=== PATIENT | female | born 1950 ===

== ENCOUNTER 2016-10-10 05:27 | Emergency (ER) | payer OTHER ==
[2016-10-10 05:34] VITALS: BMI 29.2
[2016-10-10 05:40] VITALS: RESP 18; TEMP 98.1
[2016-10-10] MEDS ORDERED: Oxycodone/Acetaminophen 5/325 mg Tab PO STA (05:44)
--- NOTE | 2016-10-10 05:45 | ED PDOC ---
Arrival/HPI - General Chief Complaint: Back Pain Time Seen by Provider: 10/10/16 05:34 Historian: Patient - History of Present Illness Narrative History of Present Illness (Text): 10/10/16 05:46 Cynthia Allen is a 65 year old female, with a history of stage 4 colon cancer, seizures, kidney stones, diabetes, and hypertension, presents to the emergency department complaining of sudden onset left posterior rib pain since 4 am today. States she woke up from sleep with the pain. Pain is worsened with movement and deep inspirations. Denies any history of trauma to the area. Denies any fever, chills, headache, dizziness, chest pain, difficulty breathing , nausea, vomiting, diarrhea, or any other complaints at this time. Time/Duration: 1-3 hours Symptom Onset: Sudden Symptom Course: Unchanged Severity Level: Mild Activities at Onset: Sleeping Context: Home Past Medical History - Provider Review Nursing Documentation Reviewed: Yes - Past History Past History: Non-Contributing - Infectious Disease Hx of Infectious Diseases: None - Tetanus Immunization Tetanus Immunization: Unknown - Past Medical History Past Medical History: No Previous - Cardiac Hx Cardiac Disorders: Yes Hx Hypertension: Yes Hx Pacemaker: No Other/Comment: vit d difficiency, hypercholesteremia - Pulmonary Hx Respiratory Disorders: Yes Hx Asthma: Yes Hx Pneumonia: Yes Other/Comment: x smoker - Neurological Hx Neurological Disorder: Yes Hx Paralysis: No Hx Seizures: Yes - HEENT Hx HEENT Disorder: No - Renal Hx Renal Disorder: No Hx Kidney Stones: Yes (cystoscopy with stent) Other/Comment: lithotripsy - Endocrine/Metabolic Hx Endocrine Disorders: Yes Hx Diabetes Mellitus Type 1: Yes Hx Diabetes Mellitus Type 2: Yes Other/Comment: niddm - Hematological/Oncological Hx Blood Disorders: Yes Hx Blood Transfusions: No Hx Blood Transfusion Reaction: No Hx Cancer: Yes (colon 2x dx 2009 and 2014) Hx Chemotherapy: Yes (2009 and 2014) Other/Comment: had chemo 5 days ago, has 9 cycles as per pt - Integumentary Hx Dermatological Disorder: No - Musculoskeletal/Rheumatological Hx Musculoskeletal Disorders: No Hx Arthritis: Yes Hx Back Pain: Yes Hx Falls: No Hx Fractures: Yes (left arm 01/03/15 casted) Hx Herniated Disk: Yes (lower back) Hx Unsteady Gait: Yes (cane) - Gastrointestinal Hx Gastrointestinal Disorders: Yes Other/Comment: PELVIC MASS L; colorectal cancer - Genitourinary/Gynecological Hx Genitourinary Disorders: Yes Other/Comment: urinary frequency - Psychiatric Hx Psychophysiologic Disorder: Yes Hx Anxiety: Yes Hx Depression: Yes Hx Emotional Abuse: No Hx Panic Disorder: Yes Hx Physical Abuse: No Hx Substance Use: No - Surgical History Hx Appendectomy: Yes (2009) Hx Cholecystectomy: Yes Hx Hysterectomy: Yes (11/29/14) Other/Comment: lithotripsy, colon resection 2009, r ovary oopherectomy 2009 - Anesthesia Hx Anesthesia: Yes Hx Anesthesia Reactions: No Hx Malignant Hyperthermia: No - Suicidal Assessment Feels Threatened In Home Enviroment: No Family/Social History - Physician Review Nursing Documentation Reviewed: Yes Family/Social History: No Known Family HX Smoking Status: Former Smoker Hx Alcohol Use: No Hx Substance Use: No Hx Substance Use Treatment: No Allergies/Home Meds Allergies/Adverse Reactions: Allergies No Known Allergies Allergy (Verified 07/19/16 15:12) Home Medications: Home Meds Medication Instructions Recorded Confirmed Simvastatin 20 mg PO DAILY 12/17/14 08/06/16 Capecitabine 500 mg PO BID 04/04/16 08/06/16 Metformin ER [Glucophage XR] 500 mg PO DAILY 07/19/16 08/06/16 Review of Systems - Physician Review All systems were reviewed & negative as marked: Yes - Review of Systems Constitutional: Normal. absent: Fatigue, Fevers Respiratory: Normal. absent: SOB, Cough, Sputum Cardiovascular: Normal. absent: Chest Pain Gastrointestinal: Normal. absent: Abdominal Pain, Diarrhea, Nausea, Vomiting Genitourinary Female: Normal Musculoskeletal: Back Pain (posterior rib pain ) Skin: Normal Neurological: Normal. absent: Headache, Dizziness Psychiatric: Normal Physical Exam Vital Signs Reviewed: Yes Vital Signs Temp Pulse Resp BP Pulse Ox 10/10/16 07:37 73 18 123/60 100 10/10/16 05:34 98.1 F 84 18 152/80 H 99 Temperature: Afebrile Blood Pressure: Normal Pulse: Regular Respiratory Rate: Normal Appearance: Positive for: Well-Appearing, Non-Toxic, Comfortable Pain Distress: None Mental Status: Positive for: Alert and Oriented X 3 - Systems Exam Head: Present: Atraumatic, Normocephalic Pupils: Present: PERRL Conjunctiva: Present: Normal Mouth: Present: Moist Mucous Membranes Neck: Present: Normal Range of Motion Respiratory/Chest: Present: Clear to Auscultation, Good Air Exchange. No: Respiratory Distress, Accessory Muscle Use Cardiovascular: Present: Regular Rate and Rhythm, Normal S1, S2. No: Murmurs Abdomen: Present: Normal Bowel Sounds. No: Tenderness, Distention, Peritoneal Signs Back: Present: Other (posterior rib tenderness to palpation ) Upper Extremity: Present: Normal Inspection. No: Cyanosis, Edema Lower Extremity: Present: Normal Inspection. No: Edema Neurological: Present: GCS=15, CN II-XII Intact, Speech Normal Skin: Present: Warm, Dry, Normal Color. No: Rashes Medical Decision Making ED Course and Treatment: 10/10/16 05:54 Impression: A 65 year old female who presents to the Emergency department complaining of left posterior rib pain since 4 am today. Plan: -- EKG -- Labs, caridac enzymes -- CXR -- percocet -- Urinalysis -- Reassess and disposition Progress Notes: Re-evaluation Time: 07:44 Reassessment Condition: Re-examined, Improved - Lab Interpretations Lab Results: 10/10/16 05:30 10/10/16 05:30 Lab Results 10/10/16 06:00: Urine Color Yellow, Urine Appearance Clear, Urine pH 6.0, Ur Specific Staples 1.015, Urine Protein Negative, Urine Glucose (UA) >=1000, Urine Ketones Negative, Urine Blood Trace-intact H, Urine Nitrate Negative, Urine Bilirubin Negative, Urine Urobilinogen 0.2, Ur Leukocyte Esterase Negative , Urine RBC 0 - 2, Urine WBC 0 - 2, Ur Epithelial Cells 0 - 2 10/10/16 05:30: Sodium 137, Potassium 4.1, Chloride 104, Carbon Dioxide 23, Anion Gap 14, BUN 17, Creatinine 0.7, Est GFR ( Amer) > 60, Est GFR (Non- Af Amer) > 60, Random Glucose 279 H, Calcium 8.9, Total Bilirubin 0.9, AST 91 H , ALT 80 H, Alkaline Phosphatase 132, Troponin I 0.02 D, Total Protein 7.6, Albumin 4.0, Globulin 3.6, Albumin/Globulin Ratio 1.1 10/10/16 05:30: WBC 6.6, RBC 4.33, Hgb 14.9, Hct 41.2, MCV 95.2, MCH 34.4, MCHC 36.2, RDW 14.1, Plt Count 117 L, MPV 10.2, Gran % 45.6 L, Lymph % (Auto) 39.8 H , [place] % (Auto) 11.2 H, Eos % (Auto) 2.9, Baso % (Auto) 0.5, Gran # 3.01, Lymph # 2.6, [place] # 0.7 H, Eos # 0.2, Baso # 0.03 - RAD Interpretation Radiology Orders: 10/10/16 05:44 CHEST TWO VIEWS (PA/LAT) [RAD] Stat - Medication Orders Current Medication Orders: Discontinued Medications Oxycodone/Acetaminophen (Percocet 5/325 Mg Tab) 1 tab PO STAT STA Stop: 10/10/16 05:45 Last Admin: 10/10/16 06:02 Dose: 1 tab - Scribe Statement The provider has reviewed the documentation as recorded by the Claudia Son Provider Attestation: All medical record entries made by the Sangiblucia were at my direction and personally dictated by me. I have reviewed the chart and agree that the record accurately reflects my personal performance of the history, physical exam, medical decision making, and the department course for this patient. I have also personally directed, reviewed, and agree with the discharge instructions and disposition. Disposition/Present on Arrival - Present on Arrival Any Indicators Present on Arrival: No History of DVT/PE: No History of Uncontrolled Diabetes: No Urinary Catheter: No History of Decub. Ulcer: No History Surgical Site Infection Following: None - Disposition Have Diagnosis and Disposition been Completed?: Yes Diagnosis: Musculoskeletal pain Disposition: HOME/ ROUTINE Disposition Time: 07:44 Condition: GOOD Discharge Instructions (ExitCare): Back Pain (ED) Prescriptions: traMADol [Ultram] 50 mg PO TID PRN #10 tab PRN Reason: Pain, Severe (8-10)
[2016-10-10 06:07] LABS: ADD MANUAL DIFF? NO
[2016-10-10 06:31] LABS: URINE BILIRUBIN NEGATIVE (NEGATIVE); URINE BLOOD TRACE-INTACT (NEGATIVE); URINE GLUCOSE (UA) >=1000 mg/dL (NEGATIVE); URINE KETONE NEGATIVE (NEGATIVE); URINE LEUKOCYTE ESTERASE NEGATIVE Leu/uL (NEGATIVE); URINE PROTEIN NEGATIVE mg/dL (<30 mg/dL); URINE UROBILINOGEN 0.2 E.U./dL (<1 E.U./dL)
[2016-10-10 06:33] LABS: TROPONIN I 0.02 ng/mL
[2016-10-10 06:39] LABS: BASO # 0.03 K/mm3 (0.0-2.0); BASO % 0.5 % (0.0-3.0); EOS # 0.2 (0.0-0.7); EOS % 2.9 % (1.5-5.0); GRAN # 3.01 (1.4-6.5); GRAN % 45.6 % (50.0-68.0); HEMATOCRIT 41.2 % (36.0-48.0); LYMPH # 2.6 (1.2-3.4); LYMPH % 39.8 % (22.0-35.0); MEAN CELL VOLUME 95.2 fL (80.0-105.0); MEAN CORPUSCULAR HEMOGLOBIN 34.4 pg (25.0-35.0); MEAN CORPUSCULAR HGB CONC 36.2 g/dl (31.0-37.0); MEAN PLATELET VOLUME 10.2 fl (7.0-11.0); MONO # 0.7 (0.1-0.6); MONO % 11.2 % (1.0-6.0); PLATELET COUNT 117 10^3/uL (120.0-450.0); RED CELL DISTRIBUTION WIDTH 14.1 % (11.5-14.5); WHITE BLOOD COUNT 6.6 10^3/ul (4.5-11.0)
[2016-10-10 06:42] LABS: ALB/GLOB RATIO 1.1 (1.1-1.8); ALKALINE PHOSPHATASE 132 U/L (38-133); ALT/SGPT 80 U/L (7-56); AST/SGOT 91 U/L (15-39); BILIRUBIN,TOTAL 0.9 mg/dL (0.2-1.3); BLOOD UREA NITROGEN 17 mg/dL (7-21); CALCIUM 8.9 mg/dL (8.4-10.5); CARBON DIOXIDE 23 mmol/L (21-33); CHLORIDE 104 mmol/L (95-110); GFR AFRICAN-AMERICAN > 60; GLUCOSE,RANDOM 279 mg/dL (70-110); POTASSIUM 4.1 mmol/L (3.6-5.0); SODIUM 137 mmol/L (132-148); TOTAL PROTEIN 7.6 g/dL (5.8-8.3)
[2016-10-10 07:01] LABS: URINE APPEARANCE CLEAR (CLEAR); URINE COLOR YELLOW (YELLOW)
[2016-10-10 07:05] LABS: URINE EPITHELIAL CELLS 0 - 2 /hpf (0-5); URINE RBC 0 - 2 /hpf (0-2); URINE WBC 0 - 2 /hpf (0-6)
[2016-10-10 07:38] VITALS: BP 123/60; PULSE 73; O2SAT 100
--- NOTE | 2016-10-10 07:41 | RAD ---
HISTORY: fall COMPARISON: 08/06/2016 TECHNIQUE: Chest PA and lateral FINDINGS: LUNGS: No active pulmonary disease. PLEURA: No significant pleural effusion identified. No pneumothorax apparent. CARDIOVASCULAR: Normal. OSSEOUS STRUCTURES: No significant abnormalities. VISUALIZED UPPER ABDOMEN: Normal. OTHER FINDINGS: Right PICC line insertion as before with tip in right atrium. Right upper quadrant cholecystectomy clips IMPRESSION: No interval active disease.
--- NOTE | 2016-10-10 12:51 | CARD ---
APPROVED REPORT EKG Measurement Heart [id number] <Conclusion> Normal sinus rhythm Moderate voltage criteria for LVH, may be normal variant Borderline ECG
== END 2016-10-10 07:54 | disposition home or self-care (01) ==
LOC: ED 05:27
DX: M79.1 Myalgia (principal); I10 Essential (primary) hypertension; Z85.038 Personal history of other malignant neoplasm of large intestine; Z87.891 Personal history of nicotine dependence

== ENCOUNTER 2016-10-23 17:49 | Emergency (ER) | payer OTHER ==
[2016-10-23 17:50] VITALS: BMI 29.2
[2016-10-23 17:57] VITALS: BP 157/73; PULSE 80; RESP 19; TEMP 98.2; O2SAT 97
--- NOTE | 2016-10-23 18:28 | ED PDOC ---
Arrival/HPI - General Historian: Patient - History of Present Illness Time/Duration: 4-6 hours Symptom Onset: Sudden Symptom Course: Unchanged Quality: Aching Severity Level: 8 <Narinder Saucedo - Last Filed: 10/23/16 21:16> <Dania Patrick - Last Filed: 10/23/16 21:23> - General Chief Complaint: Back Pain Time Seen by Provider: 10/23/16 17:59 - History of Present Illness Narrative History of Present Illness (Text): 65 F with pmh of colon cancer (stage 4), seizures, kidney stones, diabetes, and hypertension, presents to the ED complaining of R sided shoulder, back and knee pain. Pt states that the pain has been going on since 12pm. She states that she did some heavy lifting doing her shopping yesterday and she does not know if her pain is related to that. Her pain is worse with activity. She has tried taking tramadol for the pain with out any relief. She states that her back pain is what brought her into the ED and is 8/10 in severity. Denies any fever, chills, headache, dizziness, chest pain, palpitations, sob, nausea, vomiting, diarrhea, or any other complaints at this time. (Narinder Saucedo) Past Medical History - Provider Review Nursing Documentation Reviewed: Yes - Past History Past History: Non-Contributing - Infectious Disease Hx of Infectious Diseases: None - Tetanus Immunization Tetanus Immunization: Unknown - Past Medical History Past Medical History: No Previous - Cardiac Hx Cardiac Disorders: Yes Hx Hypertension: Yes Hx Pacemaker: No - Pulmonary Hx Respiratory Disorders: Yes Hx Asthma: Yes Hx Pneumonia: Yes Other/Comment: x smoker - Neurological Hx Neurological Disorder: Yes Hx Paralysis: No Hx Seizures: Yes - HEENT Hx HEENT Disorder: No - Renal Hx Renal Disorder: No Hx Kidney Stones: Yes (cystoscopy with stent) Other/Comment: lithotripsy - Endocrine/Metabolic Hx Endocrine Disorders: Yes Hx Diabetes Mellitus Type 2: Yes Other/Comment: niddm - Hematological/Oncological Hx Blood Disorders: Yes Hx Blood Transfusions: No Hx Blood Transfusion Reaction: No Hx Cancer: Yes (colo/rectal in remission) Hx Chemotherapy: Yes (2009 and 2014) Other/Comment: chemo PO - Integumentary Hx Dermatological Disorder: No - Musculoskeletal/Rheumatological Hx Musculoskeletal Disorders: No Hx Arthritis: Yes Hx Back Pain: Yes Hx Falls: No Hx Fractures: Yes (left arm 01/03/15 casted) Hx Herniated Disk: Yes (lower back) Hx Unsteady Gait: Yes (cane) - Gastrointestinal Hx Gastrointestinal Disorders: Yes Other/Comment: PELVIC MASS L; colorectal cancer - Genitourinary/Gynecological Hx Genitourinary Disorders: Yes Other/Comment: urinary frequency - Psychiatric Hx Psychophysiologic Disorder: Yes Hx Anxiety: Yes Hx Depression: Yes Hx Emotional Abuse: No Hx Panic Disorder: Yes Hx Physical Abuse: No Hx Substance Use: No - Surgical History Hx Appendectomy: Yes (2009) Hx Cholecystectomy: Yes Hx Hysterectomy: Yes (11/29/14) Other/Comment: lithotripsy, colon resection 2009, r ovary oopherectomy 2009 - Anesthesia Hx Anesthesia: Yes Hx Anesthesia Reactions: No Hx Malignant Hyperthermia: No - Suicidal Assessment Feels Threatened In Home Enviroment: No <Narinder Saucedo - Last Filed: 10/23/16 21:16> Family/Social History - Physician Review Nursing Documentation Reviewed: Yes Family/Social History: No Known Family HX Smoking Status: Former Smoker Hx Alcohol Use: No Hx Substance Use: No Hx Substance Use Treatment: No <Narinder Saucedo - Last Filed: 10/23/16 21:16> Allergies/Home Meds <Narinder Saucedo - Last Filed: 10/23/16 21:16> <Dania Patrick - Last Filed: 10/23/16 21:23> Allergies/Adverse Reactions: Allergies No Known Allergies Allergy (Verified 10/23/16 17:52) Home Medications: Home Meds Medication Instructions Recorded Confirmed Simvastatin 20 mg PO DAILY 12/17/14 10/23/16 Capecitabine 500 mg PO BID 04/04/16 10/23/16 Metformin ER [Glucophage XR] 500 mg PO DAILY 07/19/16 10/23/16 Review of Systems - Physician Review All systems were reviewed & negative as marked: Yes - Review of Systems Constitutional: absent: Weight Change, Fevers Eyes: absent: Vision Changes ENT: absent: Hearing Changes Respiratory: absent: SOB, Cough Cardiovascular: absent: Chest Pain, Palpitations Gastrointestinal: absent: Abdominal Pain, Diarrhea, Nausea, Vomiting Genitourinary Female: absent: Dysuria, Vaginal Discharge Musculoskeletal: Back Pain Neurological: absent: Headache, Dizziness, Focal Weakness Endocrine: absent: Diaphoresis Psychiatric: absent: Anxiety, Depression <Narinder Saucedo - Last Filed: 10/23/16 21:16> Physical Exam Vital Signs Reviewed: Yes Temperature: Afebrile Blood Pressure: Hypertensive Pulse: Regular Respiratory Rate: Normal Appearance: Positive for: Well-Appearing, Non-Toxic, Comfortable Pain Distress: Mild Mental Status: Positive for: Alert and Oriented X 3 - Systems Exam Head: Present: Atraumatic, Normocephalic Pupils: Present: PERRL Extroacular Muscles: Present: EOMI Mouth: Present: Moist Mucous Membranes Neck: Present: Normal Range of Motion Respiratory/Chest: Present: Clear to Auscultation, Good Air Exchange. No: Respiratory Distress, Accessory Muscle Use Cardiovascular: Present: Regular Rate and Rhythm, Normal S1, S2. No: Murmurs Abdomen: Present: Normal Bowel Sounds. No: Tenderness, Distention, Peritoneal Signs Back: Present: Normal Inspection, Paraspinal Tenderness (mild ). No: Midline Tenderness Upper Extremity: Present: Normal Inspection. No: Cyanosis, Edema Lower Extremity: Present: Normal Inspection. No: Edema Neurological: Present: GCS=15, CN II-XII Intact, Speech Normal Skin: Present: Warm, Dry, Normal Color. No: Rashes Psychiatric: Present: Alert, Oriented x 3, Normal Insight, Normal Concentration <Narinder Saucedo - Last Filed: 10/23/16 21:16> Medical Decision Making <Narinder Saucedo - Last Filed: 10/23/16 21:16> - Lab Interpretations I have reviewed the lab results: Yes <Dania Patrick - Last Filed: 10/23/16 21:23> ED Course and Treatment: Impression: 65 F with pmh of colon cancer (stage 4), seizures, kidney stones, diabetes, and hypertension, presents to the ED complaining of R sided shoulder, back and knee pain. Differential Diagnosis included but are not limited to: MSK sprain vs spinal mets vs pyelo vs nephrolithiasis Plan: - CBC, CMP, Mg, P - Urinalysis - Pain control - CT abd pelvis w/o contrast - CT lumbar spine to r/o mets - Reassess and disposition Prior Visits: Notes and results from previous visits were reviewed. Patient last came into the emergency room on 10/10/16 for evaluation of L post rib pain Progress Notes: 10/23/16 21:05 CT abd pelvis w/o contrast IMPRESSION: 1. Cholecystectomy. 2. Nonobstructive stone material in the left kidney. 3. Hysterectomy. 4. Apparent sigmoid resection. 5. Fatty liver. CT lumbar spine to r/o mets IMPRESSION: Degenerative changes as described. 10/23/16 21:11 Upon reevaluation patient pain has clinically significantly improved. Will d/c patient home with instructions to follow up with PMD. (Narinder Saucedo) Patient seen and examined with resident. Came up with treatment and disposition plan with resident. The patient is a 65 year old female who comes to the emergency department for evaluation of right sided shoulder, back and knee pain. Additional HPI details as noted by the resident. On physical examination the patient has mild tenderness to palpation at the right paralumbar region. Abdomen/Pelvis CT, Lumbar Spine CT,lab work and Urinalysis ordered to rule out fracture vs. sprain vs spinal mets vs pyelo vs nephrolithiasis. Abdomen/Pelvis CT shows Cholecystectomy; Nonobstructive stone material in the left kidney; Hysterectomy; Apparent sigmoid resection; Fatty liver. Lumbar Spine CT shows degenerative changes. On re-evaluation, the patient feels better and is in no acute distress. Results and plan was discussed with the patient, who expresses understanding. Patient in agreement with plan to discharged home. Patient is stable for discharge. Patient was instructed to follow up with physician/clinic in 1-2 days or return if symptoms worsen or new concerning symptoms arise. (Dania Patrick) - Lab Interpretations Lab Results: 10/23/16 18:35 10/23/16 18:35 Lab Results 10/23/16 18:35: Sodium 135, Potassium 4.0, Chloride 98, Carbon Dioxide 26, Anion Gap 15, BUN 11, Creatinine 0.7, Est GFR ( Amer) > 60, Est GFR (Non- Af Amer) > 60, Random Glucose 300 H, Calcium 9.5, Phosphorus 3.7, Magnesium 2.0 , Total Bilirubin 1.1, AST 100 H, ALT 90 H, Alkaline Phosphatase 131, Total Protein 8.1, Albumin 4.2, Globulin 3.9, Albumin/Globulin Ratio 1.1, Lipase 172 10/23/16 18:35: WBC 7.9, RBC 4.59, Hgb 15.8, Hct 43.5, MCV 94.8, MCH 34.4, MCHC 36.3, RDW 13.9, Plt Count 142, MPV 10.2, Gran % 47.2 L, Lymph % (Auto) 41.5 H, [place] % (Auto) 8.6 H, Eos % (Auto) 2.3, Baso % (Auto) 0.4, Gran # 3.73, Lymph # 3.3, [place] # 0.7 H, Eos # 0.2, Baso # 0.03 - RAD Interpretation Radiology Orders: 10/23/16 18:19 ABD & PELVIS W/O PO OR IV CONT [CT] Stat LUMBAR SPINE W/O CONTRAST [CT] Stat - Medication Orders Current Medication Orders: Discontinued Medications Diazepam (Valium) 2.5 mg PO ONCE ONE Stop: 10/23/16 18:33 Last Admin: 10/23/16 18:47 Dose: 2.5 mg Ketorolac Tromethamine (Toradol) 30 mg IVP STAT STA Stop: 10/23/16 18:32 Last Admin: 10/23/16 18:46 Dose: 30 mg Morphine Sulfate (Morphine) 2 mg IVP STAT STA Stop: 10/23/16 18:33 Last Admin: 10/23/16 18:46 Dose: 2 mg - PA / [employer] / Resident Statement / has reviewed & agrees with the documentation as recorded. / has examined the patient and agrees with the treatment plan. <Narinder Saucedo - Last Filed: 10/23/16 21:16> - Scribe Statement The provider has reviewed the documentation as recorded by the Scribe <Dania Patrick - Last Filed: 10/23/16 21:23> - Scribe Statement Sanjiv Casarez Provider Scribe Attestation: All medical record entries made by the Scribe were at my direction and personally dictated by me. I have reviewed the chart and agree that the record accurately reflects my personal performance of the history, physical exam, medical decision making, and the department course for this patient. I have also personally directed, reviewed, and agree with the discharge instructions and disposition. (Dania Patrick) Disposition/Present on Arrival - Present on Arrival Any Indicators Present on Arrival: No History of DVT/PE: No History of Uncontrolled Diabetes: No Urinary Catheter: No History of Decub. Ulcer: No History Surgical Site Infection Following: None - Disposition Have Diagnosis and Disposition been Completed?: Yes Disposition Time: 21:11 Patient Plan: Discharge <Narinder Saucedo - Last Filed: 10/23/16 21:16> <Dania Patrick - Last Filed: 10/23/16 21:23> - Disposition Diagnosis: Back ache Disposition: HOME/ ROUTINE Patient Problems: Current Active Problems Problem Status Onset Back ache Acute Additional Instructions: Take your medications as prescribed. Follow up with PMD with in next 3 days. If your symptoms recur come back to the closest ED. Prescriptions: Baclofen [Lioresal] 1 cap PO TID PRN #20 tab PRN Reason: Pain, Moderate (4-7) Celecoxib [Celebrex] 100 mg PO BID PRN #30 capsule PRN Reason: Pain, Moderate (4-7)
[2016-10-23] MEDS ORDERED: Morphine 2 mg/ml ISec IVP STA (18:32)
[2016-10-23 18:36] LABS: ADD MANUAL DIFF? NO
[2016-10-23 18:44] LABS: BASO # 0.03 [, K/mm3] (0.0-2.0); BASO % 0.4 % (0.0-3.0); EOS # 0.2 (0.0-0.7); EOS % 2.3 % (1.5-5.0); GRAN # 3.73 (1.4-6.5); GRAN % 47.2 % (50.0-68.0); HEMATOCRIT 43.5 % (36.0-48.0); LYMPH # 3.3 (1.2-3.4); LYMPH % 41.5 % (22.0-35.0); MEAN CELL VOLUME 94.8 fL (80.0-105.0); MEAN CORPUSCULAR HEMOGLOBIN 34.4 pg (25.0-35.0); MEAN CORPUSCULAR HGB CONC 36.3 g/dl (31.0-37.0); MEAN PLATELET VOLUME 10.2 fl (7.0-11.0); MONO # 0.7 (0.1-0.6); MONO % 8.6 % (1.0-6.0); PLATELET COUNT 142 [, 10^3/uL] (120.0-450.0); RED CELL DISTRIBUTION WIDTH 13.9 % (11.5-14.5); WHITE BLOOD COUNT 7.9 [, 10^3/ul] (4.5-11.0)
[2016-10-23 18:52] LABS: ALB/GLOB RATIO 1.1 (1.1-1.8); ALKALINE PHOSPHATASE 131 U/L (38-133); ALT/SGPT 90 U/L (7-56); AST/SGOT 100 U/L (15-39); BILIRUBIN,TOTAL 1.1 mg/dL (0.2-1.3); BLOOD UREA NITROGEN 11 mg/dL (7-21); CALCIUM 9.5 mg/dL (8.4-10.5); CARBON DIOXIDE 26 mmol/L (21-33); CHLORIDE 98 mmol/L (98-107); GFR AFRICAN-AMERICAN > 60; LIPASE 172 U/L (23-300); PHOSPHOROUS 3.7 mg/dL (2.5-4.5); SODIUM 135 mmol/L (132-148); TOTAL PROTEIN 8.1 g/dL (5.8-8.3)
[2016-10-23 19:00] LABS: GLUCOSE,RANDOM 300 mg/dL (70-110)
--- NOTE | 2016-10-24 10:20 | CT ---
PROCEDURE: CT Lumbar Spine without contrast HISTORY: Back pain COMPARISON: None. TECHNIQUE: Axial computed tomography images were obtained of the lumbar spine without the use of intravenous contrast. Coronal and sagittal reformatted images were created and reviewed. Radiation dose: Total exam DLP = 637 mGy-cm. This CT exam was performed using one or more of the following dose reduction techniques: Automated exposure control, adjustment of the mA and/or kV according to patient size, and/or use of iterative reconstruction technique. FINDINGS: VERTEBRAE: Unremarkable. No fracture. Normal alignment. DISCS/SPINAL CANAL/NEURAL FORAMINA: L1-2: Unremarkable. L2-3: Unremarkable. L3-4: Unremarkable. L4-5: Mild to moderate disc bulge. Mild stenosis L5-S1: Moderate disc bulge or broad-based protrusion slightly asymmetric to the left PARASPINAL SOFT TISSUES: Unremarkable. OTHER FINDINGS: None. IMPRESSION: L4-5 mild to moderate disc bulge with mild central stenosis. L5-S1 moderate broad-based disc protrusion asymmetric to the left
--- NOTE | 2016-10-24 10:41 | CT ---
PROCEDURE: CT Abdomen and Pelvis without intravenous contrast HISTORY: back pain COMPARISON: None. TECHNIQUE: Without contrast.. Contrast Dose: Radiation dose: Total exam DLP = 476 mGy-cm. This CT exam was performed using one or more of the following dose reduction techniques: Automated exposure control, adjustment of the mA and/or kV according to patient size, and/or use of iterative reconstruction technique. FINDINGS: LOWER THORAX: Unremarkable. LIVER: Unremarkable. No gross lesion or ductal dilatation. GALLBLADDER AND BILE DUCTS: Gallbladder removed PANCREAS: Unremarkable. No gross lesion or ductal dilatation. SPLEEN: Unremarkable. ADRENALS: Unremarkable. No mass. KIDNEYS AND URETERS: Nonobstructing 8 mm stone left kidney VASCULATURE: Unremarkable. No aortic aneurysm. BOWEL: Unremarkable. No obstruction. No gross mural thickening. Suture line in the sigmoid colon. APPENDIX: Unremarkable. Normal appendix. PERITONEUM: Unremarkable. No free fluid. No free air. LYMPH NODES: Unremarkable. No enlarged lymph nodes. BLADDER: Unremarkable. REPRODUCTIVE: Unremarkable. BONES: No acute fracture. OTHER FINDINGS: The report concurs with the preliminary [facility] report IMPRESSION: No acute intra-abdominal findings.
== END 2016-10-23 21:25 | disposition home or self-care (01) ==
LOC: ED 17:49
DX: M54.9 Dorsalgia, unspecified (principal); I10 Essential (primary) hypertension; Z87.891 Personal history of nicotine dependence
CPT/HCPCS: 72131; 74176; 80053; 83690; 83735; 84100; 85025; 96374; 96375; 99283; J1885; J2270

== ENCOUNTER 2016-11-07 05:54 | Observation (INO) | payer OTHER ==
[2016-11-07 05:54] VITALS: BMI 29.2
--- NOTE | 2016-11-07 06:27 | ED PDOC ---
Arrival/HPI - General Chief Complaint: Chest Pain Time Seen by Provider: 11/07/16 05:55 - History of Present Illness Narrative History of Present Illness (Text): 11/07/16 06:26 Patient presents with midsternal chest pain awoke from sleep at 5:15 pain is worse with deep breath and inspiration and to palpation of the chest wall she denies any fever denies any chills denies any dizziness and denies any headache or shortness of breath Past Medical History - Provider Review Nursing Documentation Reviewed: Yes - Past History Past History: Non-Contributing - Infectious Disease Hx of Infectious Diseases: None - Tetanus Immunization Tetanus Immunization: Unknown - Past Medical History Past Medical History: No Previous - Cardiac Hx Cardiac Disorders: Yes Hx Hypertension: Yes Hx Pacemaker: No - Pulmonary Hx Respiratory Disorders: Yes Hx Asthma: Yes Hx Pneumonia: Yes Other/Comment: x smoker - Neurological Hx Neurological Disorder: Yes Hx Paralysis: No Hx Seizures: Yes - HEENT Hx HEENT Disorder: No - Renal Hx Renal Disorder: No Hx Kidney Stones: Yes (cystoscopy with stent) Other/Comment: lithotripsy - Endocrine/Metabolic Hx Endocrine Disorders: Yes Hx Diabetes Mellitus Type 2: Yes Other/Comment: niddm - Hematological/Oncological Hx Blood Disorders: Yes Hx Blood Transfusions: No Hx Blood Transfusion Reaction: No Hx Cancer: Yes (colo/rectal in remission) Hx Chemotherapy: Yes (2009 and 2014) Other/Comment: chemo PO - Integumentary Hx Dermatological Disorder: No - Musculoskeletal/Rheumatological Hx Musculoskeletal Disorders: No Hx Arthritis: Yes Hx Back Pain: Yes Hx Falls: No Hx Fractures: Yes (left arm 01/03/15 casted) Hx Herniated Disk: Yes (lower back) Hx Unsteady Gait: Yes (cane) - Gastrointestinal Hx Gastrointestinal Disorders: Yes Other/Comment: PELVIC MASS L; colorectal cancer - Genitourinary/Gynecological Hx Genitourinary Disorders: Yes Other/Comment: urinary frequency - Psychiatric Hx Psychophysiologic Disorder: Yes Hx Anxiety: Yes Hx Depression: Yes Hx Emotional Abuse: No Hx Panic Disorder: Yes Hx Physical Abuse: No Hx Substance Use: No - Surgical History Hx Appendectomy: Yes (2009) Hx Cholecystectomy: Yes Hx Hysterectomy: Yes (11/29/14) Other/Comment: lithotripsy, colon resection 2009, r ovary oopherectomy 2009 - Anesthesia Hx Anesthesia: Yes Hx Anesthesia Reactions: No Hx Malignant Hyperthermia: No - Suicidal Assessment Feels Threatened In Home Enviroment: No Family/Social History - Physician Review Nursing Documentation Reviewed: Yes Family/Social History: No Known Family HX Smoking Status: Former Smoker Hx Alcohol Use: No Hx Substance Use: No Hx Substance Use Treatment: No Allergies/Home Meds Allergies/Adverse Reactions: Allergies No Known Allergies Allergy (Verified 10/23/16 17:52) Home Medications: Home Meds Medication Instructions Recorded Confirmed Simvastatin 20 mg PO DAILY 12/17/14 11/07/16 Capecitabine 500 mg PO BID 04/04/16 11/07/16 Metformin ER [Glucophage XR] 500 mg PO DAILY 07/19/16 11/07/16 Review of Systems - Physician Review All systems were reviewed & negative as marked: Yes - Review of Systems Constitutional: Normal Eyes: Normal ENT: Normal Respiratory: Normal Cardiovascular: Chest Pain. absent: KHAN Gastrointestinal: Normal Genitourinary Female: Normal Musculoskeletal: Normal Skin: Normal Neurological: Normal Endocrine: Normal Hemo/Lymphatic: Normal Psychiatric: Normal Physical Exam Vital Signs Reviewed: Yes Vital Signs Temp Pulse Pulse Resp BP BP Pulse Ox 11/07/16 11:31 98.9 F 69 14 135/74 98 11/07/16 09:58 65 15 139/75 98 11/07/16 06:15 62 154/78 H 11/07/16 05:57 98.1 F 74 18 183/80 H 99 Temperature: Afebrile Blood Pressure: Normal Pulse: Regular Respiratory Rate: Normal Appearance: Positive for: Well-Appearing, Non-Toxic, Comfortable Pain Distress: None Mental Status: Positive for: Alert and Oriented X 3 - Systems Exam Head: Present: Atraumatic, Normocephalic Pupils: Present: PERRL Extroacular Muscles: Present: EOMI Conjunctiva: Present: Normal Mouth: Present: Moist Mucous Membranes Neck: Present: Normal Range of Motion Respiratory/Chest: Present: Clear to Auscultation, Good Air Exchange, Tender to Palpation (Midsternum). No: Respiratory Distress, Accessory Muscle Use Cardiovascular: Present: Regular Rate and Rhythm, Normal S1, S2. No: Murmurs Abdomen: Present: Normal Bowel Sounds. No: Tenderness, Distention, Peritoneal Signs Back: Present: Normal Inspection Upper Extremity: Present: Normal Inspection. No: Cyanosis, Edema Lower Extremity: Present: Normal Inspection. No: Edema Neurological: Present: GCS=15, CN II-XII Intact, Speech Normal Skin: Present: Warm, Dry, Normal Color. No: Rashes Psychiatric: Present: Alert, Oriented x 3, Normal Insight, Normal Concentration Medical Decision Making - Lab Interpretations Lab Results: 11/07/16 07:00 11/07/16 07:00 Lab Results 11/07/16 07:30: Urine Color Yellow, Urine Appearance Sl cloudy, Urine pH 6.0, Ur Specific [place] 1.025, Urine Protein Negative, Urine Glucose (UA) >=1000, Urine Ketones Negative, Urine Blood Trace-intact H, Urine Nitrate Positive H, Urine Bilirubin Negative, Urine Urobilinogen 0.2, Ur Leukocyte Esterase Trace H , Urine RBC 0 - 2, Urine WBC Tntc, Ur Epithelial Cells 1 - 3, Urine Bacteria Large 11/07/16 07:00: Sodium 136, Potassium 4.0, Chloride 103, Carbon Dioxide 28, Anion Gap 9 L, BUN 9, Creatinine 0.7, Est GFR ( Amer) > 60, Est GFR (Non- Af Amer) > 60, Random Glucose 298 H, Calcium 8.9, Magnesium 2.0, Total Bilirubin 0.9, AST 75 H, ALT 87 H, Alkaline Phosphatase 105, Lactate Dehydrogenase 624, Total Creatine Kinase 70, Troponin I 0.02, NT-Pro-B Natriuret Pep 63.4, Total Protein 6.9, Albumin 3.6, Globulin 3.2, Albumin/ Globulin Ratio 1.1 11/07/16 07:00: D-Dimer, Quantitative 0.27 11/07/16 07:00: WBC 6.7, RBC 4.13, Hgb 14.1, Hct 39.4, MCV 95.4, MCH 34.1, MCHC 35.8, RDW 13.9, Plt Count 119 L, MPV 10.5, Gran % 47.2 L, Lymph % (Auto) 38.2 H , [place] % (Auto) 11.5 H, Eos % (Auto) 2.5, Baso % (Auto) 0.6, Gran # 3.14, Lymph # 2.6, [place] # 0.8 H, Eos # 0.2, Baso # 0.04 - RAD Interpretation Radiology Orders: 11/07/16 06:28 CHEST PORTABLE [RAD] Stat - EKG Interpretation EKG Interpretation (Text): 11/07/16 06:29 normal sinus rhythm rate 69 , ns st changes - Medication Orders Current Medication Orders: Atorvastatin Calcium (Lipitor) 20 mg PO DAILY [facility] Carbamazepine (Tegretol) 200 mg PO BID RASHEEDA PRN Reason: Protocol Last Admin: 11/07/16 18:14 Dose: 200 mg Insulin Human Lispro (Humalog Med) 0 units SC ACHS [facility] PRN Reason: Protocol Levetiracetam (Keppra) 750 mg PO BID [facility] Last Admin: 11/07/16 18:14 Dose: 750 mg Levofloxacin (Levaquin) 500 mg PO DAILY [facility] Last Admin: 11/07/16 18:16 Dose: 500 mg Metformin HCl (Glucophage Xr) 500 mg PO DAILY [facility] Last Admin: 11/07/16 11:51 Dose: 500 mg Naproxen (Anaprox Ds) 550 mg PO BID [facility] Last Admin: 11/07/16 18:15 Dose: 550 mg Discontinued Medications Atorvastatin Calcium (Lipitor) 10 mg PO DAILY [facility] Last Admin: 11/07/16 11:48 Dose: 10 mg Ceftriaxone Sodium (Rocephin 1 Gram Ivpb) 1 gm in 100 mls @ 200 mls/hr IVPB STAT STA PRN Reason: Protocol Stop: 11/07/16 10:12 Last Admin: 11/07/16 09:53 Dose: 200 mls/hr Naproxen (Anaprox Ds) 550 mg PO STAT STA Stop: 11/07/16 12:02 Last Admin: 11/07/16 12:53 Dose: 550 mg - Transfer of Care Patient signed out to Dr:: juli labs re eval and dispo Disposition/Present on Arrival - Present on Arrival Any Indicators Present on Arrival: No History of DVT/PE: No History of Uncontrolled Diabetes: No Urinary Catheter: No History of Decub. Ulcer: No History Surgical Site Infection Following: None - Disposition Have Diagnosis and Disposition been Completed?: Yes Diagnosis: UTI (urinary tract infection), Chest pain Disposition: HOSPITALIZED Disposition Time: 07:00 Patient Problems: Current Active Problems Problem Status Onset Chest pain Acute UTI (urinary tract infection) Acute Condition: STABLE
[2016-11-07 07:30] LABS: ADD MANUAL DIFF? NO
[2016-11-07 07:41] LABS: URINE BILIRUBIN NEGATIVE (NEGATIVE); URINE BLOOD TRACE-INTACT (NEGATIVE); URINE GLUCOSE (UA) >=1000 mg/dL (NEGATIVE); URINE KETONE NEGATIVE (NEGATIVE); URINE LEUKOCYTE ESTERASE TRACE Leu/uL (NEGATIVE); URINE PROTEIN NEGATIVE mg/dL (<30 mg/dL); URINE UROBILINOGEN 0.2 E.U./dL (<1 E.U./dL)
[2016-11-07 07:43] LABS: BASO # 0.04 K/mm3 (0.0-2.0); BASO % 0.6 % (0.0-3.0); EOS # 0.2 (0.0-0.7); EOS % 2.5 % (1.5-5.0); GRAN # 3.14 (1.4-6.5); GRAN % 47.2 % (50.0-68.0); HEMATOCRIT 39.4 % (36.0-48.0); LYMPH # 2.6 (1.2-3.4); LYMPH % 38.2 % (22.0-35.0); MEAN CELL VOLUME 95.4 fL (80.0-105.0); MEAN CORPUSCULAR HEMOGLOBIN 34.1 pg (25.0-35.0); MEAN CORPUSCULAR HGB CONC 35.8 g/dl (31.0-37.0); MEAN PLATELET VOLUME 10.5 fl (7.0-11.0); MONO # 0.8 (0.1-0.6); MONO % 11.5 % (1.0-6.0); PLATELET COUNT 119 10^3/uL (120.0-450.0); RED CELL DISTRIBUTION WIDTH 13.9 % (11.5-14.5); WHITE BLOOD COUNT 6.7 10^3/ul (4.5-11.0)
[2016-11-07 07:47] LABS: URINE APPEARANCE SL CLOUDY (CLEAR); URINE COLOR YELLOW (YELLOW)
[2016-11-07 07:47] LABS: ALB/GLOB RATIO 1.1 (1.1-1.8); ALKALINE PHOSPHATASE 105 U/L (38-133); ALT/SGPT 87 U/L (7-56); AST/SGOT 75 U/L (15-39); BILIRUBIN,TOTAL 0.9 mg/dL (0.2-1.3); BLOOD UREA NITROGEN 9 mg/dL (7-21); CALCIUM 8.9 mg/dL (8.4-10.5); CARBON DIOXIDE 28 mmol/L (21-33); CHLORIDE 103 mmol/L (98-107); GFR AFRICAN-AMERICAN > 60; GLUCOSE,RANDOM 298 mg/dL (70-110); SODIUM 136 mmol/L (132-148); TOTAL PROTEIN 6.9 g/dL (5.8-8.3)
[2016-11-07 07:53] LABS: URINE BACTERIA LARGE (NEG); URINE RBC 0 - 2 /hpf (0-2); URINE WBC TNTC /hpf (0-6)
[2016-11-07 07:59] LABS: TROPONIN I 0.02 ng/mL
--- NOTE | 2016-11-07 08:48 | ED PDOC ---
Physical Exam Vital Signs Temp Pulse Pulse Resp BP BP Pulse Ox 11/07/16 06:15 62 154/78 H 11/07/16 05:57 98.1 F 74 18 183/80 H 99 Medical Decision Making ED Course and Treatment: 11/07/16 07:00 Patient signed out to me by Dr. De Jesus pending labs, reevaluation, and disposition. 11/07/16 09:[address] Adhikari, covering for Dr. Shea, agrees with admission to [facility], asked to consult Dr. Lovelace. - Lab Interpretations Lab Results: 11/07/16 07:00 11/07/16 07:00 Lab Results 11/07/16 07:30: Urine Color Yellow, Urine Appearance Sl cloudy, Urine pH 6.0, Ur Specific [place] 1.025, Urine Protein Negative, Urine Glucose (UA) >=1000, Urine Ketones Negative, Urine Blood Trace-intact H, Urine Nitrate Positive H, Urine Bilirubin Negative, Urine Urobilinogen 0.2, Ur Leukocyte Esterase Trace H , Urine RBC 0 - 2, Urine WBC Tntc, Ur Epithelial Cells 1 - 3, Urine Bacteria Large 11/07/16 07:00: Sodium 136, Potassium 4.0, Chloride 103, Carbon Dioxide 28, Anion Gap 9 L, BUN 9, Creatinine 0.7, Est GFR ( Amer) > 60, Est GFR (Non- Af Amer) > 60, Random Glucose 298 H, Calcium 8.9, Magnesium 2.0, Total Bilirubin 0.9, AST 75 H, ALT 87 H, Alkaline Phosphatase 105, Lactate Dehydrogenase 624, Total Creatine Kinase 70, Troponin I 0.02, NT-Pro-B Natriuret Pep 63.4, Total Protein 6.9, Albumin 3.6, Globulin 3.2, Albumin/ Globulin Ratio 1.1 11/07/16 07:00: D-Dimer, Quantitative 0.27 11/07/16 07:00: WBC 6.7, RBC 4.13, Hgb 14.1, Hct 39.4, MCV 95.4, MCH 34.1, MCHC 35.8, RDW 13.9, Plt Count 119 L, MPV 10.5, Gran % 47.2 L, Lymph % (Auto) 38.2 H , [place] % (Auto) 11.5 H, Eos % (Auto) 2.5, Baso % (Auto) 0.6, Gran # 3.14, Lymph # 2.6, [place] # 0.8 H, Eos # 0.2, Baso # 0.04 - RAD Interpretation Radiology Orders: 11/07/16 06:28 CHEST PORTABLE [RAD] Stat - Medication Orders Current Medication Orders: Ceftriaxone Sodium (Rocephin 1 Gram Ivpb) 1 gm in 100 mls @ 200 mls/hr IVPB STAT STA PRN Reason: Protocol Stop: 11/07/16 10:12 Disposition/Present on Arrival - Present on Arrival Any Indicators Present on Arrival: No History of DVT/PE: No History of Uncontrolled Diabetes: No Urinary Catheter: No History of Decub. Ulcer: No History Surgical Site Infection Following: None - Disposition Have Diagnosis and Disposition been Completed?: Yes Diagnosis: UTI (urinary tract infection), Chest pain Disposition: HOSPITALIZED Disposition Time: 09:45 Patient Problems: Current Active Problems Problem Status Onset Chest pain Acute UTI (urinary tract infection) Acute Condition: STABLE
--- NOTE | 2016-11-07 09:14 | RAD ---
HISTORY: cp COMPARISON: 10/10/2016 FINDINGS: LUNGS: No active pulmonary disease. PLEURA: No significant pleural effusion identified, no pneumothorax apparent. CARDIOVASCULAR: Normal. OSSEOUS STRUCTURES: No significant abnormalities. VISUALIZED UPPER ABDOMEN: Normal. OTHER FINDINGS: None. IMPRESSION: No active disease.
[2016-11-07] MEDS ORDERED: cefTRIAXone 1 gm 1 GM/100 ML BAG IVPB STA (09:43)
--- NOTE | 2016-11-07 10:00 | CARD ---
APPROVED REPORT EKG Measurement Heart [id number] <Conclusion> Normal sinus rhythm Moderate voltage criteria for LVH, may be normal variant Borderline ECG
[2016-11-07] MEDS ORDERED: Naproxen 550 mg Tab PO STA (12:01)
--- NOTE | 2016-11-07 14:17 | CON ---
DATE: 11/07/2016 HISTORY OF PRESENT ILLNESS: The patient is a 65-year-old woman who presented with 24 hours of focal chest pain. Her symptoms are described as focal chest pain which is substernal that only hurts when she touches the skin. No exertional component to it. PAST MEDICAL HISTORY: Free of cardiac disease. A stress test 2 years ago revealed normal LV function with no ischemic changes. Her cardiac risk factors include diabetes mellitus, hypercholesterolemia. SOCIAL HISTORY: Denies smoking. REVIEW OF SYSTEMS: A 14-point review of systems was reviewed. Fatigue is her only complaint. PHYSICAL EXAMINATION: VITAL SIGNS: Blood pressure 135/74, the heart rate is in the 60s. NECK: Negative JVD. LUNGS: Without rales. HEART: Revealed S1, S2. The pain is reproducible on palpating her skin with there are no rashes not ed. EKG is unremarkable. LABORATORIES: Troponin is negative x 1. LFTs are mildly elevated. Hemoglobin is 14.1. IMPRESSION: 1. Atypical chest pain. 2. No evidence for acute coronary syndrome. 3. Diabetes mellitus. 4. Hypercholesterolemia. 5. Fatigue. Given these findings, will obtain another troponin. If negative, the patient can be discharged. Giv en her cardiac risk factors, will arrange for an outpatient stress test. Benjie Lovelace MD cc: [id number] TT: 11/07/2016 14:16:31 Confirmation # [id number] Dictation # [id number]
[2016-11-07 17:12] LABS: CHOLESTEROL 264 mg/dL (130-200)
[2016-11-07 17:30] LABS: TROPONIN I < 0.01 ng/mL
[2016-11-07] MEDS: Naproxen 550 mg Tab PO SCH (18:15)
[2016-11-07] MEDS: levoFLOXacin 500 MG TAB PO SCH (18:16)
--- NOTE | 2016-11-07 20:19 | HP ---
HISTORY OF PRESENT ILLNESS: The patient is a 65-year-old, patient of Dr. Shea. She went to see im. When she complained of chest pain, he referred her to Emergency Room for further evaluation. Th e patient states she was having chest pain since last night, more on moving certain ways, more on pre ssing and also the pain gets worse with coughing and sneezing. PAST MEDICAL HISTORY: Significant for: 1. Hypertension. 2. Non-insulin dependent diabetes. 3. Generalized osteoarthritis. 4. History of seizure disorder. ALLERGIES: She is not allergic to any medications. MEDICATIONS AT HOME: She is on capecitabine 500 twice a day, Keppra 750 b.i.d., Tegretol 200 twice a day, simvastatin 20 mg daily, metformin 500 daily, mg daily, and baclofen 1 capsule 3 times a day. SOCIAL HISTORY: Used to smoke in the remote past, but does not smoke anymore. Denies alcohol use. REVIEW OF SYSTEMS: Significant for pain, more so on pressing. PHYSICAL EXAMINATION: GENERAL: The patient is awake and alert, communicative. VITAL SIGNS: She is afebrile, pulse 64, respirations 18, blood pressure 143/73. LUNGS: Bilateral fair airflow, no rhonchi or crackle. HEART: S1, S2 audible. ABDOMEN: Soft, nontender, no rebound, no guarding. NEUROLOGIC: The patient is awake and alert, able to communicate. LABORATORY DATA: WBC 6.7, hemoglobin 14, hematocrit 39, platelets 119. D-dimer 0.27. Chemistry: S odium 136, potassium 4.0, chloride 103, CO2 of 28, BUN 9, creatinine 0.7, blood sugar of 290, random blood sugar is 298, AST 75, ALT 87, triglycerides 248, total cholesterol is 264, LDL is 166. Urinaly sis, positive nitrites and trace leukocyte, WBC too numerous to count. She had an EKG done that show s normal sinus rhythm, moderate voltage criteria. ASSESSMENT: 1. Chest pain, noncardiac. 2. Costochondritis. 3. History of generalized osteoarthritis. 4. History of seizure disorder. 5. Non-insulin dependent diabetes. 6. Status post hysterectomy, cholecystectomy, appendectomy. PLAN: The patient will be placed in observation. We will monitor cardiac enzymes. Will follow chad rosenthal. Empirically start her on Levaquin and also start NSAID. Dr. Lovelace has evaluated the patien t. Echocardiogram has been ordered. If patient remains stable, possible discharge in a.m. Kirstin Adhikari MD cc: [phone] TT: 11/07/2016 20:18:55 rn
[2016-11-07] MEDS: Insulin Lispro (humaLOG) MEDIUM Coverage SC SCH (21:27)
[2016-11-08 00:02] VITALS: O2SAT 97
[2016-11-08 06:43] LABS: ALB/GLOB RATIO 1.1 (1.1-1.8); ALKALINE PHOSPHATASE 106 U/L (38-133); ALT/SGPT 81 U/L (7-56); AST/SGOT 63 U/L (15-39); BILIRUBIN,TOTAL 0.7 mg/dL (0.2-1.3); BLOOD UREA NITROGEN 14 mg/dL (7-21); CALCIUM 8.7 mg/dL (8.4-10.5); CARBON DIOXIDE 26 mmol/L (21-33); CHLORIDE 106 mmol/L (95-110); GFR AFRICAN-AMERICAN > 60; GLUCOSE,RANDOM 187 mg/dL (70-110); MAGNESIUM 1.9 mg/dL (1.7-2.2); POTASSIUM 4.2 mmol/L (3.6-5.0); SODIUM 138 mmol/L (132-148); TOTAL PROTEIN 6.5 g/dL (5.8-8.3)
[2016-11-08 07:32] LABS: TROPONIN I < 0.01 ng/mL
[2016-11-08] MEDS: Insulin Lispro (humaLOG) MEDIUM Coverage SC SCH ×2 (08:12→11:30)
[2016-11-08 08:23] LABS: FREE T4 1.17 ng/dL (0.78-2.19)
[2016-11-08 08:37] LABS: THYROID STIMULATING HORMONE 1.55 mIU/mL (0.46-4.68)
--- NOTE | 2016-11-08 09:09 | PN ---
DATE: 11/08/2016 The patient is chest pain free. PHYSICAL EXAMINATION: VITAL SIGNS: Blood pressure is 134/74, the heart rate is in the 60s. NECK: Negative JVD. LUNGS: Without rales. HEART: Reveals S1, S2. EXTREMITIES: Without edema. LABORATORY DATA: Troponins are negative x 3, glucose is 187. IMPRESSION: 1. Resolution of atypical chest pain. 2. No evidence for acute coronary syndrome. 3. Diabetes mellitus. 4. Hypercholesterolemia. PLAN: Given these findings, we will discontinue telemetry today. We will arrange for an outpatient stress test. From a cardiac perspective, the patient can be discharged. Benjie Lovelace MD cc: [phone] TT: 11/08/2016 09:09:30 Confirmation # [id number] Dictation # [id number] tn
[2016-11-08] MEDS: levoFLOXacin 500 MG TAB PO SCH (09:38)
[2016-11-08] MEDS: Naproxen 550 mg Tab PO SCH (09:39)
[2016-11-08 14:34] VITALS: BP 124/75; PULSE 67; RESP 18; TEMP 98.3
--- NOTE | 2016-11-09 09:08 | DS ---
The patient is a 65-year-old, seen and examined. She states her chest pain is better, but still had some pushing. No nausea, vomiting, no diarrhea, no dizziness. PHYSICAL EXAMINATION: VITAL SIGNS: She is afebrile, pulse 67, respirations 18, blood pressure 124/71. LUNGS: Bilateral fair airflow, no rhonchi or crackle. HEART: S1, S2 audible. ABDOMEN: Soft, nontender, no rebound, no guarding. NEUROLOGIC: The patient is awake and alert, communicative. LABORATORY EXAM: Sodium 138, potassium 4.2, chloride 106, CO2 of 26, BUN 14, creatinine 0.8, blood s ugar of 278. Hemoglobin A1c is 10.9, AST 63, ALT 81, alk phos is 106. ASSESSMENT: 1. Chest pain, noncardiac, probably costochondritis. 2. Seizure disorder. 3. Hypertension. 4. Hyperlipidemia. 5. Non-insulin dependent diabetes. PLAN: The patient is being discharged today. She is given prescription of Naprosyn 500 twice a day. She is going to resume all her medication as prior to admission that includes metformin 500 twice a day, Keppra 750 twice a day, atorvastatin 20 mg daily, and Tegretol 200 twice a day. She will follo w up with her PMD and she will get a stress test as outpatient next week. Kirstin Adhikari MD cc: [phone] TT: 11/09/2016 09:07:42 tn
== END 2016-11-08 17:50 | disposition home or self-care (01) ==
LOC: ED 05:54 → ERH 09:42 → 2RSO 12:34
PROVIDERS: ADMIT Internal Medicine; ATTEND Internal Medicine
DX: R07.89 Other chest pain (principal); N39.0 Urinary tract infection, site not specified; E11.9 Type 2 diabetes mellitus without complications; M15.9 Polyosteoarthritis, unspecified; G40.909 Epilepsy, unspecified, not intractable, without status epilepticus; I10 Essential (primary) hypertension; E78.5 Hyperlipidemia, unspecified; R53.83 Other fatigue; E78.00 Pure hypercholesterolemia, unspecified; Z79.84 Long term (current) use of oral hypoglycemic drugs; Z90.710 Acquired absence of both cervix and uterus; Z90.49 Acquired absence of other specified parts of digestive tract; Z87.891 Personal history of nicotine dependence
CPT/HCPCS: 36415; 71010; 80053; 80061; 81001; 82550; 82948; 83036; 83615; 83735; 83880; 84439; 84443; 84484; 85025; 85378; 87086; 93005; 96365; 99283; G0378; J0696

== ENCOUNTER 2016-12-20 18:53 | Emergency (ER) | payer MEDICARE, OTHER ==
[2016-12-20 18:53] VITALS: BMI 29.2
[2016-12-20 19:04] VITALS: RESP 18; TEMP 98.4
[2016-12-20] MEDS ORDERED: Sodium Chloride 0.9% 1,000 ML IV SCH (19:15)
--- NOTE | 2016-12-20 19:48 | ED PDOC ---
Arrival/HPI - General Chief Complaint: Medical Clearance Time Seen by Provider: 12/20/16 19:11 Historian: Patient - History of Present Illness Narrative History of Present Illness (Text): 12/20/16 19:41 A 66 year old female presents to the emergency department complaining of generalized weakness prior to arrival. Patient reports while food shopping she suddenly felt "weak and tired". Patient denies any fever, chills, nausea, vomiting, diarrhea, abdominal pain, urinary symptoms, chest pain, palpitations, shortness of breath, cough or any other complaints. PMD: Dr. Shea Time/Duration: Prior to Arrival Symptom Course: Unchanged Quality: Other Context: Other Past Medical History - Provider Review Nursing Documentation Reviewed: Yes - Past History Past History: Non-Contributing - Infectious Disease Hx of Infectious Diseases: None - Tetanus Immunization Tetanus Immunization: Unknown - Past Medical History Past Medical History: No Previous - Cardiac Hx Hypertension: Yes - Pulmonary Hx Asthma: Yes - Neurological Hx Seizures: Yes - HEENT Hx HEENT Disorder: No - Renal Hx Renal Disorder: No Hx Kidney Stones: Yes (cystoscopy with stent) Other/Comment: lithotripsy - Endocrine/Metabolic Hx Endocrine Disorders: Yes Hx Diabetes Mellitus Type 2: Yes Other/Comment: niddm - Hematological/Oncological Hx Blood Disorders: Yes Hx Blood Transfusions: No Hx Blood Transfusion Reaction: No Hx Cancer: Yes (colo/rectal in remission) Hx Chemotherapy: Yes (2009 and 2014) Other/Comment: chemo PO - Integumentary Hx Dermatological Disorder: No - Musculoskeletal/Rheumatological Hx Arthritis: Yes - Gastrointestinal Hx Gastrointestinal Disorders: Yes Other/Comment: PELVIC MASS L; colorectal cancer - Genitourinary/Gynecological Hx Genitourinary Disorders: Yes Other/Comment: urinary frequency - Psychiatric Hx Psychophysiologic Disorder: Yes Hx Anxiety: Yes Hx Depression: Yes Hx Emotional Abuse: No Hx Panic Disorder: Yes Hx Physical Abuse: No Hx Substance Use: No - Surgical History Other/Comment: lithotripsy, colon resection 2009, r ovary oopherectomy 2009 - Anesthesia Hx Anesthesia: Yes Hx Anesthesia Reactions: No Hx Malignant Hyperthermia: No - Suicidal Assessment Feels Threatened In Home Enviroment: No Family/Social History - Physician Review Nursing Documentation Reviewed: Yes Family/Social History: No Known Family HX Smoking Status: Former Smoker Hx Alcohol Use: No Hx Substance Use: No Hx Substance Use Treatment: No Allergies/Home Meds Allergies/Adverse Reactions: Allergies No Known Allergies Allergy (Verified 10/23/16 17:52) Home Medications: Home Meds Medication Instructions Recorded Confirmed Simvastatin 20 mg PO DAILY 12/17/14 12/20/16 Capecitabine 500 mg PO BID 04/04/16 12/20/16 Metformin ER [Glucophage XR] 1,000 mg PO BID 07/19/16 12/20/16 Empagliflozin [Jardiance] 1 tab PO BID 11/15/16 12/20/16 Review of Systems - Physician Review All systems were reviewed & negative as marked: Yes - Review of Systems Constitutional: Fatigue (Generalized weakness). absent: Fevers, Night Sweats Respiratory: absent: SOB, Cough Cardiovascular: absent: Chest Pain, Palpitations Gastrointestinal: absent: Abdominal Pain, Diarrhea, Nausea, Vomiting, Appetite Changes Physical Exam Vital Signs Reviewed: Yes Vital Signs Temp Pulse Resp BP Pulse Ox 12/20/16 22:10 66 18 145/67 100 12/20/16 19:03 98.4 F 74 18 131/80 98 Temperature: Afebrile Blood Pressure: Normal Pulse: Regular Respiratory Rate: Normal Appearance: Positive for: Well-Appearing, Non-Toxic, Comfortable Pain Distress: None Mental Status: Positive for: Alert and Oriented X 3 Finger Stick Blood Glucose: 275 - Systems Exam Head: Present: Atraumatic, Normocephalic Pupils: Present: PERRL Extroacular Muscles: Present: EOMI Conjunctiva: Present: Normal Mouth: Present: Moist Mucous Membranes Neck: Present: Normal Range of Motion Respiratory/Chest: Present: Clear to Auscultation, Good Air Exchange. No: Respiratory Distress, Accessory Muscle Use Cardiovascular: Present: Regular Rate and Rhythm, Normal S1, S2. No: Murmurs Abdomen: Present: Tenderness (Chronic left upper quadrant tenderness), Normal Bowel Sounds. No: Distention, Peritoneal Signs Back: Present: Normal Inspection Upper Extremity: Present: Normal Inspection. No: Cyanosis, Edema Lower Extremity: Present: Normal Inspection. No: Edema Neurological: Present: GCS=15, CN II-XII Intact, Speech Normal Skin: Present: Warm, Dry, Normal Color. No: Rashes Psychiatric: Present: Alert, Oriented x 3, Normal Insight, Normal Concentration Medical Decision Making ED Course and Treatment: 12/20/16 19:40 Impression: A 66 year old female with generalized weakness. Patient denies any other complaints. Plan: -- Chest xray -- EKG -- Labs -- Urinalysis -- IV fluids -- Reassess and disposition Prior Visits: Notes and results from previous visits were reviewed. Patient had a stress test and echocardiogram done on 11/15/2016, both showed normal results. Progress Notes: EKG shows sinus bradycardia at 59 BPM with normal axis. Interpreted by me. - Lab Interpretations Lab Results: 12/20/16 19:30 12/20/16 19:30 Lab Results 12/20/16 20:00: Urine Color Light yellow, Urine Appearance Clear, Urine pH 6.0, Ur Specific Diamond 1.010, Urine Protein Negative, Urine Glucose (UA) >=1000, Urine Ketones Negative, Urine Blood Trace-lysed H, Urine Nitrate Negative, Urine Bilirubin Negative, Urine Urobilinogen 0.2, Ur Leukocyte Esterase Negative , Urine RBC 0 - 2, Urine WBC 1 - 3, Ur Epithelial Cells 0 - 2, Urine Bacteria Trace 12/20/16 19:30: TSH 3rd Generation 2.51 12/20/16 19:30: Sodium 136, Potassium 3.7, Chloride 102, Carbon Dioxide 26, Anion Gap 12, BUN 11, Creatinine 0.8, Est GFR ( Amer) > 60, Est GFR (Non- Af Amer) > 60, Random Glucose 262 H, Calcium 8.5, Magnesium 1.8, Total Bilirubin 0.9, AST 99 H, ALT 78 H, Alkaline Phosphatase 113, Lactate Dehydrogenase 694, Total Creatine Kinase 115, Troponin I < 0.01, Total Protein 7.0, Albumin 3.7, Globulin 3.3, Albumin/Globulin Ratio 1.1 12/20/16 19:30: WBC 6.0, RBC 3.96, Hgb 13.5, Hct 38.6, MCV 97.5, MCH 34.1, MCHC 35.0, RDW 14.0, Plt Count 104 L, MPV 10.5, Gran % 47.6 L, Lymph % (Auto) 41.0 H , [place] % (Auto) 8.6 H, Eos % (Auto) 2.5, Baso % (Auto) 0.3, Gran # 2.83, Lymph # 2.4, [place] # 0.5, Eos # 0.2, Baso # 0.02 - RAD Interpretation Radiology Orders: 12/20/16 19:12 CHEST PORTABLE [RAD] Stat - Medication Orders Current Medication Orders: Discontinued Medications Sodium Chloride (Sodium Chloride 0.9%) 1,000 mls @ 125 mls/hr IV .Q8H RASHEEDA Last Admin: 12/20/16 19:53 Dose: 125 mls/hr - Scribe Statement The provider has reviewed the documentation as recorded by the Scribe Farrah Mixon Provider Scribe Attestation: All medical record entries made by the Scribe were at my direction and personally dictated by me. I have reviewed the chart and agree that the record accurately reflects my personal performance of the history, physical exam, medical decision making, and the department course for this patient. I have also personally directed, reviewed, and agree with the discharge instructions and disposition. Disposition/Present on Arrival - Present on Arrival Any Indicators Present on Arrival: No History of DVT/PE: No History of Uncontrolled Diabetes: No Urinary Catheter: No History of Decub. Ulcer: No History Surgical Site Infection Following: None - Disposition Have Diagnosis and Disposition been Completed?: Yes Diagnosis: Episode of generalized weakness Disposition: HOME/ ROUTINE Disposition Time: 21:00 Condition: IMPROVED Discharge Instructions (ExitCare): Weakness (ED) Additional Instructions: Thank you for letting us take care of you today. Your provider was Dr. Diaz. You were treated for generalized weakness. The emergency medical care you received today was directed at your acute symptoms. If you were prescribed any medication, please fill it and take as directed. It may take several days for your symptoms to resolve. Return to the Emergency Department if your symptoms worsen, do not improve, or if you have any other problems. Please contact your doctor or call one of the physicians/clinics you have been referred to that are listed on the Patient Visit Information form that is included in your discharge packet. Bring any paperwork you were given at discharge with you along with any medications you are taking to your follow up visit. Our treatment cannot replace ongoing medical care by a primary care provider (PCP) outside of the emergency department. Thank you for allowing the [facility] team to be part of your care today. Follow up with your doctor in 2-3 days for re-evaluation. Referrals: Lane Shea MD [Primary Care Provider] - Follow up with primary
[2016-12-20 20:06] LABS: BASO # 0.02 K/mm3 (0.0-2.0); BASO % 0.3 % (0.0-3.0); EOS # 0.2 (0.0-0.7); EOS % 2.5 % (1.5-5.0); GRAN # 2.83 (1.4-6.5); GRAN % 47.6 % (50.0-68.0); HEMOGLOBIN 13.5 gm/dL (12.0-16.0); LYMPH # 2.4 (1.2-3.4); MEAN CELL VOLUME 97.5 fL (80.0-105.0); MEAN CORPUSCULAR HEMOGLOBIN 34.1 pg (25.0-35.0); MEAN PLATELET VOLUME 10.5 fl (7.0-11.0); MONO # 0.5 (0.1-0.6); MONO % 8.6 % (1.0-6.0); PLATELET COUNT 104 10^3/uL (120.0-450.0); RBC 3.96 10^6/uL (3.5-6.1)
[2016-12-20 20:14] LABS: URINE BILIRUBIN NEGATIVE (NEGATIVE); URINE BLOOD TRACE-LYSED (NEGATIVE); URINE GLUCOSE (UA) >=1000 mg/dL (NEGATIVE); URINE LEUKOCYTE ESTERASE NEGATIVE Leu/uL (NEGATIVE); URINE NITRATE NEGATIVE (NEGATIVE); URINE PROTEIN NEGATIVE mg/dL (<30 mg/dL); URINE UROBILINOGEN 0.2 E.U./dL (<1 E.U./dL)
[2016-12-20 20:16] LABS: URINE APPEARANCE CLEAR (CLEAR); URINE COLOR LIGHT YELLOW (YELLOW)
[2016-12-20 20:16] LABS: ALB/GLOB RATIO 1.1 (1.1-1.8); ALBUMIN 3.7 g/dL (3.0-4.8); ALT/SGPT 78 U/L (7-56); AST/SGOT 99 U/L (15-39); BLOOD UREA NITROGEN 11 mg/dL (7-21); CALCIUM 8.5 mg/dL (8.4-10.5); GFR AFRICAN-AMERICAN > 60; GFR NON-AFRICAN AMERICAN > 60; MAGNESIUM 1.8 mg/dL (1.7-2.2)
[2016-12-20 20:34] LABS: TROPONIN I < 0.01 ng/mL
[2016-12-20 20:51] LABS: URINE BACTERIA TRACE (NEG); URINE EPITHELIAL CELLS 0 - 2 /hpf (0-5); URINE RBC 0 - 2 /hpf (0-2)
[2016-12-20 22:33] VITALS: BP 145/67; PULSE 66; O2SAT 100
--- NOTE | 2016-12-21 08:39 | RAD ---
HISTORY: r/o infiltrate COMPARISON: Comparison is made to the previous study dated 11/07/2016 FINDINGS: LUNGS: No active pulmonary disease. PLEURA: No significant pleural effusion identified, no pneumothorax apparent. CARDIOVASCULAR: Normal. OSSEOUS STRUCTURES: No significant abnormalities. VISUALIZED UPPER ABDOMEN: Normal. OTHER FINDINGS: Right-sided PICC line is again seen in place with the tip is likely at that distal SVC IMPRESSION: No active disease. No significant interval change since the previous exam noted.
--- NOTE | 2016-12-21 10:36 | CARD ---
APPROVED REPORT EKG Measurement Heart [id number] 124P-3 [id number] <Conclusion> Sinus bradycardia with sinus arrhythmia Moderate voltage criteria for LVH, may be normal variant
== END 2016-12-20 22:10 | disposition home or self-care (01) ==
LOC: ED 18:53
DX: R53.1 Weakness (principal); I10 Essential (primary) hypertension; E11.9 Type 2 diabetes mellitus without complications; Z87.891 Personal history of nicotine dependence
CPT/HCPCS: 71010; 80053; 81001; 82550; 82948; 83615; 83735; 84443; 84484; 85025; 93005; 99282; J7040

== ENCOUNTER 2017-02-01 12:40 | Emergency (ER) | payer MEDICARE, OTHER ==
[2017-02-01 12:45] VITALS: BMI 28.7
[2017-02-01 12:50] VITALS: TEMP 98.1
[2017-02-01] MEDS ORDERED: Morphine 2 mg/ml ISec IM STA (13:20)
--- NOTE | 2017-02-01 13:20 | ED PDOC ---
Arrival/HPI - General Chief Complaint: Trauma Time Seen by Provider: 02/01/17 13:12 Historian: Patient - History of Present Illness Narrative History of Present Illness (Text): 02/01/17 13:15 66 y/o female, pmh including dm, nkda, not on any anticoaugulant/antiplatete, no head or neck injury, c/o rt. knee and ankle pain s/p twisting and fall on the rt. knee today at home x 2 hours. Pt. walk to the ER, complaining about the rt. ankle and knee pain, no numbness or tinging, no hip or pelvic pain, no hematuria, no night sweat, no dizziness, no rash, no other medical or psychological complaints. Past Medical History - Provider Review Nursing Documentation Reviewed: Yes - Past History Past History: Non-Contributing - Infectious Disease Hx of Infectious Diseases: None - Tetanus Immunization Tetanus Immunization: Unknown - Past Medical History Past Medical History: No Previous - Cardiac Hx Hypertension: Yes - Pulmonary Hx Asthma: Yes - Neurological Hx Seizures: Yes - HEENT Hx HEENT Disorder: No - Renal Hx Renal Disorder: No Hx Kidney Stones: Yes (cystoscopy with stent) Other/Comment: lithotripsy - Endocrine/Metabolic Hx Endocrine Disorders: Yes Hx Diabetes Mellitus Type 2: Yes Other/Comment: niddm - Hematological/Oncological Hx Blood Disorders: Yes Hx Blood Transfusions: No Hx Blood Transfusion Reaction: No Hx Cancer: Yes (colo/rectal in remission) Hx Chemotherapy: Yes (2009 and 2014) Other/Comment: chemo PO - Integumentary Hx Dermatological Disorder: No - Musculoskeletal/Rheumatological Hx Arthritis: Yes - Gastrointestinal Hx Gastrointestinal Disorders: Yes Other/Comment: PELVIC MASS L; colorectal cancer - Genitourinary/Gynecological Hx Genitourinary Disorders: Yes Other/Comment: urinary frequency - Psychiatric Hx Psychophysiologic Disorder: Yes Hx Anxiety: Yes Hx Depression: Yes Hx Emotional Abuse: No Hx Panic Disorder: Yes Hx Physical Abuse: No Hx Substance Use: No - Surgical History Other/Comment: lithotripsy, colon resection 2009, r ovary oopherectomy 2009 - Anesthesia Hx Anesthesia: Yes Hx Anesthesia Reactions: No Hx Malignant Hyperthermia: No - Suicidal Assessment Feels Threatened In Home Enviroment: No Family/Social History - Physician Review Nursing Documentation Reviewed: Yes Family/Social History: Unknown Family HX Smoking Status: Former Smoker Hx Alcohol Use: No Hx Substance Use: No Hx Substance Use Treatment: No Allergies/Home Meds Allergies/Adverse Reactions: Allergies No Known Allergies Allergy (Verified 10/23/16 17:52) Home Medications: Home Meds Medication Instructions Recorded Confirmed Simvastatin 20 mg PO DAILY 12/17/14 02/01/17 RX: Capecitabine 500 mg PO BID 04/04/16 02/01/17 Metformin ER [Glucophage XR] 1,000 mg PO BID 07/19/16 02/01/17 Empagliflozin [Jardiance] 1 tab PO BID 11/15/16 02/01/17 Review of Systems - Review of Systems Constitutional: absent: Fatigue, Fevers Eyes: absent: Vision Changes ENT: absent: Hearing Changes Respiratory: absent: SOB, Cough Cardiovascular: absent: Chest Pain Gastrointestinal: absent: Abdominal Pain, Diarrhea, Nausea, Vomiting Musculoskeletal: Arthralgias, Myalgias. absent: Back Pain, Neck Pain, Joint Swelling Skin: absent: Rash, Pruritis, Skin Lesions Neurological: absent: Headache, Dizziness Physical Exam Vital Signs Reviewed: Yes Vital Signs Temp Pulse Resp BP Pulse Ox 02/01/17 13:52 65 18 127/75 99 02/01/17 12:48 98.1 F 70 18 125/69 98 Temperature: Afebrile Blood Pressure: Normal Pulse: Regular Respiratory Rate: Normal Appearance: Positive for: Well-Appearing, Non-Toxic Pain Distress: Severe Mental Status: Positive for: Alert and Oriented X 3 - Systems Exam Head: Present: Atraumatic, Normocephalic Pupils: Present: PERRL Extroacular Muscles: Present: EOMI Conjunctiva: Present: Normal Mouth: Present: Moist Mucous Membranes Neck: Present: Normal Range of Motion Respiratory/Chest: Present: Clear to Auscultation, Good Air Exchange. No: Respiratory Distress, Accessory Muscle Use Cardiovascular: Present: Regular Rate and Rhythm, Normal S1, S2. No: Murmurs Abdomen: Present: Normal Bowel Sounds. No: Tenderness, Distention, Peritoneal Signs Back: Present: Normal Inspection Upper Extremity: Present: Normal Inspection. No: Cyanosis, Edema Lower Extremity: Present: Normal Inspection, Other (RLE: +ttp on the medial aspect of the knee and lateral aspect of the ankle, negative jian and weber signs, skin intact, no laceration or abrasion, FROM without limitation , sensation intact, motor 5/5, +DPPT pulses, capillary refill< 2 seconds, neurovascular intact. ). No: Edema Neurological: Present: GCS=15, Speech Normal, Motor Func Grossly Intact, Gait Normal, Memory Normal Skin: Present: Warm, Dry, Normal Color. No: Rashes Psychiatric: Present: Alert, Oriented x 3, Normal Insight, Normal Concentration Medical Decision Making ED Course and Treatment: 02/01/17 13:23 -morphine 2mg IM -xrays -observe and reassess 02/01/17 14:11 -pain decreased. -xrays show no fracture or dislocation, josey wrap applied for supportive treatment. -Discharge home with naproxen, josey wrap, crutches, ice compression, follow up with your own pmd and orthopedic within 2 days, return to the ER for any new or worsening signs or symptoms. - RAD Interpretation Radiology Orders: 02/01/17 13:19 ANKLE RIGHT 3 VIEWS ROUTINE [RAD] Stat KNEE W PATELLA RIGHT 3 VIEW [RAD] Stat Rt. knee: IMPRESSION: Normal radiographs of the right knee. Rt. ankle: IMPRESSION: Normal right ankle radiographs. 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 Disposition/Present on Arrival - Present on Arrival Any Indicators Present on Arrival: No History of DVT/PE: No History of Uncontrolled Diabetes: No Urinary Catheter: No History of Decub. Ulcer: No History Surgical Site Infection Following: None - Disposition Have Diagnosis and Disposition been Completed?: Yes Diagnosis: Accidental fall, Ankle injury, Knee injury Disposition: HOME/ ROUTINE Disposition Time: 13:24 Patient Plan: Discharge Patient Problems: Current Active Problems Problem Status Onset Accidental fall Acute Condition: GOOD Additional Instructions: Discharge home with naproxen, josey wrap, crutches, ice compression, follow up with your own pmd and orthopedic within 2 days, return to the ER for any new or worsening signs or symptoms. Prescriptions: RX: Naproxen 500 mg PO BID PRN #20 tab PRN Reason: Other Referrals: Lane Shea MD [Primary Care Provider] - Follow up with primary Tarun Dawson MD [Staff Provider] - Follow up with primary Forms: frintit (Mauritanian), WORK NOTE
[2017-02-01 13:53] VITALS: O2SAT 99
--- NOTE | 2017-02-01 14:07 | RAD ---
PROCEDURE: Right Knee Radiographs. HISTORY: rt. knee injury and pain COMPARISON: None. FINDINGS: BONES: Normal. No fracture. JOINTS: Normal. No osteoarthritis. JOINT EFFUSION: None. OTHER FINDINGS: None. IMPRESSION: Normal radiographs of the right knee.
--- NOTE | 2017-02-01 14:10 | RAD ---
PROCEDURE: Right Ankle Radiographs. HISTORY: rt. ankle injury and pain COMPARISON: None FINDINGS: BONES: Normal. No fracture. JOINTS: Normal. No osteoarthritis. Ankle mortise maintained. Talar dome intact SOFT TISSUES: Normal. OTHER FINDINGS: None. IMPRESSION: Normal right ankle radiographs.
[2017-02-01 14:25] VITALS: BP 128/78; PULSE 68; RESP 16
== END 2017-02-01 14:40 | disposition home or self-care (01) ==
LOC: ED 12:40
DX: S99.911A Unspecified injury of right ankle, initial encounter (principal); S89.91XA Unspecified injury of right lower leg, initial encounter; W19.XXXA Unspecified fall, initial encounter; Y92.009 Unspecified place in unspecified non-institutional (private) residence as the place of occurrence of the external cause
CPT/HCPCS: 73562; 73610; 96372; 99285; J2270

== ENCOUNTER 2017-02-10 15:50 | Emergency (ER) | payer MEDICARE, OTHER ==
[2017-02-10 15:50] VITALS: BMI 28.7
[2017-02-10 16:09] VITALS: BP 111/68; PULSE 67; RESP 16; TEMP 97.9; O2SAT 98
[2017-02-10] MEDS ORDERED: Oxycodone/Acetaminophen 5/325 mg Tab PO STA (16:34)
--- NOTE | 2017-02-10 16:34 | ED PDOC ---
Arrival/HPI - General Chief Complaint: Trauma Time Seen by Provider: 02/10/17 16:28 Historian: Patient - History of Present Illness Narrative History of Present Illness (Text): 02/10/17 16:29 66 y/o female, pmh including dm/hyperlipidemia/dvt, nkda, not on any blood thinner or anticoagulant, c/o mid back pain started today with no fall or trauma. aching pain, aggravated by movement, on and off, no chest pain or shortness of breath, no night sweat, no flank pain, no recent fall or trauma for the past 4 weeks as per patient (pt. disagree to the triage), no chest pain or shortness of breath, no other medical or psychological complaints. Past Medical History - Provider Review Nursing Documentation Reviewed: Yes - Past History Past History: Non-Contributing - Infectious Disease Hx of Infectious Diseases: None - Tetanus Immunization Tetanus Immunization: Unknown - Past Medical History Past Medical History: No Previous - Cardiac Hx Hypertension: Yes - Pulmonary Hx Asthma: Yes - Neurological Hx Seizures: Yes - HEENT Hx HEENT Disorder: No - Renal Hx Renal Disorder: No Hx Kidney Stones: Yes (cystoscopy with stent) Other/Comment: lithotripsy - Endocrine/Metabolic Hx Endocrine Disorders: Yes Hx Diabetes Mellitus Type 2: Yes Other/Comment: niddm - Hematological/Oncological Hx Blood Disorders: Yes Hx Blood Transfusions: No Hx Blood Transfusion Reaction: No Hx Cancer: Yes (colo/rectal in remission/ovarian) Hx Chemotherapy: Yes (2009 and 2014) Other/Comment: chemo PO - Integumentary Hx Dermatological Disorder: No - Musculoskeletal/Rheumatological Hx Arthritis: Yes - Gastrointestinal Hx Gastrointestinal Disorders: Yes Other/Comment: PELVIC MASS L; colorectal cancer - Genitourinary/Gynecological Hx Genitourinary Disorders: Yes Other/Comment: urinary frequency - Psychiatric Hx Psychophysiologic Disorder: Yes Hx Anxiety: Yes Hx Depression: Yes Hx Emotional Abuse: No Hx Panic Disorder: Yes Hx Physical Abuse: No Hx Substance Use: No - Surgical History Other/Comment: lithotripsy, colon resection 2009, r ovary oopherectomy 2009 - Anesthesia Hx Anesthesia: Yes Hx Anesthesia Reactions: No Hx Malignant Hyperthermia: No - Suicidal Assessment Feels Threatened In Home Enviroment: No Family/Social History - Physician Review Nursing Documentation Reviewed: Yes Family/Social History: Unknown Family HX Smoking Status: Former Smoker Hx Alcohol Use: No Hx Substance Use: No Hx Substance Use Treatment: No Allergies/Home Meds Allergies/Adverse Reactions: Allergies No Known Allergies Allergy (Verified 02/10/17 16:09) Home Medications: Home Meds Medication Instructions Recorded Confirmed Simvastatin 20 mg PO DAILY 12/17/14 02/01/17 Capecitabine 500 mg PO BID 04/04/16 02/01/17 Metformin ER [Glucophage XR] 1,000 mg PO BID 07/19/16 02/01/17 Empagliflozin [Jardiance] 1 tab PO BID 11/15/16 02/01/17 Review of Systems - Review of Systems Constitutional: absent: Fatigue, Fevers Eyes: absent: Vision Changes ENT: absent: Hearing Changes Respiratory: absent: SOB, Cough Cardiovascular: absent: Chest Pain Gastrointestinal: absent: Abdominal Pain, Nausea, Vomiting Musculoskeletal: Back Pain Skin: absent: Rash, Pruritis Hemo/Lymphatic: absent: Adenopathy, Easy Bleeding Physical Exam Vital Signs Reviewed: Yes Vital Signs Temp Pulse Resp BP Pulse Ox 02/10/17 16:06 97.9 F 67 16 111/68 98 Temperature: Afebrile Blood Pressure: Normal Pulse: Regular Respiratory Rate: Normal Appearance: Positive for: Well-Appearing, Non-Toxic Pain Distress: Severe Mental Status: Positive for: Alert and Oriented X 3 - Systems Exam Head: Present: Atraumatic, Normocephalic Pupils: Present: PERRL Extroacular Muscles: Present: EOMI Conjunctiva: Present: Normal Mouth: Present: Moist Mucous Membranes Neck: Present: Normal Range of Motion Respiratory/Chest: Present: Clear to Auscultation, Good Air Exchange. No: Respiratory Distress, Accessory Muscle Use Cardiovascular: Present: Regular Rate and Rhythm, Normal S1, S2. No: Murmurs Abdomen: Present: Normal Bowel Sounds. No: Tenderness, Distention, Peritoneal Signs Back: Present: Normal Inspection, Paraspinal Tenderness, Other (Thoracic to LS spine: +ttp on the rt. paraspinal of the lower thoracic region, no midline tenderness or step off, no LS spine tenderness or step off, FROM without limitation, sensation intact, motor 5/5, no focal neurological deficits. ). No : CVA Tenderness, Midline Tenderness, Pain with Leg Raise, Decubitus Ulcer Upper Extremity: Present: Normal Inspection. No: Cyanosis, Edema Lower Extremity: Present: Normal Inspection. No: Edema Neurological: Present: GCS=15, CN II-XII Intact, Speech Normal Skin: Present: Warm, Dry, Normal Color. No: Rashes Psychiatric: Present: Alert, Oriented x 3, Normal Insight, Normal Concentration Medical Decision Making ED Course and Treatment: 02/10/17 16:39 -ua -xray -percocet -observe and reassess 02/10/17 18:10 -UA show no UTI -Xray show degenerative changes noted, no acute fracture or subluxation -Pain decreased and feels much better, will discharge home -Discharge home with mobic, lidoderm, heat compression, bed rest, follow up with your own pmd within 2 days, return to the ER for any new or worsening signs or symptoms. - Lab Interpretations Lab Results: Lab Results 02/10/17 17:30: Urine Color Yellow, Urine Appearance Clear, Urine pH 6.0, Ur Specific [place] 1.020, Urine Protein Negative, Urine Glucose (UA) >=1000, Urine Ketones Negative, Urine Blood Negative, Urine Nitrate Negative, Urine Bilirubin Negative, Urine Urobilinogen 0.2, Ur Leukocyte Esterase Negative I have reviewed the lab results: Yes Interpretation: No clinic. lab abnormalty - RAD Interpretation Radiology Orders: 02/10/17 16:34 DORSAL (THORACIC) SPINE [RAD] Stat no acute fracture, multilevel of degenerative disease - Medication Orders Current Medication Orders: Discontinued Medications Oxycodone/Acetaminophen (Percocet 5/325 Mg Tab) 1 tab PO STAT STA Stop: 02/10/17 16:35 Last Admin: 02/10/17 16:54 Dose: 1 tab Re-Assess: ERIKA Pain Assessment Document 02/10/17 17:54 [facility] (Rec: 02/10/17 18:50 [facility] [id number]) Pain Reassessment Is this a pain reassessment? Yes Sleep Is patient sleeping during reassessment? No Presence of Pain Presence of Pain No - PA / SHORE WORKER / Resident Statement MD/DO has reviewed & agrees with the documentation as recorded. Disposition/Present on Arrival - Present on Arrival Any Indicators Present on Arrival: No History of DVT/PE: No History of Uncontrolled Diabetes: No Urinary Catheter: No History of Decub. Ulcer: No History Surgical Site Infection Following: None - Disposition Have Diagnosis and Disposition been Completed?: Yes Diagnosis: Back pain, Osteoarthritis Disposition: HOME/ ROUTINE Disposition Time: 18:12 Patient Plan: Discharge Condition: IMPROVED Additional Instructions: -Discharge home with mobic, lidoderm, heat compression, bed rest, follow up with your own pmd within 2 days, return to the ER for any new or worsening signs or symptoms. Prescriptions: Lidocaine 5% [Lidoderm] 1 patch TOP DAILY PRN #14 patch PRN Reason: Other Meloxicam [Mobic] 15 mg PO DAILY PRN #14 tab PRN Reason: Other Referrals: Lane Shea MD [Primary Care Provider] - Follow up with primary Forms: [facility] ([place]istani), WORK NOTE
[2017-02-10 17:45] LABS: URINE BILIRUBIN NEGATIVE (NEGATIVE); URINE BLOOD NEGATIVE (NEGATIVE); URINE GLUCOSE (UA) >=1000 mg/dL (NEGATIVE); URINE KETONE NEGATIVE (NEGATIVE); URINE LEUKOCYTE ESTERASE NEGATIVE Leu/uL (NEGATIVE); URINE PROTEIN NEGATIVE mg/dL (<30 mg/dL); URINE UROBILINOGEN 0.2 E.U./dL (<1 E.U./dL)
[2017-02-10 17:47] LABS: URINE APPEARANCE CLEAR (CLEAR); URINE COLOR YELLOW (YELLOW)
--- NOTE | 2017-02-11 08:10 | RAD ---
HISTORY: Lower thoracic pain x 1 day, on and off COMPARISON: No prior. FINDINGS: BONES: There is normal alignment of the thoracic vertebral bodies. Thoracic kyphosis is maintained. Vertebral bodies are normal in height. There is no acute fracture or bone destruction. DISC SPACES: There is mild multilevel degenerative disc disease with anterior osteophytes and reduced disc heights. SOFT TISSUES: Normal. OTHER FINDINGS: None. IMPRESSION: No acute fracture. Mild multilevel degenerative disc disease.
== END 2017-02-10 18:53 | disposition home or self-care (01) ==
LOC: ED 15:50
DX: M47.894 Other spondylosis, thoracic region (principal); M54.9 Dorsalgia, unspecified

== ENCOUNTER 2017-03-27 12:48 | Emergency (ER) | payer MEDICARE, OTHER ==
[2017-03-27 12:49] VITALS: BMI 28.7
[2017-03-27 13:00] VITALS: TEMP 97.6
--- NOTE | 2017-03-27 13:05 | ED PDOC ---
Arrival/HPI - General Time Seen by Provider: 03/27/17 12:52 Historian: Patient - History of Present Illness Narrative History of Present Illness (Text): 03/27/17 13:02 A 66 year old female, whose past medical history includes colon cancer in 2009 and ovarian cancer in 2014, both in remission, HTN, and DM presents to the emergency department complaining of intermittent midsternal chest pain since yesterday. Patient notes radiating pain towards left shoulder and back and mild nausea. She says the pain is worse with movement and deep breath. Patient denies any fever, chills, vomiting, abdominal pain, urinary symptoms, shortness of breath, cough, lower extremity swelling, headache, dizziness or any other complaints. Time/Duration: Other (Yesterday) Symptom Course: Intermittent Quality: Other Context: Home Past Medical History - Provider Review Nursing Documentation Reviewed: Yes - Past History Past History: Non-Contributing - Infectious Disease Hx of Infectious Diseases: None - Tetanus Immunization Tetanus Immunization: Unknown - Past Medical History Past Medical History: No Previous - Cardiac Hx Hypertension: Yes - Pulmonary Hx Asthma: Yes - Neurological Hx Seizures: Yes - HEENT Hx HEENT Disorder: No - Renal Hx Renal Disorder: No Hx Kidney Stones: Yes (cystoscopy with stent) Other/Comment: lithotripsy - Endocrine/Metabolic Hx Endocrine Disorders: Yes Hx Diabetes Mellitus Type 2: Yes Other/Comment: niddm - Hematological/Oncological Hx Blood Disorders: Yes Hx Blood Transfusions: No Hx Blood Transfusion Reaction: No Hx Cancer: Yes (colo/rectal in remission/ovarian) Hx Chemotherapy: Yes (2009 and 2014) Other/Comment: chemo PO - Integumentary Hx Dermatological Disorder: No - Musculoskeletal/Rheumatological Hx Arthritis: Yes - Gastrointestinal Hx Gastrointestinal Disorders: Yes Other/Comment: PELVIC MASS L; colorectal cancer - Genitourinary/Gynecological Hx Genitourinary Disorders: Yes Other/Comment: urinary frequency - Psychiatric Hx Psychophysiologic Disorder: Yes Hx Anxiety: Yes Hx Depression: Yes Hx Emotional Abuse: No Hx Panic Disorder: Yes Hx Physical Abuse: No Hx Substance Use: No - Surgical History Other/Comment: lithotripsy, colon resection 2009, r ovary oopherectomy 2009 - Anesthesia Hx Anesthesia: Yes Hx Anesthesia Reactions: No Hx Malignant Hyperthermia: No - Suicidal Assessment Feels Threatened In Home Enviroment: No Family/Social History - Physician Review Nursing Documentation Reviewed: Yes Family/Social History: No Known Family HX Smoking Status: Former Smoker Hx Alcohol Use: No Hx Substance Use: No Hx Substance Use Treatment: No Allergies/Home Meds Allergies/Adverse Reactions: Allergies No Known Allergies Allergy (Verified 02/10/17 16:09) Home Medications: Home Meds Medication Instructions Recorded Confirmed Simvastatin 20 mg PO DAILY 12/17/14 03/27/17 Capecitabine 500 mg PO BID 04/04/16 03/27/17 Metformin ER [Glucophage XR] 1,000 mg PO BID 07/19/16 03/27/17 Empagliflozin [Jardiance] 1 tab PO BID 11/15/16 03/27/17 Review of Systems - Physician Review All systems were reviewed & negative as marked: Yes - Review of Systems Constitutional: absent: Fevers, Night Sweats Respiratory: absent: SOB, Cough Cardiovascular: Chest Pain (midternal pain radiating to left shoulder and back) Gastrointestinal: Nausea. absent: Abdominal Pain, Vomiting Genitourinary Female: absent: Dysuria, Frequency, Hematuria Neurological: absent: Headache, Dizziness Physical Exam Vital Signs Reviewed: Yes Vital Signs Temp Pulse Resp BP Pulse Ox 03/27/17 12:59 97.6 F 64 18 140/79 97 03/27/17 12:49 69 18 140/79 98 Temperature: Afebrile Blood Pressure: Normal Pulse: Regular Respiratory Rate: Normal Appearance: Positive for: Well-Appearing, Non-Toxic, Comfortable Pain Distress: None Mental Status: Positive for: Alert and Oriented X 3 - Systems Exam Head: Present: Atraumatic, Normocephalic Pupils: Present: PERRL Conjunctiva: Present: Normal Mouth: Present: Moist Mucous Membranes Pharnyx: No: ERYTHEMA, EXUDATE, TONSILS ENLARGED Neck: Present: Normal Range of Motion Respiratory/Chest: Present: Clear to Auscultation, Good Air Exchange, Tender to Palpation (reproducible chest pain with palpation). No: Respiratory Distress, Accessory Muscle Use Cardiovascular: Present: Regular Rate and Rhythm, Normal S1, S2. No: Murmurs Abdomen: Present: Normal Bowel Sounds. No: Tenderness, Distention, Peritoneal Signs Back: Present: Normal Inspection Upper Extremity: Present: Normal Inspection. No: Cyanosis, Edema Lower Extremity: Present: Normal Inspection. No: Edema Neurological: Present: GCS=15, CN II-XII Intact, Speech Normal Skin: Present: Warm, Dry, Normal Color. No: Rashes Psychiatric: Present: Alert, Oriented x 3, Normal Insight, Normal Concentration Medical Decision Making ED Course and Treatment: 03/27/17 13:02 Impression: A 66 year old female with midsternal chest pain radiating to left shoulder and back. patient notes mild nausea. Plan: -- Chest CT -- Chest xray -- EKG -- Labs -- Urinalysis -- Pepcid -- Reassess and disposition Progress Notes: Report Date : 03/27/2017 15:26:05 PROCEDURE: CHEST RADIOGRAPH, 1 VIEW Dictator : Pawel Khan MD IMPRESSION: No active disease. Report Date : 03/27/2017 15:59:12 Procedure: Chest CT Dictator : Alina Lares IMPRESSION: No dissecting aneurysm. No thoracic or abdominal aortic aneurysm. . Atherosclerotic vascular calcifications are noted. Few coronary artery calcifications are also apparent No pulmonary emboli noted 03/27/17 16:26 Patient with noted history with atypical reproducible chest pain associated with nausea. EKG is normal with normal vitals, and patient had a normal stress test and echo just about 3 months ago. Labs, except for elevated glucose, are unremarkable here in the ED with normal CE. CTA was done showing no dissection or PE; a 6mm renal stone was noted but no hydro, and patient was made aware. Patient feeling better with zofran and famotidine. Given normal CE and normal EKG in the setting of atypical symptoms with recent negative stress and echo and patient saying she can see pmd this week, no indication is present to admit to the hospital - will d/c and have her f/u pmd. - Lab Interpretations Lab Results: 03/27/17 13:30 03/27/17 13:03 Lab Results 03/27/17 14:10: POC Glucose (mg/dL) 463 H* 03/27/17 13:45: PT 12.4 H, INR 1.15 H, APTT 26.8, D-Dimer, Quantitative 0.29 03/27/17 13:30: WBC 5.9, RBC 4.17, Hgb 14.1, Hct 40.2, MCV 96.4, MCH 33.8, MCHC 35.1, RDW 14.0, Plt Count 103 L, MPV 10.5, Gran % 50.7, Lymph % (Auto) 39.0 H, [place] % (Auto) 6.9 H, Eos % (Auto) 2.9, Baso % (Auto) 0.5, Gran # 3.00, Lymph # 2.3, [place] # 0.4, Eos # 0.2, Baso # 0.03 03/27/17 13:05: Urine Color Yellow, Urine Appearance Slight-cloudy, Urine pH 6.0 , Ur Specific [place] 1.020, Urine Protein Trace H, Urine Glucose (UA) >=1000, Urine Ketones Negative, Urine Blood Negative, Urine Nitrate Negative, Urine Bilirubin Negative, Urine Urobilinogen 0.2, Ur Leukocyte Esterase Negative, Urine RBC 0 - 2, Urine WBC 2 - 5, Ur Epithelial Cells 6 - 8, Urine Bacteria Mod 03/27/17 13:03: Sodium 134, Potassium 4.0, Chloride 99, Carbon Dioxide 25, Anion Gap 14, BUN 13, Creatinine 0.8, Est GFR ( Amer) > 60, Est GFR (Non- Af Amer) > 60, Random Glucose 449 H* D, Calcium 8.7, Magnesium 1.7, Total Bilirubin 1.1, AST 122 H, ALT 99 H, Alkaline Phosphatase 132 H, Lactate Dehydrogenase 570, Total Creatine Kinase 46, Troponin I < 0.01, Total Protein 6.5, Albumin 3.6, Globulin 2.9, Albumin/Globulin Ratio 1.2, Lipase 128 - RAD Interpretation Radiology Orders: 03/27/17 13:03 ANGIOGRAPHY DISECTION PROTOCOL [CT] Stat 03/27/17 13:04 CHEST ONE VIEW [RAD] Stat - EKG Interpretation EKG Interpretation (Text): 03/27/17 16:47 NSR @ 65; normal intervals; normal axis; no ST/T changes Interpreted by ED Physician: Yes Type: 12 lead EKG - Medication Orders Current Medication Orders: Discontinued Medications Famotidine (Pepcid) 20 mg IVP STAT STA Stop: 03/27/17 13:04 Last Admin: 03/27/17 13:35 Dose: 20 mg IVP Administration Document 03/27/17 13:35 MR (Rec: 03/27/17 13:35 MR [id number]) Charges for Administration # of IVP Administrations 1 Sodium Chloride (Sodium Chloride 0.9%) 1,000 mls @ 999 mls/hr IV .Q1H1M STA Stop: 03/27/17 14:54 Last Admin: 03/27/17 14:16 Dose: 999 mls/hr eMAR Start Stop Document 03/27/17 14:16 MR (Rec: 03/27/17 14:16 MR [id number]) Intravenous Solution Start Date 03/27/17 Start Time 14:16 End Date 03/27/17 End time 15:16 Total Infusion Time 60 Insulin Human Regular (Humulin R) 8 units IVP ONCE STA Stop: 03/27/17 13:55 Last Admin: 03/27/17 14:15 Dose: 8 units MAR Blood Glucose Document 03/27/17 14:15 MR (Rec: 03/27/17 14:16 MR [id number]) Blood Glucose Finger Stick Blood Glucose (70-120) 463 IVP Administration Document 03/27/17 14:15 MR (Rec: 03/27/17 14:16 MR [id number]) Charges for Administration # of IVP Administrations 1 Ondansetron HCl (Zofran Inj) 4 mg IVP STAT STA Stop: 03/27/17 13:55 Last Admin: 03/27/17 14:15 Dose: 4 mg IVP Administration Document 03/27/17 14:15 MR (Rec: 03/27/17 14:15 MR [id number]) Charges for Administration # of IVP Administrations 1 - Scribe Statement The provider has reviewed the documentation as recorded by the Claudia Mixon Provider Scribe Attestation: All medical record entries made by the Scribe were at my direction and personally dictated by me. I have reviewed the chart and agree that the record accurately reflects my personal performance of the history, physical exam, medical decision making, and the department course for this patient. I have also personally directed, reviewed, and agree with the discharge instructions and disposition. Disposition/Present on Arrival - Present on Arrival Any Indicators Present on Arrival: No History of DVT/PE: No History of Uncontrolled Diabetes: No Urinary Catheter: No History Surgical Site Infection Following: None - Disposition Have Diagnosis and Disposition been Completed?: Yes Diagnosis: Poorly controlled diabetes mellitus, Atypical chest pain Disposition: HOME/ ROUTINE Disposition Time: 16:50 Patient Plan: Discharge Condition: GOOD Discharge Instructions (ExitCare): Chest Pain (ED) Additional Instructions: Drink plenty of fluids. Tylenol for pain. Follow up with Dr. Shea in 1-2 days. Return to the emergency department if any new concerning symptoms. Referrals: Lane Shea MD [Primary Care Provider] - Follow up with primary
[2017-03-27 13:38] LABS: BASO # 0.03 K/mm3 (0.0-2.0); BASO % 0.5 % (0.0-3.0); EOS # 0.2 (0.0-0.7); EOS % 2.9 % (1.5-5.0); GRAN % 50.7 % (50.0-68.0); HEMATOCRIT 40.2 % (36.0-48.0); LYMPH # 2.3 (1.2-3.4); MEAN CELL VOLUME 96.4 fl (80.0-105.0); MEAN CORPUSCULAR HEMOGLOBIN 33.8 pg (25.0-35.0); MEAN CORPUSCULAR HGB CONC 35.1 g/dl (31.0-37.0); MEAN PLATELET VOLUME 10.5 fl (7.0-11.0); MONO # 0.4 (0.1-0.6); MONO % 6.9 % (1.0-6.0); WHITE BLOOD COUNT 5.9 10^3/ul (4.5-11.0)
[2017-03-27 13:45] LABS: ALB/GLOB RATIO 1.2 (1.1-1.8); ALKALINE PHOSPHATASE 132 U/L (38-126); ALT/SGPT 99 U/L (7-56); AST/SGOT 122 U/L (14-36); BILIRUBIN,TOTAL 1.1 mg/dL (0.2-1.3); BLOOD UREA NITROGEN 13 mg/dL (7-21); CALCIUM 8.7 mg/dL (8.4-10.5); CARBON DIOXIDE 25 mmol/L (21-33); CHLORIDE 99 mmol/L (98-107); GFR AFRICAN-AMERICAN > 60; LIPASE 128 U/L (23-300); MAGNESIUM 1.7 mg/dL (1.7-2.2); SODIUM 134 mmol/L (132-148); TOTAL PROTEIN 6.5 g/dL (5.8-8.3)
[2017-03-27 13:47] LABS: GLUCOSE,RANDOM 449 mg/dL (70-110)
[2017-03-27 13:51] LABS: INR 1.15 (0.93-1.08); PARTIAL THROMBOPLASTIN TIME 26.8 Seconds (23.7-30.8)
[2017-03-27 13:52] LABS: D DIMER 0.29 mg/L FEU (0-0.50)
[2017-03-27] MEDS ORDERED: Insulin Regular 1 UNITS/0.01 ML ML IVP STA (13:54)
[2017-03-27] MEDS ORDERED: Sodium Chloride 0.9% 1,000 ML IV STA (13:54)
[2017-03-27 13:56] LABS: TROPONIN I < 0.01 ng/mL
[2017-03-27 15:21] LABS: URINE BILIRUBIN NEGATIVE (NEGATIVE); URINE BLOOD NEGATIVE (NEGATIVE); URINE GLUCOSE (UA) >=1000 mg/dL (NEGATIVE); URINE KETONE NEGATIVE (NEGATIVE); URINE LEUKOCYTE ESTERASE NEGATIVE Leu/uL (NEGATIVE); URINE PROTEIN TRACE mg/dL (<30 mg/dL); URINE UROBILINOGEN 0.2 E.U./dL (<1 E.U./dL)
[2017-03-27 15:27] LABS: URINE APPEARANCE SLIGHT-CLOUDY (CLEAR); URINE COLOR YELLOW (YELLOW)
--- NOTE | 2017-03-27 15:27 | RAD ---
PROCEDURE: CHEST RADIOGRAPH, 1 VIEW HISTORY: chest pain COMPARISON: None available. FINDINGS: LUNGS: Clear. PLEURA: No pneumothorax or pleural fluid seen. CARDIOVASCULAR: Normal. OSSEOUS STRUCTURES: No significant abnormalities. VISUALIZED UPPER ABDOMEN: Normal. OTHER FINDINGS: None. IMPRESSION: No active disease.
[2017-03-27 15:41] LABS: URINE BACTERIA MOD (NEG); URINE RBC 0 - 2 /hpf (0-2)
--- NOTE | 2017-03-27 16:01 | CT ---
PROCEDURE: HISTORY: cp radiating to the back -r/o dissection / PE COMPARISON: CT chest abdomen and pelvis with IV contrast and PO contrast 02/23/2017 TECHNIQUE: This CT exam was performed using one or more of the following dose reduction techniques: Automated exposure control, adjustment of the mA and/or kV according to patient size, and/or use of iterative reconstruction technique. Total dose 1446 mGY FINDINGS: LUNGS: No nodule, mass or consolidation. MEDIASTINUM: Scattered atherosclerotic arterial calcifications thoracic and abdominal pelvic levels. Normal caliber aorta and pulmonary arterial trunk. No aortic dissection. Normal size heart. No pulmonary emboli note LYMPH NODES: Unremarkable. PLEURA: Trace areas of nonspecific pleural thickening right lung base. No pneumothorax. No pleural fluid. BONES: Unremarkable. OTHER FINDINGS: None. CT ABDOMEN AND PELVIS: LIVER: There is fatty infiltration of the liver. There are no focal liver lesions GALLBLADDER AND BILE DUCTS: Gallbladder removed PANCREAS: The pancreatic head is prominent in appearance -this is unchanged. No intrapancreatic ductal dilatation. No extrahepatic bile duct dilatation. This appearance is nonspecific. No differential density mass is evident. SPLEEN: Unremarkable. ADRENALS: Unremarkable. No mass. KIDNEYS AND URETERS: No diffuse hydronephrosis. Left extra renal pelviectasis as before No solid mass. 6 mm nonobstructing stone in the lower pole of the left kidney VASCULATURE: Atherosclerotic vascular calcifications thoracic and descending abdominal aorta and its branches. . No aortic aneurysm. Few scattered phleboliths noted BOWEL: Rectosigmoid apparent clips noted. These are unchanged. No obstruction. No gross mural thickening. . APPENDIX: Not identified. No gross pericecal inflammatory changes PERITONEUM: Unremarkable. No free fluid. No free air. LYMPH NODES: Unremarkable. No enlarged lymph nodes. BLADDER: Unremarkable. REPRODUCTIVE: Unremarkable. BONES: No acute fracture. OTHER FINDINGS: None. IMPRESSION: No dissecting aneurysm. No thoracic or abdominal aortic aneurysm. . Atherosclerotic vascular calcifications are noted. Few coronary artery calcifications are also apparent No pulmonary emboli noted
[2017-03-27 17:55] VITALS: BP 135/79; PULSE 77; RESP 16; O2SAT 98
--- NOTE | 2017-03-27 19:10 | CARD ---
APPROVED REPORT EKG Measurement Heart [id number] NC [id number] [id number] <Conclusion> Normal sinus rhythm Minimal voltage criteria for LVH.
== END 2017-03-27 17:58 | disposition home or self-care (01) ==
LOC: ED 12:48
DX: E11.65 Type 2 diabetes mellitus with hyperglycemia (principal); R07.89 Other chest pain; I10 Essential (primary) hypertension; Z87.891 Personal history of nicotine dependence
CPT/HCPCS: 71010; 71275; 74175; 80053; 81001; 82550; 82948; 83615; 83690; 83735; 84484; 85025; 85378; 85610; 85730; 93005; 96361; 96374; 96375; 99283; J2405; J7040; Q9967

== ENCOUNTER 2017-04-02 21:28 | Emergency (ER) | payer MEDICARE, OTHER ==
[2017-04-02 22:00] VITALS: TEMP 98.1
[2017-04-02 22:06] VITALS: BMI 28.9
--- NOTE | 2017-04-02 22:31 | ED PDOC ---
Arrival/HPI - History of Present Illness Time/Duration: 1-3 hours Symptom Onset: Sudden Symptom Course: Unchanged Quality: Stabbing Severity Level: 8 Activities at Onset: Rest Context: Home - General Chief Complaint: Abdominal Pain Time Seen by Provider: 04/02/17 21:47 - History of Present Illness Narrative History of Present Illness (Text): 04/02/17 22:26 Mrs. 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 She reports that she was laying at home at approximately 2100 when she suddenly felt a sharp pain on her left side that has been unchanged since onset with associated nausea. She reports no alleviating/aggravating factors. She denies fever, chills, headache, changes in her vision, chest pain, palpitations , SOB, cough, vomiting, diarrhea, constipation, burning/pain with urination, hematuria, rash, or any numbness/tingling/weakness of any extremity. (FRANCIA ALEMAN) Past Medical History - Provider Review Nursing Documentation Reviewed: Yes - Travel History Have you recently traveled outside [place] w/in the past 3 mons?: No - Past History Past History: Non-Contributing - Infectious Disease Hx of Infectious Diseases: None - Tetanus Immunization Tetanus Immunization: Unknown - Past Medical History Past Medical History: No Previous - Cardiac Hx Hypertension: Yes - Pulmonary Hx Asthma: Yes - Neurological Hx Seizures: Yes - HEENT Hx HEENT Disorder: No - Renal Hx Renal Disorder: No Hx Kidney Stones: Yes (cystoscopy with stent) Other/Comment: lithotripsy - Endocrine/Metabolic Hx Endocrine Disorders: Yes Hx Diabetes Mellitus Type 2: Yes Other/Comment: niddm - Hematological/Oncological Hx Blood Disorders: Yes Hx Blood Transfusions: No Hx Blood Transfusion Reaction: No Hx Cancer: Yes (colo/rectal in remission/ovarian) Hx Chemotherapy: Yes (2009 and 2014) Other/Comment: chemo PO - Integumentary Hx Dermatological Disorder: No - Musculoskeletal/Rheumatological Hx Arthritis: Yes - Gastrointestinal Hx Gastrointestinal Disorders: Yes Other/Comment: PELVIC MASS L; colorectal cancer - Genitourinary/Gynecological Hx Genitourinary Disorders: Yes Other/Comment: urinary frequency - Psychiatric Hx Psychophysiologic Disorder: Yes Hx Anxiety: Yes Hx Depression: Yes Hx Emotional Abuse: No Hx Panic Disorder: Yes Hx Physical Abuse: No Hx Substance Use: No - Surgical History Other/Comment: lithotripsy, colon resection 2010, r ovary oopherectomy 2010 - Anesthesia Hx Anesthesia: Yes Hx Anesthesia Reactions: No Hx Malignant Hyperthermia: No - Suicidal Assessment Feels Threatened In Home Enviroment: No Family/Social History - Physician Review Nursing Documentation Reviewed: Yes Family/Social History: Unknown Family HX Smoking Status: Former Smoker Hx Alcohol Use: No Hx Substance Use: No Hx Substance Use Treatment: No Allergies/Home Meds Allergies/Adverse Reactions: Allergies No Known Allergies Allergy (Verified 02/10/17 16:09) Home Medications: Home Meds Medication Instructions Recorded Confirmed Simvastatin 20 mg PO DAILY 12/17/14 03/27/17 Capecitabine 500 mg PO BID 04/04/16 03/27/17 Metformin ER [Glucophage XR] 1,000 mg PO BID 07/19/16 03/27/17 Empagliflozin [Jardiance] 1 tab PO BID 11/15/16 03/27/17 Review of Systems - Physician Review All systems were reviewed & negative as marked: Yes - Review of Systems Constitutional: Normal. absent: Fevers, Night Sweats Eyes: Normal. absent: Vision Changes ENT: Normal Respiratory: Normal. absent: SOB, Cough Cardiovascular: Normal. absent: Chest Pain, Palpitations Gastrointestinal: Abdominal Pain (Left sided flank pain ), Nausea. absent: Normal, Constipation, Diarrhea, Vomiting Genitourinary Female: Normal. absent: Dysuria, Hematuria Musculoskeletal: Normal. absent: Back Pain, Neck Pain Skin: Normal. absent: Rash Neurological: Normal, Other (Denies numbness/tingling/weakness of any extremity) . absent: Headache Endocrine: Normal Hemo/Lymphatic: Normal Psychiatric: Normal Physical Exam Vital Signs Reviewed: Yes Temperature: Afebrile Blood Pressure: Normal Pulse: Regular Respiratory Rate: Normal Appearance: Positive for: Well-Appearing, Non-Toxic, Uncomfortable Pain Distress: Mild Mental Status: Positive for: Alert and Oriented X 3 - Systems Exam Head: Present: Atraumatic, Normocephalic Pupils: Present: PERRL Extroacular Muscles: Present: EOMI Conjunctiva: Present: Normal Mouth: Present: Moist Mucous Membranes Pharnyx: Present: Normal. No: ERYTHEMA, EXUDATE, TONSILS ENLARGED Nose (External): Present: Atraumatic Nose (Internal): Present: Normal Inspection Neck: Present: Normal Range of Motion, Trachea Midline. No: Meningeal Signs, MIDLINE TENDERNESS, Paraspinal Tenderness, JVD, Lymphadenopathy, Bruit Respiratory/Chest: Present: Clear to Auscultation, Good Air Exchange. No: Respiratory Distress, Accessory Muscle Use, Wheezes, Decreased Breath Sounds, Rales, Retracting, Rhonchi, Tachypneic, Tender to Palpation Cardiovascular: Present: Regular Rate and Rhythm, Normal S1, S2, Peripheal Pulses Present. No: Murmurs, Irregular Rhythm, Tachycardic, Bradycardic Abdomen: Present: Tenderness (Left sided flank pain TTP), Normal Bowel Sounds, Scars. No: Distention, Peritoneal Signs Back: Present: CVA Tenderness (Left sided CVA tenderness). No: Normal Inspection, Midline Tenderness, Paraspinal Tenderness Upper Extremity: Present: Normal Inspection. No: Cyanosis, Edema Lower Extremity: Present: Normal Inspection. No: Edema Neurological: Present: GCS=15, CN II-XII Intact, Speech Normal Skin: Present: Warm, Dry, Normal Color. No: Rashes Psychiatric: Present: Alert, Oriented x 3, Normal Insight, Normal Concentration Vital Signs Temp Pulse Resp BP Pulse Ox 04/03/17 00:43 98.1 F 81 18 134/83 97 04/02/17 22:00 98.1 F 65 22 139/71 100 Medical Decision Making - Lab Interpretations I have reviewed the lab results: Yes Interpretation: No sign. chg./baseline - RAD Interpretation Gas Desulfurizer: Radiologist - EKG Interpretation Interpreted by ED Physician: Yes Type: 12 lead EKG ED Course and Treatment: 04/02/17 22:35 Impression: 66 year old female with a past medical history significant for colon cancer in 2010 and ovarian cancer in 2015, both in remission, HTN, and DM who presents to [facility] [place] [facility] with a chief complaint of left flank pain for one hour [employer]ER Plan: -CBC, CMP, Lipase and cardiac iso's -CT abdomen/pelvis w/o contrast -Reassess and disposition Prior Visits: All results and reports from previous visits reviewed Patient was seen and evaluated for chest pain on 03/27/17 04/02/17 22:37 (FRANCIA ALEMAN) Patient Seen With Resident: In agreement with resident note which contains more details about the patient. Patient was seen and evaluated with resident. Came up with plan and treatment together. left flank pain. imaging neg pain imrpvoe.d labs, urine neg. pt asking for dc return precautions advised. no e/o of renal colic, uti, pyelo. 04/03/17 04:16 (Catrachito Haley) - Lab Interpretations Lab Results: 04/02/17 22:54 04/02/17 22:54 Lab Results 04/03/17 01:34: POC Glucose (mg/dL) 191 H 04/03/17 00:16: Urine Color Yellow, Urine Appearance Clear, Urine pH 6.0, Ur Specific Hector 1.015, Urine Protein Negative, Urine Glucose (UA) >=1000, Urine Ketones Negative, Urine Blood Negative, Urine Nitrate Negative, Urine Bilirubin Negative, Urine Urobilinogen 0.2, Ur Leukocyte Esterase Negative 04/02/17 22:54: Sodium 137, Potassium 4.2, Chloride 102, Carbon Dioxide 27, Anion Gap 12, BUN 11, Creatinine 0.8, Est GFR ( Amer) > 60, Est GFR (Non- Af Amer) > 60, Random Glucose 328 H* D, Calcium 8.7, Total Bilirubin 0.9, AST 143 H, ALT 123 H, Alkaline Phosphatase 114, Lactate Dehydrogenase 769 H, Total Creatine Kinase 125, Troponin I < 0.01, Total Protein 6.5, Albumin 3.6, Globulin 2.9, Albumin/Globulin Ratio 1.2, Lipase 187 04/02/17 22:54: WBC 6.4, RBC 3.99, Hgb 13.7, Hct 38.8, MCV 97.2, MCH 34.3, MCHC 35.3, RDW 14.8 H, Plt Count 97 L, MPV 10.5, Gran % 46.3 L, Lymph % (Auto) 42.2 H , [place] % (Auto) 8.5 H, Eos % (Auto) 2.7, Baso % (Auto) 0.3, Gran # 2.94, Lymph # 2.7, [place] # 0.5, Eos # 0.2, Baso # 0.02 - RAD Interpretation Narrative RAD Interpretations (Text): 04/03/17 01:23 Non-obstructing uropathy and 10mm stone in L kidney that is unchanged (FRANCIA ALEMAN) Radiology Orders: 04/02/17 22:38 ABDOMEN & PELVIS [ABD & PELVIS W/O PO OR IV CONT] [CT] Stat - Medication Orders Current Medication Orders: Discontinued Medications Sodium Chloride (Sodium Chloride 0.9%) 1,000 mls @ 999 mls/hr IV .Q1H1M STA Stop: 04/03/17 01:44 Last Admin: 04/03/17 00:54 Dose: 999 mls/hr eMAR Start Stop Document 04/03/17 00:54 R (Rec: 04/03/17 00:55 [id number]) Intravenous Solution Start Date 04/03/17 Start Time 00:54 End Date 04/03/17 Ketorolac Tromethamine (Toradol) 60 mg IM STAT STA Stop: 04/03/17 00:36 Last Admin: 04/03/17 00:46 Dose: 60 mg MAR Pain Assessment Document 04/03/17 00:46 R (Rec: 04/03/17 00:46 [id number]) Pain Reassessment Is this a pain reassessment? No Sleep Is patient sleeping during reassessment? No Presence of Pain Presence of Pain Yes Pain Scale Used Pain Scale Used Numeric Location Left, Right or Bilateral Left Pain Location Body Site Abdomen Description Description Sharp Intensity of Pain at present 8 Acceptable Level of Pain 0 Pain Behavior Rubbing Site Aggravating Factors ADL's IM Administration Charges Document 04/03/17 00:46 R (Rec: 04/03/17 00:46 [id number]) Injection Site MAR Injection Site Right Deltoid Charges for Administration # of IM Administrations 1 Ondansetron HCl (Zofran Odt) 4 mg PO STAT STA Stop: 04/02/17 22:41 Last Admin: 04/02/17 22:55 Dose: 4 mg Disposition/Present on Arrival - Present on Arrival Any Indicators Present on Arrival: No History of DVT/PE: No History of Uncontrolled Diabetes: No Urinary Catheter: No History of Decub. Ulcer: No History Surgical Site Infection Following: None - Disposition Have Diagnosis and Disposition been Completed?: Yes Disposition Time: 01:24 - Disposition Diagnosis: Left flank pain Disposition: HOME/ ROUTINE Condition: IMPROVED Discharge Instructions (ExitCare): Flank Pain (ED), Diabetic Hyperglycemia (ED) Additional Instructions: Mrs. Allen, thank you for letting us take care of you today. Your provider was Dr. Haley. You were treated for left flank pain. The emergency medical care you received today was directed at your acute symptoms. If you were prescribed any medication, please fill it and take as directed. It may take several days for your symptoms to resolve. Return to the Emergency Department if your symptoms worsen, do not improve, or if you have any other problems. Please contact your doctor or call one of the physicians/clinics you have been referred to that are listed on the Patient Visit Information form that is included in your discharge packet. Bring any paperwork you were given at discharge with you along with any medications you are taking to your follow up visit. Our treatment cannot replace ongoing medical care by a primary care provider (PCP) outside of the emergency department. PLEASE FOLLOW UP WITH YOUR PRIMARY CARE PHYSICIAN WITHIN ONE WEEK FOR POST ER VISIT FOLLOW UP APPOINTMENT Thank you for allowing the [facility] team to be part of your care today. If you had an X-Ray or CT scan: A Radiologist will review the ED reading if any change in treatment is needed we will contact you. Referrals: Lane Shea MD [Primary Care Provider] - Follow up with primary Forms: [employer] (Citizen [place])
[2017-04-02 23:12] LABS: BASO # 0.02 K/mm3 (0.0-2.0); BASO % 0.3 % (0.0-3.0); EOS # 0.2 (0.0-0.7); EOS % 2.7 % (1.5-5.0); GRAN # 2.94 (1.4-6.5); GRAN % 46.3 % (50.0-68.0); HEMATOCRIT 38.8 % (36.0-48.0); LYMPH # 2.7 (1.2-3.4); LYMPH % 42.2 % (22.0-35.0); MEAN CELL VOLUME 97.2 fl (80.0-105.0); MEAN CORPUSCULAR HEMOGLOBIN 34.3 pg (25.0-35.0); MEAN CORPUSCULAR HGB CONC 35.3 g/dl (31.0-37.0); MEAN PLATELET VOLUME 10.5 fl (7.0-11.0); MONO # 0.5 (0.1-0.6); MONO % 8.5 % (1.0-6.0); RED CELL DISTRIBUTION WIDTH 14.8 % (11.5-14.5); WHITE BLOOD COUNT 6.4 10^3/ul (4.5-11.0)
[2017-04-02 23:17] LABS: ALB/GLOB RATIO 1.2 (1.1-1.8); ALKALINE PHOSPHATASE 114 U/L (38-126); ALT/SGPT 123 U/L (7-56); AST/SGOT 143 U/L (14-36); BILIRUBIN,TOTAL 0.9 mg/dL (0.2-1.3); BLOOD UREA NITROGEN 11 mg/dL (7-21); CALCIUM 8.7 mg/dL (8.4-10.5); CARBON DIOXIDE 27 mmol/L (21-33); CHLORIDE 102 mmol/L (98-107); GFR AFRICAN-AMERICAN > 60; LIPASE 187 U/L (23-300); POTASSIUM 4.2 mmol/L (3.6-5.0); SODIUM 137 mmol/L (132-148); TOTAL PROTEIN 6.5 g/dL (5.8-8.3)
[2017-04-02 23:31] LABS: TROPONIN I < 0.01 ng/mL
[2017-04-02 23:33] LABS: GLUCOSE,RANDOM 328 mg/dL (70-110)
[2017-04-03 00:37] LABS: URINE BILIRUBIN NEGATIVE (NEGATIVE); URINE BLOOD NEGATIVE (NEGATIVE); URINE GLUCOSE (UA) >=1000 mg/dL (NEGATIVE); URINE KETONE NEGATIVE (NEGATIVE); URINE LEUKOCYTE ESTERASE NEGATIVE Leu/uL (NEGATIVE); URINE PROTEIN NEGATIVE mg/dL (<30 mg/dL); URINE UROBILINOGEN 0.2 E.U./dL (<1 E.U./dL)
[2017-04-03 00:40] LABS: URINE APPEARANCE CLEAR (CLEAR); URINE COLOR YELLOW (YELLOW)
[2017-04-03] MEDS ORDERED: Sodium Chloride 0.9% 1,000 ML IV STA (00:44)
--- NOTE | 2017-04-03 01:18 | CT ---
EXAM: CT Abdomen and Pelvis Without Intravenous Contrast CLINICAL HISTORY: 66 years old, female; Pain; Abdominal pain; Flank; Left; Prior surgery; Surgery date: 6+ months; Surgery type: Appendectomy, gallbladder removal; Additional info: Left flank pain TECHNIQUE: Axial computed tomography images of the abdomen and pelvis without intravenous contrast. All CT scans at this facility use one or more dose reduction techniques, viz.: automated exposure control; ma/kV adjustment per patient size (including targeted exams where dose is matched to indication; i.e. head); or iterative reconstruction technique. Coronal and sagittal reformatted images were created and reviewed. COMPARISON: CT - CHEST,ABD,PEL W/IV PO CONTRAST 2017-02-23 08:34 FINDINGS: Lower thorax: The bilateral lung bases are clear. ABDOMEN: Liver: No acute findings Gallbladder and bile ducts: The gallbladder surgically absent. No intra-extrahepatic biliary ductal dilation. Pancreas: Limited evaluation secondary to the lack of intravenous contrast. Spleen: No acute findings. Adrenals: No acute findings. Kidneys and ureters: No obstructing stones. A 10 mm nonobstructing stone is again identified within the lower pole of the left kidney. No hydronephrosis. PELVIS: Bladder: No acute findings. Reproductive: No acute findings. Appendix: Surgically absent. ABDOMEN and PELVIS: Stomach and bowel: No acute findings. Stapled anastomosis within the rectosigmoid colon. Aerated stool within the rectum. Peritoneum: No acute findings. Lymph nodes: Limited evaluation without intravenous contrast. Vasculature: No aortic aneurysm. Bones: No acute fracture. IMPRESSION: No obstructing uropathy. 10 mm nonobstructing stone within the lower pole of the left kidney (unchanged).
[2017-04-03 01:36] VITALS: BP 134/83; PULSE 81; RESP 18; O2SAT 97
--- NOTE | 2017-04-03 21:57 | CARD ---
APPROVED REPORT EKG Measurement Heart [id number] <Conclusion> Sinus bradycardia Moderate voltage criteria for LVH, may be normal variant T wave abnormality, consider anterior ischemia Abnormal ECG
== END 2017-04-03 01:39 | disposition home or self-care (01) ==
LOC: ED 21:28
DX: R10.9 Unspecified abdominal pain (principal); E11.9 Type 2 diabetes mellitus without complications; I10 Essential (primary) hypertension; Z87.891 Personal history of nicotine dependence; Z79.84 Long term (current) use of oral hypoglycemic drugs; Z85.038 Personal history of other malignant neoplasm of large intestine; Z85.43 Personal history of malignant neoplasm of ovary
CPT/HCPCS: 74176; 80053; 81003; 82550; 82948; 83615; 83690; 84484; 85025; 93005; 96372; 99284; J1885; J7040

== ENCOUNTER 2017-04-04 18:53 | Emergency (ER) | payer MEDICARE, OTHER ==
[2017-04-04 18:53] VITALS: BMI 28.9
[2017-04-04 19:14] VITALS: BP 100/57; PULSE 96; RESP 17; TEMP 100.3; O2SAT 97
[2017-04-04] MEDS ORDERED: Sodium Chloride 0.9% 1,000 ML IV STA (19:23)
--- NOTE | 2017-04-04 19:40 | ED PDOC ---
Arrival/HPI - General Chief Complaint: Cough, Cold, Congestion Time Seen by Provider: 04/04/17 19:08 Historian: Patient - History of Present Illness Narrative History of Present Illness (Text): 04/04/17 19:27 A 66 year old female, whose past medical history includes diabetes, DVT, and hyperlipidemia, presents to the emergency department complaining of nasal congestion, nonproductive cough, sore throat, and generalized myalgias onset of 1 day. Patient reports she received flu shot 2 days ago. Patient denies of any fever, chills, nausea, vomiting, abdominal pain, chest pain, shortness of breath , dysuria, urinary output changes, or any other complaints. PMD: Dr. Shea Time/Duration: 24 hours Symptom Onset: Sudden Symptom Course: Unchanged Past Medical History - Provider Review Nursing Documentation Reviewed: Yes - Past History Past History: Non-Contributing - Infectious Disease Hx of Infectious Diseases: None - Tetanus Immunization Tetanus Immunization: Unknown - Past Medical History Past Medical History: No Previous - Cardiac Hx Hypertension: Yes - Pulmonary Hx Asthma: Yes - Neurological Hx Seizures: Yes - HEENT Hx HEENT Disorder: No - Renal Hx Renal Disorder: No Hx Kidney Stones: Yes (cystoscopy with stent) Other/Comment: lithotripsy - Endocrine/Metabolic Hx Endocrine Disorders: Yes Hx Diabetes Mellitus Type 2: Yes Other/Comment: niddm - Hematological/Oncological Hx Blood Disorders: Yes Hx Blood Transfusions: No Hx Blood Transfusion Reaction: No Hx Cancer: Yes (colo/rectal in remission/ovarian) Hx Chemotherapy: Yes (2009 and 2014) Other/Comment: chemo PO - Integumentary Hx Dermatological Disorder: No - Musculoskeletal/Rheumatological Hx Arthritis: Yes - Gastrointestinal Hx Gastrointestinal Disorders: Yes Other/Comment: PELVIC MASS L; colorectal cancer - Genitourinary/Gynecological Hx Genitourinary Disorders: Yes Other/Comment: urinary frequency - Psychiatric Hx Psychophysiologic Disorder: Yes Hx Anxiety: Yes Hx Depression: Yes Hx Emotional Abuse: No Hx Panic Disorder: Yes Hx Physical Abuse: No Hx Substance Use: No - Surgical History Other/Comment: lithotripsy, colon resection 2009, r ovary oopherectomy 2009 - Anesthesia Hx Anesthesia: Yes Hx Anesthesia Reactions: No Hx Malignant Hyperthermia: No - Suicidal Assessment Feels Threatened In Home Enviroment: No Family/Social History - Physician Review Nursing Documentation Reviewed: Yes Family/Social History: No Known Family HX Smoking Status: Former Smoker Hx Alcohol Use: No Hx Substance Use: No Hx Substance Use Treatment: No Allergies/Home Meds Allergies/Adverse Reactions: Allergies No Known Allergies Allergy (Verified 04/04/17 19:14) Review of Systems - Physician Review All systems were reviewed & negative as marked: Yes - Review of Systems Constitutional: absent: Fevers, Night Sweats ENT: Sore Throat, Sinus Congestion Respiratory: Cough (nonproductive cough). absent: SOB Cardiovascular: absent: Chest Pain Gastrointestinal: absent: Abdominal Pain, Nausea, Vomiting Genitourinary Female: absent: Dysuria, Urine Output Changes Musculoskeletal: Myalgias (generalized ) Physical Exam Vital Signs Reviewed: Yes Vital Signs Temp Pulse Resp BP Pulse Ox 04/04/17 19:05 100.3 F H 96 H 17 100/57 L 97 Temperature: Afebrile Blood Pressure: Normal Pulse: Regular Respiratory Rate: Normal Appearance: Positive for: Well-Appearing Pain Distress: None Mental Status: Positive for: Alert and Oriented X 3 - Systems Exam Head: Present: Atraumatic, Normocephalic Pupils: Present: PERRL Extroacular Muscles: Present: EOMI Conjunctiva: Present: Normal Mouth: Present: Moist Mucous Membranes Pharnyx: Present: TONSILS ENLARGED, Strider Nose (Internal): Present: Clear Mucous Neck: Present: Normal Range of Motion Respiratory/Chest: Present: Clear to Auscultation, Good Air Exchange. No: Respiratory Distress, Accessory Muscle Use Cardiovascular: Present: Regular Rate and Rhythm, Normal S1, S2. No: Murmurs Abdomen: Present: Normal Bowel Sounds. No: Tenderness, Distention, Peritoneal Signs Back: Present: Normal Inspection Upper Extremity: Present: Normal Inspection. No: Cyanosis, Edema Lower Extremity: Present: Normal Inspection. No: Edema Neurological: Present: GCS=15, CN II-XII Intact, Speech Normal Skin: Present: Warm, Dry, Normal Color. No: Rashes Psychiatric: Present: Alert, Oriented x 3, Normal Insight, Normal Concentration Medical Decision Making ED Course and Treatment: 04/04/17 19:33 Impression: 66 year old male with nasal congestion, nonproductive cough, sore throat, and generalized myalgias. Differential Diagnosis included but are not limited to: Symptoms consistent with Upper Respiratory Infection. Plan: -- Chest X-ray -- Labs -- Toradol -- IV Fluids -- Serology -- Reassess and disposition Prior Visits: Notes and results from previous visits were reviewed. Patient was last seen in the emergency department on 02/10/2017 for mid back pain. Patient was discharged home. Progress Notes: 04/04/17 22:53 Cxray negative. Dc with ztxck - Lab Interpretations Lab Results: 04/04/17 20:33 04/04/17 20:03 Lab Results 04/04/17 20:33: WBC 8.9 D, RBC 4.14, Hgb 14.1, Hct 40.0, MCV 96.6, MCH 34.1, MCHC 35.3, RDW 14.4, Plt Count 94 L, MPV 10.2, Gran % 62.8, Lymph % (Auto) 25.7 , [place] % (Auto) 10.1 H, Eos % (Auto) 1.2 L, Baso % (Auto) 0.2, Gran # 5.56, Lymph # 2.3, [place] # 0.9 H, Eos # 0.1, Baso # 0.02 04/04/17 20:03: Sodium 135, Potassium 4.1, Chloride 100, Carbon Dioxide 26, Anion Gap 13, BUN 8, Creatinine 0.8, Est GFR ( Amer) > 60, Est GFR (Non- Af Amer) > 60, Random Glucose 254 H, Calcium 9.0, Total Bilirubin 1.1, AST 75 H D, ALT 102 H, Alkaline Phosphatase 117, Total Protein 6.7, Albumin 3.7, Globulin 2.9, Albumin/Globulin Ratio 1.3 04/04/17 20:03: Influenza Typ A,B (EIA) Negative for flu a/b, Grp A Beta Strep Ag Negative - RAD Interpretation Radiology Orders: 04/04/17 19:24 CHEST TWO VIEWS (PA/LAT) [RAD] Stat - Medication Orders Current Medication Orders: Discontinued Medications Sodium Chloride (Sodium Chloride 0.9%) 1,000 mls @ 999 mls/hr IV .Q1H1M STA Stop: 04/04/17 20:23 Last Admin: 04/04/17 20:02 Dose: 999 mls/hr eMAR Start Stop Document 04/04/17 20:02 EQ (Rec: 04/04/17 20:02 [id number][place] Intravenous Solution Start Date 04/04/17 Start Time 20:02 Ketorolac Tromethamine (Toradol) 30 mg IVP STAT STA Stop: 04/04/17 19:24 Last Admin: 04/04/17 20:02 Dose: 30 mg MAR Pain Assessment Document 04/04/17 20:02 EQ (Rec: 04/04/17 20:02 [id number][place] Pain Reassessment Is this a pain reassessment? No Sleep Is patient sleeping during reassessment? No Presence of Pain Presence of Pain Yes IVP Administration Document 04/04/17 20:02 EQ (Rec: 04/04/17 20:02 [id number][place] Charges for Administration # of IVP Administrations 1 - Scribe Statement The provider has reviewed the documentation as recorded by the Claudia Cedillo Provider Scribe Attestation: All medical record entries made by the Scribe were at my direction and personally dictated by me. I have reviewed the chart and agree that the record accurately reflects my personal performance of the history, physical exam, medical decision making, and the department course for this patient. I have also personally directed, reviewed, and agree with the discharge instructions and disposition. Disposition/Present on Arrival - Present on Arrival Any Indicators Present on Arrival: No History of DVT/PE: No History of Uncontrolled Diabetes: No Urinary Catheter: No History of Decub. Ulcer: No History Surgical Site Infection Following: None - Disposition Have Diagnosis and Disposition been Completed?: Yes Diagnosis: Bronchitis Disposition: HOME/ ROUTINE Disposition Time: 22:54 Patient Plan: Discharge Condition: GOOD Discharge Instructions (ExitCare): Upper Respiratory Infection (ED) Additional Instructions: Follow-up with PMD within 2 days. Take full course of antibiotics. Return to ED if condition worsens. Prescriptions: Azithromycin 250 mg PO DAILY #4 tab Forms: [employer] ([place])
[2017-04-04 20:20] LABS: ALB/GLOB RATIO 1.3 (1.1-1.8); ALKALINE PHOSPHATASE 117 U/L (38-126); ALT/SGPT 102 U/L (7-56); AST/SGOT 75 U/L (14-36); BILIRUBIN,TOTAL 1.1 mg/dL (0.2-1.3); BLOOD UREA NITROGEN 8 mg/dL (7-21); CARBON DIOXIDE 26 mmol/L (21-33); CHLORIDE 100 mmol/L (98-107); GFR AFRICAN-AMERICAN > 60; GLUCOSE,RANDOM 254 mg/dL (70-110); POTASSIUM 4.1 mmol/L (3.6-5.0); SODIUM 135 mmol/L (132-148); TOTAL PROTEIN 6.7 g/dL (5.8-8.3)
[2017-04-04 20:40] LABS: BASO # 0.02 K/mm3 (0.0-2.0); BASO % 0.2 % (0.0-3.0); EOS # 0.1 (0.0-0.7); EOS % 1.2 % (1.5-5.0); GRAN # 5.56 (1.4-6.5); GRAN % 62.8 % (50.0-68.0); LYMPH # 2.3 (1.2-3.4); LYMPH % 25.7 % (22.0-35.0); MEAN CELL VOLUME 96.6 fl (80.0-105.0); MEAN CORPUSCULAR HEMOGLOBIN 34.1 pg (25.0-35.0); MEAN CORPUSCULAR HGB CONC 35.3 g/dl (31.0-37.0); MEAN PLATELET VOLUME 10.2 fl (7.0-11.0); MONO # 0.9 (0.1-0.6); MONO % 10.1 % (1.0-6.0); RED CELL DISTRIBUTION WIDTH 14.4 % (11.5-14.5); WHITE BLOOD COUNT 8.9 10^3/ul (4.5-11.0)
--- NOTE | 2017-04-05 08:51 | RAD ---
HISTORY: fever COMPARISON: 04/24/2010 TECHNIQUE: Chest PA and lateral FINDINGS: LUNGS: No active pulmonary disease. PLEURA: No significant pleural effusion identified. No pneumothorax apparent. CARDIOVASCULAR: Right PICC catheter terminating at cavoatrial junction region. OSSEOUS STRUCTURES: No significant abnormalities. VISUALIZED UPPER ABDOMEN: Normal. OTHER FINDINGS: None. IMPRESSION: No active disease.
== END 2017-04-04 23:17 | disposition home or self-care (01) ==
LOC: ED 18:53
DX: J40 Bronchitis, not specified as acute or chronic (principal); Z87.891 Personal history of nicotine dependence
CPT/HCPCS: 71020; 80053; 85025; 87070; 87430; 87804; 96374; 99282; J1885; J7040

== ENCOUNTER 2017-05-02 16:05 | Emergency (ER) | payer MEDICARE, OTHER ==
[2017-05-02 16:05] VITALS: BMI 28.9
--- NOTE | 2017-05-02 17:02 | ED PDOC ---
"Arrival/HPI - General Chief Complaint: Back Pain Time Seen by Provider: 05/02/17 16:13 Historian: Patient - History of Present Illness Narrative History of Present Illness (Text): 05/02/17 16:58 A 66 year old female, whose past medical history includes diabetes, DVT, and hyperlipidemia, presents to the emergency department complaining of left flank pain, and left sided chest pain since this morning. Past Medical History - Past History Past History: Non-Contributing - Infectious Disease Hx of Infectious Diseases: None - Tetanus Immunization Tetanus Immunization: Unknown - Past Medical History Past Medical History: No Previous - Cardiac Hx Hypertension: Yes - Pulmonary Hx Asthma: Yes - Neurological Hx Seizures: Yes - HEENT Hx HEENT Disorder: No - Renal Hx Renal Disorder: No Hx Kidney Stones: Yes (cystoscopy with stent) Other/Comment: lithotripsy - Endocrine/Metabolic Hx Endocrine Disorders: Yes Hx Diabetes Mellitus Type 2: Yes Other/Comment: niddm - Hematological/Oncological Hx Blood Disorders: Yes Hx Blood Transfusions: No Hx Blood Transfusion Reaction: No Hx Cancer: Yes (colo/rectal) Hx Chemotherapy: Yes - Integumentary Hx Dermatological Disorder: No - Musculoskeletal/Rheumatological Hx Arthritis: Yes - Gastrointestinal Hx Gastrointestinal Disorders: Yes Other/Comment: colorectal cancer - Genitourinary/Gynecological Hx Genitourinary Disorders: Yes Other/Comment: urinary frequency - Psychiatric Hx Psychophysiologic Disorder: Yes Hx Anxiety: Yes Hx Depression: Yes Hx Panic Disorder: Yes Hx Substance Use: No - Surgical History Other/Comment: lithotripsy, colon resection 2009, r ovary oopherectomy 2009 - Anesthesia Hx Anesthesia: Yes - Suicidal Assessment Feels Threatened In Home Enviroment: No Family/Social History Smoking Status: Former Smoker Hx Alcohol Use: No Hx Substance Use: No Hx Substance Use Treatment: No Allergies/Home Meds Allergies/Adverse Reactions: Allergies No Known Allergies Allergy (Verified 05/02/17 16:19) Home Medications: Home Meds Medication Instructions Recorded Confirmed Levetiracetam [Keppra] 750 mg PO BID 05/02/17 05/02/17 Metformin HCl [Glucophage] 1 tab PO BID 05/02/17 05/02/17 carBAMazepine [Tegretol] 250 mg PO BID 05/02/17 05/02/17 Physical Exam Vital Signs Temp Pulse Resp BP Pulse Ox 05/02/17 21:00 97.8 F 61 17 132/82 94 L 05/02/17 19:05 98.7 F 66 18 127/63 95 05/02/17 16:20 98.8 F 77 16 124/79 97 Medical Decision Making ED Course and Treatment: 05/02/17 21:57 Second EKG: NSR @ 61 bpm. Normal interval 05/02/17 22:30 Second Troponin I was negative Re-evaluation Time: 21:58 Reassessment Condition: Re-examined, Improved - Lab Interpretations Lab Results: 05/02/17 17:50 05/02/17 17:50 Lab Results 05/02/17 21:49: Troponin I < 0.01 05/02/17 17:50: PT 12.8 H, INR 1.17 H, APTT 31.2 05/02/17 17:50: Sodium 139, Potassium 3.5 L, Chloride 103, Carbon Dioxide 28, Anion Gap 12, BUN 12, Creatinine 0.8, Est GFR ( Amer) > 60, Est GFR (Non- Af Amer) > 60, Random Glucose 211 H, Calcium 8.9, Magnesium 2.0, Total Bilirubin 1.0, AST 98 H D, ALT 85 H, Alkaline Phosphatase 120, Lactate Dehydrogenase 610, Total Creatine Kinase 55, Troponin I < 0.01, NT-Pro-B Natriuret Pep 43.3, Total Protein 6.6, Albumin 3.4, Globulin 3.2, Albumin/ Globulin Ratio 1.1 05/02/17 17:50: WBC 5.8 D, RBC 4.14, Hgb 14.3, Hct 40.4, MCV 97.6, MCH 34.5, MCHC 35.4, RDW 14.8 H, Plt Count 99 L, MPV 10.3, Gran % 34.3 L, Lymph % (Auto) 49.9 H, [place] % (Auto) 13.8 H, Eos % (Auto) 1.7, Baso % (Auto) 0.3, Gran # 1.99, Lymph # 2.9, [place] # 0.8 H, Eos # 0.1, Baso # 0.02 05/02/17 16:45: Urine Color Yellow, Urine Appearance Clear, Urine pH 6.0, Ur Specific [place] 1.010, Urine Protein Negative, Urine Glucose (UA) >=1000, Urine Ketones Negative, Urine Blood Negative, Urine Nitrate Negative, Urine Bilirubin Negative, Urine Urobilinogen 1.0 H, Ur Leukocyte Esterase Negative I have reviewed the lab results: Yes Interpretation: No sign. chg./baseline - RAD Interpretation Narrative RAD Interpretations (Text): 05/02/17 20:56 EXAM: CT Angiography Chest With Intravenous Contrast CLINICAL HISTORY: 66 years old, female; Pain; Chest pain; Type not specified; Additional info: Chest pain R/O pe T FINDINGS: Pulmonary arteries: Unremarkable. No pulmonary embolism. Aorta: No acute findings. No thoracic aortic aneurysm. Lungs: Atelectasis posterior lungs. 4 mm indeterminate pulmonary nodule right upper lobe. Followup could be obtained per site protocol. Pleural space: Unremarkable. No significant effusion. No pneumothorax. Heart: Unremarkable. No cardiomegaly. No significant pericardial effusion. No evidence of RV dysfunction. Bones/joints: No acute fracture. No dislocation. Soft tissues: Unremarkable. Lymph nodes: Unremarkable. No enlarged lymph nodes. Gallbladder and bile ducts: Cholecystectomy. IMPRESSION: No pulmonary embolism. MISSY BRUCE | Preliminary Radiology Report Thank you for allowing us to participate in the care of your patient. Dictated and Authenticated by: Davy Pinedo MD 05/02/2017 8:40 PM Eastern Time ([place] & [place]) Radiology Orders: 05/02/17 17:09 CHEST PORTABLE [RAD] Stat 05/02/17 17:10 ABDOMEN COMPLETE [US] Stat 05/02/17 17:11 ANGIO CHEST PE PROTOCOL [CT] Stat - Medication Orders Current Medication Orders: Discontinued Medications Aspirin (Aspirin) 325 mg PO STAT STA Stop: 05/02/17 17:09 Last Admin: 05/02/17 17:20 Dose: 325 mg Disposition/Present on Arrival - Present on Arrival Any Indicators Present on Arrival: No History of DVT/PE: No History of Uncontrolled Diabetes: No Urinary Catheter: No History of Decub. Ulcer: No History Surgical Site Infection Following: None - Disposition Have Diagnosis and Disposition been Completed?: Yes Diagnosis: Non-cardiac chest pain, Flank pain Disposition: HOME/ ROUTINE Disposition Time: 22:30 Patient Plan: Discharge Patient Problems: Current Active Problems Problem Status Onset Flank pain Acute Non-cardiac chest pain Acute Condition: GOOD Discharge Instructions (ExitCare): Chest Pain (ED) Additional Instructions: Call private doctor for follow up visit in 1-2 days. Take medication as instructed with food. Avoid lifting with your left arm. Return to emergency if symptoms worsen. Prescriptions: traMADol [Ultram] 50 mg PO TID PRN #10 tab PRN Reason: Pain, Severe (8-10) Referrals: Benjie Lovelace MD [Staff Provider] - Follow up with primary Dany Anton DO [Staff Provider] - Follow up with primary [facility] [Outside] - Follow up with primary [facility] [Outside] - Follow up with primary Forms: [employer] (Ivorian)"
[2017-05-02 17:57] LABS: URINE APPEARANCE CLEAR (CLEAR); URINE BILIRUBIN NEGATIVE (NEGATIVE); URINE BLOOD NEGATIVE (NEGATIVE); URINE COLOR YELLOW (YELLOW); URINE GLUCOSE (UA) >=1000 mg/dL (NEGATIVE); URINE KETONE NEGATIVE (NEGATIVE); URINE LEUKOCYTE ESTERASE NEGATIVE Leu/uL (NEGATIVE); URINE PROTEIN NEGATIVE mg/dL (<30 mg/dL)
[2017-05-02 18:08] LABS: BASO # 0.02 K/mm3 (0.0-2.0); BASO % 0.3 % (0.0-3.0); EOS # 0.1 (0.0-0.7); EOS % 1.7 % (1.5-5.0); GRAN # 1.99 (1.4-6.5); GRAN % 34.3 % (50.0-68.0); HEMATOCRIT 40.4 % (36.0-48.0); LYMPH # 2.9 (1.2-3.4); LYMPH % 49.9 % (22.0-35.0); MEAN CELL VOLUME 97.6 fl (80.0-105.0); MEAN CORPUSCULAR HEMOGLOBIN 34.5 pg (25.0-35.0); MEAN CORPUSCULAR HGB CONC 35.4 g/dl (31.0-37.0); MEAN PLATELET VOLUME 10.3 fl (7.0-11.0); MONO # 0.8 (0.1-0.6); MONO % 13.8 % (1.0-6.0); RED CELL DISTRIBUTION WIDTH 14.8 % (11.5-14.5); WHITE BLOOD COUNT 5.8 10^3/ul (4.5-11.0)
[2017-05-02 18:14] LABS: INR 1.17 (0.93-1.08); PARTIAL THROMBOPLASTIN TIME 31.2 Seconds (25.1-36.5)
[2017-05-02 18:24] LABS: CHLORIDE 103 mmol/L (98-107)
[2017-05-02 18:33] LABS: TROPONIN I < 0.01 ng/mL
[2017-05-02 18:38] LABS: ALB/GLOB RATIO 1.1 (1.1-1.8); ALKALINE PHOSPHATASE 120 U/L (38-126); ALT/SGPT 85 U/L (7-56); AST/SGOT 98 U/L (14-36); BLOOD UREA NITROGEN 12 mg/dL (7-21); CALCIUM 8.9 mg/dL (8.4-10.5); CARBON DIOXIDE 28 mmol/L (21-33); GFR AFRICAN-AMERICAN > 60; GLUCOSE,RANDOM 211 mg/dL (70-110); POTASSIUM 3.5 mmol/L (3.6-5.0); SODIUM 139 mmol/L (132-148); TOTAL PROTEIN 6.6 g/dL (5.8-8.3)
[2017-05-02] MEDS ORDERED: Iohexol 350 MG/100 ML VIAL ONE (18:52)
--- NOTE | 2017-05-02 19:00 | US ---
HISTORY: left flank pain r/o hydro COMPARISON: CT abdomen and pelvis without contrast performed 04/03/17 TECHNIQUE: Sonographic evaluation of the abdomen. FINDINGS: LIVER: Measures 16.5 cm in sagittal dimension. Echogenic liver may be seen in setting of hepatic parenchymal disease or fatty infiltration. No focal hepatic mass identified. The main portal vein appears patent with normal directional flow. No intrahepatic bile duct dilatation. GALLBLADDER: Cholecystectomy. COMMON BILE DUCT: Measures 4 mm. PANCREAS: Not well visualized. RIGHT KIDNEY: Measures 11.4 x 4.9 x 4.6cm. No obstructing calculus or hydronephrosis identified. LEFT KIDNEY: Measures 10.6 x 5.0 x 4.3 cm. Punctate echogenic focus noted on a single provided sonographic view without clear evidence of posterior acoustic shadowing, appears artifactual. No obstructing calculus or hydronephrosis identified. SPLEEN: Measures approximately 10 cm. AORTA: Not well visualized. IVC: Limited views appear unremarkable. OTHER FINDINGS: None. IMPRESSION: Echogenic liver may be seen in setting of hepatic parenchymal disease or fatty infiltration. Cholecystectomy. Punctate echogenic focus within the left kidney noted on a single provided sonographic view without clear evidence of posterior acoustic shadowing, appears artifactual. No hydronephrosis or obstructing calculus bilaterally. Please note that 10 mm calculus noted at the left lower pole on CT performed 04/03/17 is not visualized on the current examination. Examination and provided sonographic views are limited.
--- NOTE | 2017-05-02 21:45 | CARD ---
APPROVED REPORT EKG Measurement Heart [id number] 126P40 [id number] <Conclusion> Sinus rhythm with premature supraventricular complexes Minimal voltage criteria for LVH, may be normal variant Borderline ECG
[2017-05-02 21:58] VITALS: TEMP 97.8
[2017-05-02 22:46] VITALS: BP 130/82; PULSE 62; RESP 19; O2SAT 96
--- NOTE | 2017-05-03 08:20 | RAD ---
HISTORY: Chest pain. COMPARISON: 04/04/2017. FINDINGS: LUNGS: No active pulmonary disease. PLEURA: No significant pleural effusion identified, no pneumothorax apparent. CARDIOVASCULAR: No radiographic findings to suggest acute or significant cardiovascular disease. PICC line in satisfactory position last feels . OSSEOUS STRUCTURES: No significant abnormalities. VISUALIZED UPPER ABDOMEN: Normal. OTHER FINDINGS: None. IMPRESSION: No active disease. No significant interval change compared to the prior examination(s). Concordant results with the preliminary interpretation rendered by the emergency department physician procedure
--- NOTE | 2017-05-03 08:43 | CT ---
PROCEDURE: CT Chest with contrast (Pulmonary Angiogram) HISTORY: chest pain r/o PE COMPARISON: None available. TECHNIQUE: Axial computed tomography images were obtained of the chest in the pulmonary arterial phase of enhancement. Coronal and sagittal reformatted images were created and reviewed. Intravenous contrast dose: 100 cc Omnipaque 350. Mean Hounsfield unit values in the main pulmonary artery: 371.17. Radiation dose: Total exam DLP = mGy-cm. This CT exam was performed using one or more of the following dose reduction techniques: Automated exposure control, adjustment of the mA and/or kV according to patient size, and/or use of iterative reconstruction technique. FINDINGS: PULMONARY ARTERIES: Unremarkable. No pulmonary embolism. AORTA: No acute findings. No thoracic aortic aneurysm. LUNGS: Unremarkable. No nodule, mass or pulmonary consolidation. PLEURAL SPACES: Unremarkable. No effusion or pneuomothorax. HEART: Unremarkable. No cardiomegaly. No significant pericardial effusion. LYMPH NODES: No lymphadenopathy. BONES, CHEST WALL: Unremarkable. No fracture or destructive lesion OTHER FINDINGS: Unremarkable. IMPRESSION: Unremarkable CT pulmonary angiogram. No pulmonary embolus. Concordant results (preliminary interpretation) provided by [email or web address]. Procedure Completed: 19:13. Preliminary ([facility]) Report: Dictated and Authenticated: 20:40. Final Interpretation: 08:41. May 03, 2017.
--- NOTE | 2017-05-03 23:24 | CARD ---
APPROVED REPORT EKG Measurement Heart [id number] [place] 122P18 [id number] <Conclusion> Normal sinus rhythm Normal ECG
== END 2017-05-02 22:45 | disposition home or self-care (01) ==
LOC: ED 16:05
DX: R07.89 Other chest pain (principal); R10.9 Unspecified abdominal pain; E11.9 Type 2 diabetes mellitus without complications; I10 Essential (primary) hypertension; Z85.038 Personal history of other malignant neoplasm of large intestine; Z87.891 Personal history of nicotine dependence
CPT/HCPCS: 71010; 71275; 76700; 80053; 81003; 82550; 83615; 83735; 83880; 84484; 85025; 85610; 85730; 93005; 99284; Q9967

== ENCOUNTER 2017-06-13 06:09 | Day surgery (SDC) | payer MEDICARE, OTHER ==
[2017-06-11 08:45] VITALS: BMI 26.5
[2017-06-13 07:10] LABS: BASO # 0.07 K/mm3 (0.0-2.0); BASO % 0.9 % (0.0-3.0); EOS # 0.3 (0.0-0.7); EOS % 3.9 % (1.5-5.0); GRAN # 3.11 (1.4-6.5); GRAN % 42.1 % (50.0-68.0); LYMPH # 3.3 (1.2-3.4); LYMPH % 44.1 % (22.0-35.0); MEAN CORPUSCULAR HEMOGLOBIN 34.2 pg (25.0-35.0); MEAN CORPUSCULAR HGB CONC 34.9 g/dl (31.0-37.0); MEAN PLATELET VOLUME 10.7 fl (7.0-11.0); MONO # 0.7 (0.1-0.6); RED CELL DISTRIBUTION WIDTH 14.3 % (11.5-14.5); WHITE BLOOD COUNT 7.4 10^3/ul (4.5-11.0)
[2017-06-13 07:24] LABS: INR 1.18 (0.93-1.08); PARTIAL THROMBOPLASTIN TIME 28.5 Seconds (25.1-36.5)
[2017-06-13 07:28] LABS: BLOOD UREA NITROGEN 10 mg/dL (7-21); CALCIUM 9.3 mg/dL (8.4-10.5); CARBON DIOXIDE 26 mmol/L (21-33); CHLORIDE 100 mmol/L (98-107); GFR AFRICAN-AMERICAN > 60; GLUCOSE,RANDOM 395 mg/dL (70-110); POTASSIUM 4.1 mmol/L (3.6-5.0); SODIUM 136 mmol/L (132-148)
[2017-06-13] MEDS ORDERED: Lidocaine 2% Inj (20ml) ONE (08:56)
[2017-06-13] MEDS ORDERED: Midazolam 2 MG/2 ML VIAL ONE ×2 (08:57→09:34)
[2017-06-13] MEDS ORDERED: HEPARIN SODIUM/NS 2,000 ML IV ONE (08:57)
[2017-06-13] MEDS ORDERED: Nitroglycerin 50mg in D5W 0 MG/0 ML BOTTLE IV ONE (08:57)
[2017-06-13] MEDS ORDERED: Iodixanol 320 MG/ML 200 ML BOTTLE IV ONE (08:57)
[2017-06-13] MEDS ORDERED: Sodium Chloride 0.9% 1,000 ML IV SCH (10:15)
[2017-06-13 11:08] VITALS: TEMP 97.2
--- NOTE | 2017-06-13 11:36 | CARDCATH ---
PROCEDURE DATE: 06/13/2017 HISTORY: The patient is a 66-year-old woman with diabetes mellitus and hypercholesterolemia who presents with recurrence of angina. She is followed in [facility]. She underwent a stress test at [facility], which was stated to be unremarkable. However, because of her ongoing symptoms and recurrent chest pain at rest as well as during exertion, a cardiac catheterization was recommended in addition, the patient suffers from pain in the right lower extremity with ambulation. The patient is currently being treated for colon CA. PROCEDURE: Left heart catheterization with coronary arteriography, left ventriculogram, and aortogram: The right femoral artery was cannulated with a 6-[place] sheath. There were no complications. I performed moderate sedation, which included the presence of an independent trained observer that assisted in monitoring the patient's level of consciousness and physiologic status. After administration of fentanyl and Versed, my intra service time was 15 minutes. Findings on catheterization revealed a left ventricle that contracted normally. Estimated ejection fraction of 60%. Her coronary anatomy revealed a right dominant circulation. There is a 50% ostial RCA stenoses. The left main artery is unremarkable. The LAD and diagonal vessels revealed diffuse intimal irregularities without critical lesions. The circumflex artery and obtuse marginal branches were free of significant disease. 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 Manual compression was used to close the femoral artery site. The patient tolerated the procedure well. In summary, the procedure revealed normal LV function with an EF of 60%. A 50% ostial RCA stenoses, which is noncritical. Stenoses of the right iliac artery. Given these findings, the patient's chest pain is not of cardiac origin. However,her stenosis of the right iliac would require an NILDA of the right lower extremity. After this, I would consider an MRI of the lower extremity to evaluate the stenoses. Benjie Lovelace MD
[2017-06-13 12:06] VITALS: RESP 16
[2017-06-13 13:42] VITALS: O2SAT 98
[2017-06-13 15:56] VITALS: BP 146/74; PULSE 66
--- NOTE | 2017-06-13 17:50 | CARD ---
APPROVED REPORT EKG Measurement Heart [id number] 128P24 [id number] <Conclusion> Sinus bradycardia Moderate voltage criteria for LVH, may be normal variant Borderline ECG
== END 2017-06-13 16:30 | disposition home or self-care (01) ==
LOC: CATH 06:09
PROVIDERS: ATTEND Internal Medicine Cardiovascular Disease
DX: I25.119 Atherosclerotic heart disease of native coronary artery with unspecified angina pectoris (principal); E11.9 Type 2 diabetes mellitus without complications; E78.00 Pure hypercholesterolemia, unspecified; C18.9 Malignant neoplasm of colon, unspecified; I72.3 Aneurysm of iliac artery
CPT/HCPCS: 36415; 80048; 85025; 85610; 85730; 86850; 86900; 93005; 93458; 93567; 99152; C1769 ×2; C2629; J1644; J2250; J3010; J7030; J7040

== ENCOUNTER 2017-06-15 10:31 | Emergency (ER) | payer MEDICARE, OTHER ==
[2017-06-15 10:31] VITALS: BMI 28.9
--- NOTE | 2017-06-15 11:42 | ED PDOC ---
Arrival/HPI - General Chief Complaint: Back Pain Time Seen by Provider: 06/15/17 11:27 Historian: Patient - History of Present Illness Narrative History of Present Illness (Text): 06/15/17 11:27 A 66 year old female, whose past medical history includes diabetes, DVT, and hyperlipidemia, presents to the emergency department complaining back pain and left sided chest pain. The patient reports that this pain has been going on for a while now, but has recently gotten worse. The patient underwent a cauterization 2 days ago and still does not have her results. The patient reports associated nausea, but denies any palpitations, diarrhea, fever, or any other complaints at this time. Time/Duration: Other (a few months, but has worsened over the last week) Symptom Onset: Gradual Symptom Course: Unchanged, Intermittent Quality: Aching, Pressure Severity Level: Mild Activities at Onset: Rest, Light Context: Home Past Medical History - Provider Review Nursing Documentation Reviewed: Yes - Past History Past History: Non-Contributing - Infectious Disease Hx of Infectious Diseases: None - Tetanus Immunization Tetanus Immunization: Unknown - Past Medical History Past Medical History: No Previous - Cardiac Hx Cardiac Disorders: Yes Hx Pacemaker: No - Pulmonary Hx Respiratory Disorders: Yes Hx Asthma: Yes - Neurological Hx Neurological Disorder: Yes Hx Paralysis: No Hx Seizures: Yes - HEENT Hx HEENT Disorder: No - Renal Hx Renal Disorder: No Hx Kidney Stones: Yes (cystoscopy with stent) Other/Comment: lithotripsy - Endocrine/Metabolic Hx Endocrine Disorders: Yes Hx Diabetes Mellitus Type 2: Yes Other/Comment: niddm - Hematological/Oncological Hx Blood Disorders: No Hx Blood Transfusions: No - Integumentary Hx Dermatological Disorder: No - Musculoskeletal/Rheumatological Hx Musculoskeletal Disorders: No - Gastrointestinal Hx Gastrointestinal Disorders: Yes Other/Comment: colorectal cancer - Genitourinary/Gynecological Hx Genitourinary Disorders: Yes Other/Comment: urinary frequency - Psychiatric Hx Emotional Abuse: No Hx Physical Abuse: No Hx Substance Use: No - Surgical History Hx Appendectomy: Yes Hx Cardiac Catheterization: Yes Hx Cholecystectomy: Yes Hx Hysterectomy: Yes Other/Comment: kidney stent - Anesthesia Hx Anesthesia: Yes Hx Anesthesia Reactions: No Hx Malignant Hyperthermia: No - Suicidal Assessment Feels Threatened In Home Enviroment: No Family/Social History - Physician Review Nursing Documentation Reviewed: Yes Family/Social History: No Known Family HX Smoking Status: Former Smoker Hx Alcohol Use: No Hx Substance Use: No Hx Substance Use Treatment: No Allergies/Home Meds Allergies/Adverse Reactions: Allergies No Known Allergies Allergy (Verified 06/15/17 10:40) Home Medications: Home Meds Medication Instructions Recorded Confirmed Levetiracetam [Keppra] 750 mg PO BID 05/02/17 06/15/17 Metformin HCl [Glucophage] 1,000 mg PO BID 05/02/17 06/15/17 carBAMazepine [Tegretol] 250 mg PO BID 05/02/17 06/15/17 Capecitabine [Capecitabine] 500 mg PO BID 06/11/17 06/15/17 Empagliflozin [Jardiance] 25 mg PO DAILY 06/11/17 06/15/17 Review of Systems - Physician Review All systems were reviewed & negative as marked: Yes - Review of Systems Constitutional: absent: Fevers Cardiovascular: Chest Pain. absent: Palpitations Gastrointestinal: Abdominal Pain. absent: Diarrhea Musculoskeletal: Back Pain Physical Exam Vital Signs Reviewed: Yes Vital Signs Temp Pulse Resp BP Pulse Ox 06/15/17 12:10 98 F 59 L 10 L 143/68 100 06/15/17 10:41 96.8 F L 73 18 160/86 H 98 Temperature: Hypothermic Blood Pressure: Hypertensive Pulse: Regular Respiratory Rate: Normal Appearance: Positive for: Well-Appearing, Non-Toxic, Comfortable Pain Distress: None Mental Status: Positive for: Alert and Oriented X 3 - Systems Exam Head: Present: Atraumatic, Normocephalic Pupils: Present: PERRL Extroacular Muscles: Present: EOMI Conjunctiva: Present: Normal Mouth: Present: Moist Mucous Membranes Neck: Present: Normal Range of Motion Respiratory/Chest: Present: Wheezes (mild diffuse expiratory wheezing), Tender to Palpation (reproducible diffuse chest tenderness). No: Respiratory Distress , Accessory Muscle Use Cardiovascular: Present: Regular Rate and Rhythm, Normal S1, S2. No: Murmurs Abdomen: Present: Tenderness (reproducible diffuse upper abdomen tenderness), Normal Bowel Sounds. No: Distention, Peritoneal Signs Back: Present: Other (reproducible diffuse upper back tenderness) Upper Extremity: Present: Normal Inspection. No: Cyanosis, Edema Lower Extremity: Present: Normal Inspection. No: Edema Neurological: Present: GCS=15, CN II-XII Intact, Speech Normal Skin: Present: Warm, Dry, Normal Color. No: Rashes Psychiatric: Present: Alert, Oriented x 3, Normal Insight, Normal Concentration Medical Decision Making ED Course and Treatment: 06/15/17 11:30 Impression: A 66 year old female with chronic back pain and left sided chest pain. Differential Diagnosis included but are not limited to: Plan: -- EKG -- Chest X-ray -- Labs -- Reassess and disposition Prior Visits: Notes and results from previous visits were reviewed. Patient was last seen in the emergency department on 05/02/17 for left sided flank pain. The patient was discharged routine home. Progress Notes: - Lab Interpretations Lab Results: 06/15/17 12:00 06/15/17 12:45 Lab Results 06/15/17 12:45: Sodium 135, Potassium 4.8, Chloride 102, Carbon Dioxide 25, Anion Gap 13, BUN 13, Creatinine 0.6 L, Est GFR ( Amer) > 60, Est GFR ( Non-Af Amer) > 60, Random Glucose 363 H*, Calcium 9.6, Total Bilirubin 0.7, AST 58 H D, ALT 84 H, Alkaline Phosphatase 147 H D, Troponin I < 0.01, Total Protein 7.1, Albumin 3.7, Globulin 3.4, Albumin/Globulin Ratio 1.1 06/15/17 12:00: WBC 6.8, RBC 4.30, Hgb 14.8, Hct 41.8, MCV 97.2, MCH 34.4, MCHC 35.4, RDW 14.4, Plt Count 104 L, MPV 10.6, Gran % 52.3, Lymph % (Auto) 36.1 H, [place] % (Auto) 8.7 H, Eos % (Auto) 2.2, Baso % (Auto) 0.7, Gran # 3.54, Lymph # 2.5, [place] # 0.6, Eos # 0.2, Baso # 0.05 - RAD Interpretation Radiology Orders: 06/15/17 11:33 CHEST PORTABLE [RAD] Stat - Medication Orders Current Medication Orders: Discontinued Medications Ibuprofen (Motrin Tab) 600 mg PO STAT STA Stop: 06/15/17 13:37 Insulin Human Regular (Humulin R) 10 units SC STAT STA Stop: 06/15/17 13:36 - Scribe Statement The provider has reviewed the documentation as recorded by the Claudia Lamar Provider Scribe Attestation: All medical record entries made by the Scribe were at my direction and personally dictated by me. I have reviewed the chart and agree that the record accurately reflects my personal performance of the history, physical exam, medical decision making, and the department course for this patient. I have also personally directed, reviewed, and agree with the discharge instructions and disposition. Disposition/Present on Arrival - Present on Arrival Any Indicators Present on Arrival: No History of DVT/PE: No History of Uncontrolled Diabetes: No Urinary Catheter: No History of Decub. Ulcer: No History Surgical Site Infection Following: None - Disposition Have Diagnosis and Disposition been Completed?: Yes Diagnosis: Chest wall pain, Musculoskeletal pain, Hyperglycemia due to type 2 diabetes mellitus Disposition: HOME/ ROUTINE Disposition Time: 14:45 Patient Problems: Current Active Problems Problem Status Onset Chest wall pain Acute Hyperglycemia due to type 2 diabetes mellitus Acute Musculoskeletal pain Acute Condition: STABLE Discharge Instructions (ExitCare): Chest Pain (ED) Prescriptions: Ibuprofen [Motrin] 600 mg PO TID PRN #12 tab PRN Reason: Pain, Moderate (4-7) Referrals: Lane Shea MD [Primary Care Provider] - Follow up with primary Forms: [employer] (Belgian)
[2017-06-15 12:11] VITALS: TEMP 98; O2SAT 100
[2017-06-15 12:17] LABS: BASO # 0.05 K/mm3 (0.0-2.0); BASO % 0.7 % (0.0-3.0); EOS # 0.2 (0.0-0.7); EOS % 2.2 % (1.5-5.0); GRAN # 3.54 (1.4-6.5); GRAN % 52.3 % (50.0-68.0); HEMOGLOBIN 14.8 g/dL (12.0-16.0); LYMPH # 2.5 (1.2-3.4); LYMPH % 36.1 % (22.0-35.0); MEAN CELL VOLUME 97.2 fl (80.0-105.0); MEAN CORPUSCULAR HEMOGLOBIN 34.4 pg (25.0-35.0); MEAN CORPUSCULAR HGB CONC 35.4 g/dl (31.0-37.0); MEAN PLATELET VOLUME 10.6 fl (7.0-11.0); MONO # 0.6 (0.1-0.6); MONO % 8.7 % (1.0-6.0); RBC 4.3 10^6/uL (3.5-6.1); RED CELL DISTRIBUTION WIDTH 14.4 % (11.5-14.5); WHITE BLOOD COUNT 6.8 10^3/ul (4.5-11.0)
[2017-06-15 13:18] LABS: TROPONIN I < 0.01 ng/mL
[2017-06-15 13:25] LABS: ALB/GLOB RATIO 1.1 (1.1-1.8); ALBUMIN 3.7 g/dL (3.0-4.8); ALT/SGPT 84 U/L (7-56); AST/SGOT 58 U/L (14-36); BLOOD UREA NITROGEN 13 mg/dL (7-21); CALCIUM 9.6 mg/dL (8.4-10.5); GFR AFRICAN-AMERICAN > 60; GFR NON-AFRICAN AMERICAN > 60
[2017-06-15] MEDS ORDERED: Insulin Regular 1 UNITS/0.01 ML ML SC STA (13:35)
--- NOTE | 2017-06-15 13:46 | RAD ---
HISTORY: Chest pain COMPARISON: Comparison chest 05/02/2017 FINDINGS: Re- demonstrated is in situ right-sided PICC line tip in the SVC. LUNGS: No active pulmonary disease. PLEURA: No significant pleural effusion identified, no pneumothorax apparent. CARDIOVASCULAR: Normal. OSSEOUS STRUCTURES: Minor degenerative changes both shoulder girdles. VISUALIZED UPPER ABDOMEN: Normal. OTHER FINDINGS: None. IMPRESSION: No active disease.
--- NOTE | 2017-06-15 14:33 | CARD ---
APPROVED REPORT EKG Measurement Heart [id number] 118P3 [id number] <Conclusion> Normal sinus rhythm Minimal voltage criteria for LVH, may be normal variant Borderline ECG
[2017-06-15 15:05] VITALS: BP 124/71; PULSE 68; RESP 19
== END 2017-06-15 15:10 | disposition home or self-care (01) ==
LOC: ED 10:31
DX: E11.65 Type 2 diabetes mellitus with hyperglycemia (principal); R07.89 Other chest pain; M79.1 Myalgia

== ENCOUNTER 2017-07-17 09:58 | Day surgery (SDC) | payer MEDICARE, OTHER ==
[2017-07-12 13:31] VITALS: BMI 26.5
[2017-07-17 10:39] LABS: BASO # 0.03 K/mm3 (0.0-2.0); BASO % 0.5 % (0.0-3.0); EOS # 0.2 (0.0-0.7); EOS % 3.4 % (1.5-5.0); GRAN # 2.89 (1.4-6.5); GRAN % 48.7 % (50.0-68.0); HEMOGLOBIN 14.4 g/dL (12.0-16.0); LYMPH # 2.2 (1.2-3.4); LYMPH % 36.8 % (22.0-35.0); MEAN CELL VOLUME 98.6 fl (80.0-105.0); MEAN CORPUSCULAR HEMOGLOBIN 34.2 pg (25.0-35.0); MEAN CORPUSCULAR HGB CONC 34.7 g/dl (31.0-37.0); MEAN PLATELET VOLUME 10.8 fl (7.0-11.0); MONO # 0.6 (0.1-0.6); MONO % 10.6 % (1.0-6.0); RBC 4.21 10^6/uL (3.5-6.1); RED CELL DISTRIBUTION WIDTH 14.2 % (11.5-14.5); WHITE BLOOD COUNT 5.9 10^3/ul (4.5-11.0)
[2017-07-17 10:48] LABS: INR 1.17 (0.93-1.08); PARTIAL THROMBOPLASTIN TIME 28.3 Seconds (25.1-36.5); PROTHROMBIN TIME 13.5 SECONDS (9.4-12.5)
[2017-07-17 11:01] LABS: BLOOD UREA NITROGEN 15 mg/dL (7-21); CALCIUM 9.7 mg/dL (8.4-10.5); GFR AFRICAN-AMERICAN > 60; GFR NON-AFRICAN AMERICAN > 60
[2017-07-17] MEDS ORDERED: Lidocaine 2% Inj (20ml) ONE (12:15)
[2017-07-17] MEDS ORDERED: Midazolam 2 MG/2 ML VIAL ONE (12:16)
[2017-07-17] MEDS ORDERED: Iodixanol 320 mg/ml 150 ml Bottle IV ONE (12:16)
[2017-07-17] MEDS ORDERED: Nitroglycerin 50mg in D5W 50 MG/250 ML BOTTLE IV ONE (12:17)
[2017-07-17] MEDS ORDERED: HEPARIN SODIUM/NS 2,000 ML IV ONE (12:17)
[2017-07-17] MEDS ORDERED: Iodixanol 320 MG/ML 200 ML BOTTLE IV ONE (12:17)
[2017-07-17] MEDS ORDERED: HEPARIN SODIUM/NS 1,000 ML IV ONE (13:26)
[2017-07-17] MEDS ORDERED: Oxycodone/Acetaminophen 5/325 mg Tab PO PRN (13:49)
[2017-07-17] MEDS ORDERED: Sodium Chloride 0.45% 1,000 ML IV SCH (14:00)
[2017-07-17 14:50] VITALS: RESP 18; TEMP 98.1
[2017-07-17 16:18] VITALS: O2SAT 98
[2017-07-17 17:15] VITALS: BP 138/76; PULSE 70
--- NOTE | 2017-07-17 17:38 | VASCULAR ---
PROCEDURE: 1. Abdominal aortogram and bilateral lower extremity runoff. 2. Left common iliac artery origin angioplasty and stent placement HISTORY: Peripheral vascular disease. Short distance right lower extremity claudication. 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 TECHNIQUE: The relative risks and indications of the procedure were explained to the patient and consent obtained. The patient was hydrated prior to the procedure and the appropriate labs drawn. The patient was placed supine on the arteriogram table and the right groin prepped and draped in the usual sterile fashion. Conscious sedation and monitoring were provided throughout the procedure by a nurse. Under ultrasound guidance, the right common femoral artery was punctured with a micropuncture set. A 5 Malaysian sheath was placed. Through the sheath and over a guidewire, a 5 Malaysian flush catheter was placed in the abdominal aorta at the level of the renal arteries and a PA DSA abdominal aortogram performed. The catheter was pulled down to the aortic bifurcation and bilateral oblique DSA pelvic arteriograms performed. Overlapping bilateral lower extremity DSA arteriograms were obtained from the inguinal ligaments to the trifurcation. 0.035 Delgado wire was placed the thoracic aorta. A 6 Malaysian 25 cm sheath was placed the terminal aorta. Pull-back pressures across the right common iliac artery origin were performed. This revealed 20-30 mm gradient across right common iliac artery origin. Next an 8 mm x 27 mm balloon expandable stent was deployed at the origin of the right common iliac artery. Pull-back pressures revealed no gradient. Completion angiograms were performed. The sheath was removed hemostasis obtained with a Mynx device. The patient tolerated the procedure well. FINDINGS: There are single renal arteries bilaterally which are widely patent and normal in appearance. The nephrograms are symmetric in appearance. The infrarenal abdominal aorta is widely patent without a radiographically significant stenosis. There is a smooth stenosis with localized dissection is seen at the origin of the right common iliac artery. The origin left common iliac artery is normal. Anger of the common iliac arteries are normal. The external iliac arteries and internal iliac arteries are normal. The infrainguinal runoff bilaterally is normal from the groins to the trifurcation IMPRESSION: 1.Focal right common iliac artery origin stenosis. 2. Successful angioplasty and stent placement in the right common iliac artery origin
== END 2017-07-17 18:00 | disposition home or self-care (01) ==
LOC: SDSVAS 09:58
PROVIDERS: ATTEND Radiology Vascular & Interventional Radiology
DX: I70.211 Atherosclerosis of native arteries of extremities with intermittent claudication, right leg (principal); I70.8 Atherosclerosis of other arteries
CPT/HCPCS: 36415; 37221; 75625; 75716; 80048; 85025; 85610; 85730; 99152; 99153; C1760; C1769 ×2; C1876; C1887; C1894 ×3; J0690; J1644 ×2; J2250; J2405; J3010; J7030 ×2

== ENCOUNTER 2017-08-18 18:08 | Emergency (ER) | payer MEDICARE, OTHER ==
[2017-08-18 18:09] VITALS: BMI 26.5
[2017-08-18 18:31] VITALS: TEMP 98.5; O2SAT 98
[2017-08-18] MEDS ORDERED: Sodium Chloride 0.9% 1,000 ML IV STA (19:21)
--- NOTE | 2017-08-18 19:33 | ED PDOC ---
Arrival/HPI - General Chief Complaint: Back Pain Time Seen by Provider: 08/18/17 19:10 Historian: Patient - History of Present Illness Narrative History of Present Illness (Text): 08/18/17 19:25 65F pmhx significant for nephrolithiasis, CRC s/p colon resection in 2010 on chemotherapy [place] [facility] [place]/ sharp and pressure like, left flank pain that remains constant, worse w/ walking and movement w/ arms, better with laying down started yesterday. There were no instigating factors. Patient states that pain feels similar multiple years ago when she had kidney stones. Pain associated w/ some nausea, denies vomiting. Pain does not radiate down to the groin. No changes in urinary frequency, pain w/ urination, or blood in urine. Denies Bowel or urinary incontinence. 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, nephrolithiasis, DM, seizures, PVD PSH: colon resection, cholecystectomy, hysterectomy, LE Angioplasty ALL: NKDA SocialHx: denies tobacco, etoh, recreational drug use PMD: [place] Heme/Onc: [place] Time/Duration: < week Symptom Course: Unchanged Quality: Aching, Pressure Activities at Onset: Rest Context: Walking Past Medical History - Provider Review Nursing Documentation Reviewed: Yes - Travel History Have you recently traveled outside [place] w/in the past 3 mons?: No - Past History Past History: Non-Contributing - Infectious Disease Hx of Infectious Diseases: None - Tetanus Immunization Tetanus Immunization: Unknown - Past Medical History Past Medical History: No Previous - Cardiac Hx Cardiac Disorders: Yes Other/Comment: CHEST PAIN - Pulmonary Hx Respiratory Disorders: Yes Hx Asthma: Yes - Neurological Hx Neurological Disorder: Yes Hx Headaches: Yes - HEENT Hx HEENT Disorder: No - Renal Hx Renal Disorder: Yes Hx Kidney Stones: Yes (cystoscopy with stent) Other/Comment: lithotripsy - Endocrine/Metabolic Hx Endocrine Disorders: Yes Hx Diabetes Mellitus Type 2: Yes - Hematological/Oncological Hx Blood Disorders: No - Integumentary Hx Dermatological Disorder: No - Musculoskeletal/Rheumatological Hx Musculoskeletal Disorders: No - Gastrointestinal Hx Gastrointestinal Disorders: Yes Other/Comment: colorectal cancer - Genitourinary/Gynecological Hx Genitourinary Disorders: Yes Hx Ovarian Cancer: Yes - Psychiatric Hx Psychophysiologic Disorder: Yes Hx Anxiety: Yes Hx Substance Use: No - Surgical History Hx Appendectomy: Yes Hx Cholecystectomy: Yes Hx Hysterectomy: Yes Other/Comment: CYSTOSCOPY - Anesthesia Hx Anesthesia Reactions: No Hx Malignant Hyperthermia: No - Suicidal Assessment Feels Threatened In Home Enviroment: No Family/Social History - Physician Review Nursing Documentation Reviewed: Yes Family/Social History: Neoplasm/Cancer Smoking Status: Former Smoker Hx Alcohol Use: No Hx Substance Use: No Hx Substance Use Treatment: No Allergies/Home Meds Allergies/Adverse Reactions: Allergies No Known Allergies Allergy (Verified 08/18/17 18:23) Home Medications: Home Meds Medication Instructions Recorded Confirmed Levetiracetam [Keppra] 750 mg PO BID 05/02/17 08/18/17 Metformin HCl [Glucophage] 1,000 mg PO BID 05/02/17 08/18/17 carBAMazepine [Tegretol] 250 mg PO BID 05/02/17 08/18/17 Capecitabine [Capecitabine] 500 mg PO BID 06/11/17 08/18/17 Review of Systems - Physician Review All systems were reviewed & negative as marked: Yes - Review of Systems Constitutional: Normal. absent: Fevers, Night Sweats Eyes: Normal. absent: Vision Changes ENT: Normal. absent: Hearing Changes, Tinnitus Cardiovascular: Normal. absent: Chest Pain, Palpitations, Edema Gastrointestinal: Normal. absent: Abdominal Pain, Vomiting Musculoskeletal: Back Pain. absent: Joint Swelling Skin: Normal. absent: Rash, Pruritis Neurological: Normal. absent: Headache, Dizziness, Focal Weakness Endocrine: Normal. absent: Polyuria Physical Exam Vital Signs Reviewed: Yes Vital Signs Temp Pulse Resp BP Pulse Ox 08/18/17 18:29 98.5 F 76 16 133/61 98 Temperature: Afebrile Blood Pressure: Normal Pulse: Regular Respiratory Rate: Normal Appearance: Positive for: Well-Appearing, Non-Toxic, Comfortable Mental Status: Positive for: Alert and Oriented X 3 - Systems Exam Head: Present: Atraumatic, Normocephalic Pupils: Present: PERRL Extroacular Muscles: Present: EOMI. No: Gaze Palsy Conjunctiva: Present: Normal Mouth: Present: Moist Mucous Membranes Neck: Present: Normal Range of Motion Respiratory/Chest: Present: Clear to Auscultation, Good Air Exchange. No: Respiratory Distress, Accessory Muscle Use Cardiovascular: Present: Regular Rate and Rhythm, Normal S1, S2. No: Murmurs Abdomen: No: Tenderness, Distention, Peritoneal Signs, Rebound Back: Present: CVA Tenderness (left CVA tenderness), Other (no signs of skin changes. Join above and below WNL) Lower Extremity: Present: Normal ROM. No: Edema, CALF TENDERNESS, NORMAL PULSES , Tenderness Neurological: Present: GCS=15, CN II-XII Intact Skin: Present: Warm Psychiatric: Present: Alert, Oriented x 3 Medical Decision Making ED Course and Treatment: 08/18/17 19:38 Workup for lowback, left flank pain nephrolithiasis vs MSK current working diagnosis CBC/CMP/Coag UA/culture CT Abd/Pelvis no contrast zofran pain control IVF 08/18/17 20:30 Glucose > 400; bolus additional 500cc of fluid 08/18/17 23:08 POC rechecked, glucose 322, rechecked < 300 Pain re-evaluated: about the same, was worse when hands are extended up and deep inspiration indicating MSK Urinalysis negative Re-evaluation Time: 22:45 (Pain remains the same. however pain was exasterbated when hands went up in the air during CT scan) - Lab Interpretations Lab Results: 08/18/17 20:08 08/18/17 20:08 Lab Results 08/19/17 00:19: POC Glucose (mg/dL) 275 H 08/18/17 23:40: Urine Color Yellow, Urine Appearance Clear, Urine pH 6.5, Ur Specific [place] 1.015, Urine Protein Negative, Urine Glucose (UA) >=1000, Urine Ketones Negative, Urine Blood Trace-intact H, Urine Nitrate Negative, Urine Bilirubin Negative, Urine Urobilinogen 0.2, Ur Leukocyte Esterase Negative , Urine RBC 0 - 2, Urine WBC 0 - 2, Ur Epithelial Cells 1 - 3, Urine Bacteria Rare 08/18/17 21:37: POC Glucose (mg/dL) 322 H 08/18/17 20:08: Sodium 133, Potassium 4.3, Chloride 98, Carbon Dioxide 26, Anion Gap 13, BUN 14, Creatinine 0.8, Est GFR ( Amer) > 60, Est GFR (Non- Af Amer) > 60, Random Glucose 445 H* D, Calcium 9.4, Total Bilirubin 0.9, AST 97 H D, ALT 83 H, Alkaline Phosphatase 146 H, Total Protein 6.7, Albumin 3.5, Globulin 3.3, Albumin/Globulin Ratio 1.1 08/18/17 20:08: PT 13.8 H, INR 1.21 H, APTT 27.3 08/18/17 20:08: WBC 6.3, RBC 3.85, Hgb 13.3, Hct 37.6, MCV 97.7, MCH 34.5, MCHC 35.4, RDW 14.1, Plt Count 96 L, MPV 10.4, Gran % 48.0 L, Lymph % (Auto) 39.4 H, [place] % (Auto) 8.6 H, Eos % (Auto) 3.5, Baso % (Auto) 0.5, Gran # 3.03, Lymph # ( Auto) 2.5, [place] # (Auto) 0.5, Eos # (Auto) 0.2, Baso # (Auto) 0.03 - RAD Interpretation Radiology Orders: 08/18/17 19:40 ABD & PELVIS W/O PO OR IV CONT [CT] Stat - Medication Orders Current Medication Orders: Discontinued Medications Acetaminophen (Tylenol 325mg Tab) 975 mg PO STAT STA Stop: 08/18/17 19:24 Last Admin: 08/18/17 20:28 Dose: 975 mg Sodium Chloride (Sodium Chloride 0.9%) 1,000 mls @ 999 mls/hr IV .Q1H1M STA Stop: 08/18/17 20:21 Last Admin: 08/18/17 20:28 Dose: 999 mls/hr eMAR Start Stop Document 08/18/17 20:28 SS (Rec: 08/18/17 20:28 SS [id number]) Intravenous Solution Start Date 08/18/17 Start Time 20:28 End Date 08/18/17 End time 21:28 Total Infusion Time 60 Sodium Chloride (Sodium Chloride 0.9%) 500 mls @ 9,999 mls/hr IV .Q3M RASHEEDA Stop: 08/18/17 21:02 Last Admin: 08/18/17 21:46 Dose: 9,999 mls/hr eMAR Start Stop Document 08/18/17 21:46 SS (Rec: 08/18/17 21:46 SS [id number]) Intravenous Solution Start Date 08/18/17 Start Time 21:46 Sodium Chloride (Sodium Chloride 0.9%) 500 mls @ 999 mls/hr IV .Q31M STA Stop: 08/18/17 22:07 Ondansetron HCl (Zofran Inj) 4 mg IVP STAT STA Stop: 08/18/17 19:22 Last Admin: 08/18/17 20:28 Dose: 4 mg IVP Administration Document 08/18/17 20:28 SS (Rec: 08/18/17 20:28 SS [id number]) Charges for Administration # of IVP Administrations 1 - PA / [employer] / Resident Statement / has reviewed & agrees with the documentation as recorded. / has examined the patient and agrees with the treatment plan. Disposition/Present on Arrival - Present on Arrival Any Indicators Present on Arrival: No History of DVT/PE: No History of Uncontrolled Diabetes: Yes Urinary Catheter: No History of Decub. Ulcer: No History Surgical Site Infection Following: None - Disposition Have Diagnosis and Disposition been Completed?: Yes Diagnosis: Musculoskeletal pain, Back pain, Nephrolithiasis Disposition: HOME/ ROUTINE Disposition Time: 23:54 Patient Plan: Discharge Patient Problems: Current Active Problems Problem Status Onset Back pain Acute Musculoskeletal pain Acute Condition: GOOD Discharge Instructions (ExitCare): Upper Back Pain (DC) Additional Instructions: Small lung nodules are identified within the right lower lobe and right middle lobe. One of the larger nodules measures 4-5 mm stable in size. There is an increase in number of nodules compared to the prior study. There is bilateral renal pelviectasis, without an obstructing calculus. Mild periureteral stranding is visualized bilaterally, which may be inflammatory or due to recent passage of stone. Recommend following up w/ Primary care physician, urology, and Heme/Onc physician. In addition drink plenty of fluids and can take Flexeril flank musculosketal pain persists Forms: [employer] (Frisian)
[2017-08-18 20:18] LABS: BASO # 0.03 K/mm3 (0.0-2.0); BASO % 0.5 % (0.0-3.0); EOS # 0.2 (0.0-0.7); EOS % 3.5 % (1.5-5.0); GRAN # 3.03 (1.4-6.5); HEMOGLOBIN 13.3 g/dL (12.0-16.0); LYMPH # 2.5 (1.2-3.4); LYMPH % 39.4 % (22.0-35.0); MEAN CELL VOLUME 97.7 fl (80.0-105.0); MEAN CORPUSCULAR HEMOGLOBIN 34.5 pg (25.0-35.0); MEAN CORPUSCULAR HGB CONC 35.4 g/dl (31.0-37.0); MEAN PLATELET VOLUME 10.4 fl (7.0-11.0); MONO # 0.5 (0.1-0.6); MONO % 8.6 % (1.0-6.0); RBC 3.85 10^6/uL (3.5-6.1); RED CELL DISTRIBUTION WIDTH 14.1 % (11.5-14.5); WHITE BLOOD COUNT 6.3 10^3/ul (4.5-11.0)
[2017-08-18 20:34] LABS: INR 1.21 (0.93-1.08); PARTIAL THROMBOPLASTIN TIME 27.3 Seconds (25.1-36.5); PROTHROMBIN TIME 13.8 SECONDS (9.4-12.5)
[2017-08-18 20:42] LABS: ALB/GLOB RATIO 1.1 (1.1-1.8); ALBUMIN 3.5 g/dL (3.0-4.8); ALT/SGPT 83 U/L (7-56); AST/SGOT 97 U/L (14-36); BLOOD UREA NITROGEN 14 mg/dL (7-21); CALCIUM 9.4 mg/dL (8.4-10.5); GFR AFRICAN-AMERICAN > 60; GFR NON-AFRICAN AMERICAN > 60
[2017-08-18] MEDS ORDERED: Sodium Chloride 0.9% 500 ML IV SCH (21:00)
[2017-08-18] MEDS ORDERED: Sodium Chloride 0.9% 500 ML IV STA (21:37)
--- NOTE | 2017-08-18 23:39 | CT ---
EXAM: CT Abdomen and Pelvis Without Intravenous Contrast EXAM DATE/TIME: 08/18/2017 7:40 PM CLINICAL HISTORY: The patient age is 66 years old and is female; Pain; Abdominal pain; Flank; Left; Prior surgery; Surgery date: 6+ months; Surgery type: HX appendectomy, HX cholecystectomy, HX hysterectomy; Patient HX: HX ovarian ca, HX colorectal per pt in remission; Additional info: Lbp; Focus lumbar and kidney Facility exam id and description: Ct abdpelscon abd pelvis w/o po or iv cont TECHNIQUE: Axial computed tomography images of the abdomen and pelvis without intravenous contrast. All CT scans at this facility use one or more dose reduction techniques, viz.: automated exposure control; ma/kV adjustment per patient size (including targeted exams where dose is matched to indication; i.e. head); or iterative reconstruction technique. Coronal and sagittal reformatted images were created and reviewed. COMPARISON: CT - ABD PELVIS W/O PO OR IV CONT 2017-04-03 00:34 FINDINGS: Lower thorax: Small lung nodules are identified within the right lower lobe and right middle lobe. One of the larger nodules measures 4-5 mm on series 5 image 17 within the right lower lobe, which is stable in size. There is an increase in number of nodules compared to the prior study. There is a small hiatal hernia. Atelectatic changes are identified at the right lung base. ABDOMEN: Liver: No mass. Gallbladder and bile ducts: Surgical clips are identified within the gallbladder fossa, compatible with cholecystectomy. Pancreas: Normal contour. No ductal dilation. Spleen: No splenomegaly. Adrenals: No mass. Kidneys and ureters: Small nonobstructing left renal calculi are visualized. There is bilateral renal pelviectasis, without an obstructing calculus. Mild periureteral stranding is visualized bilaterally, which may be inflammatory or due to recent passage of stone. Stomach and bowel: Postoperative changes are visualized involving the sigmoid colon. Distal to the postoperative changes, there is significant narrowing of the sigmoid colon. This may be contribute by peristalsis, although a stricture cannot be excluded. There is moderate fecal material within the colon. There is no significant small bowel distention. Appendix: The appendix is not visualized. PELVIS: Bladder: The bladder is distended. No stones. Reproductive: The uterus is absent. ABDOMEN and PELVIS: Intraperitoneal space: No free air. Bones/joints: Hypertrophic degenerative changes are noted within the spine. There is mild convexity of the lumbar spine to the right. Vasculature: Atherosclerotic changes are visualized of the aorta and iliac arteries. A right common iliac artery stent is identified, which is new. No abdominal aortic aneurysm. Lymph nodes: No significant retroperitoneal or intrapelvic lymphadenopathy. IMPRESSION: 1. Small nonobstructing left renal calculi are visualized. There is bilateral renal pelviectasis, without an obstructing calculus. Mild periureteral stranding is visualized bilaterally, which may be inflammatory or due to recent passage of stone. 2. The bladder is distended. 3. Postoperative changes are visualized involving the sigmoid colon. Distal to the postoperative changes, there is significant narrowing of the sigmoid colon, which is new. This may be contribute by peristalsis, although a stricture cannot be excluded. This can be further evaluated with colonoscopy. 4. Small lung nodules are identified within the right lower lobe and right middle lobe. One of the larger nodules measures 4-5 mm on series 5 image 17 within the right lower lobe, which is stable in size. There is an increase in number of nodules compared to the prior study. A nonemergent chest CT is recommended. 5. Additional CT findings described above.
[2017-08-19] LABS: PH,URINE 6.5 (4.7-8.0); URINE BILIRUBIN NEGATIVE (NEGATIVE); URINE BLOOD TRACE-INTACT (NEGATIVE); URINE GLUCOSE (UA) >=1000 mg/dL (NEGATIVE); URINE LEUKOCYTE ESTERASE NEGATIVE Leu/uL (NEGATIVE); URINE NITRATE NEGATIVE (NEGATIVE); URINE PROTEIN NEGATIVE mg/dL (<30 mg/dL); URINE UROBILINOGEN 0.2 E.U./dL (<1 E.U./dL)
[2017-08-19 00:19] LABS: URINE APPEARANCE CLEAR (CLEAR); URINE COLOR YELLOW (YELLOW)
[2017-08-19 00:58] LABS: URINE RBC 0 - 2 /hpf (0-2)
[2017-08-19 00:59] LABS: URINE BACTERIA RARE (NEG); URINE WBC 0 - 2 /hpf (0-6)
[2017-08-19 01:32] VITALS: BP 130/71; PULSE 80; RESP 20
== END 2017-08-19 01:32 | disposition home or self-care (01) ==
LOC: ED 18:08
DX: N20.0 Calculus of kidney (principal); M79.1 Myalgia; M54.9 Dorsalgia, unspecified; E11.9 Type 2 diabetes mellitus without complications; Z87.891 Personal history of nicotine dependence
CPT/HCPCS: 74176; 80053; 81001; 82948; 85025; 85610; 85730; 87086; 96361; 96374; 99283; J2405; J7040

== ENCOUNTER 2017-10-21 09:02 | Emergency (ER) | payer MEDICARE, OTHER ==
[2017-10-21 09:07] VITALS: BMI 27.8
[2017-10-21 09:17] VITALS: BP 123/61; TEMP 98.5; O2SAT 98
--- NOTE | 2017-10-21 09:53 | ED PDOC ---
Arrival/HPI <Marti Rosario - Last Filed: 10/21/17 11:10> - History of Present Illness Time/Duration: < week Symptom Onset: Sudden Symptom Course: Unchanged <Lukasz Diaz DO - Last Filed: 10/21/17 18:19> - General Chief Complaint: Cough, Cold, Congestion Time Seen by Provider: 10/21/17 09:32 - History of Present Illness Narrative History of Present Illness (Text): 10/21/17 09:57 Patient is a 66 year old female with a past medical history of colon and ovarian cancer (currently on chemo), diabetes, and asthma who presents with dry cough of 5 days duration. Patient says she yesterday she started to have a sore throat and coughed up a small amount of bright red blood. She also admits to lightheadedness, body aches, chills, substernal chest pain x2 days, and exertional dyspnea. She denies nasal congestion, headache, fever, palpitations. (Marti Rosario) Past Medical History - Past History Past History: Non-Contributing - Infectious Disease Hx of Infectious Diseases: None - Tetanus Immunization Tetanus Immunization: Unknown - Past Medical History Past Medical History: No Previous - Cardiac Hx Cardiac Disorders: Yes Other/Comment: CHEST PAIN - Pulmonary Hx Respiratory Disorders: Yes Hx Asthma: Yes - Neurological Hx Neurological Disorder: Yes Hx Headaches: Yes - HEENT Hx HEENT Disorder: No - Renal Hx Renal Disorder: Yes Hx Kidney Stones: Yes (cystoscopy with stent) Other/Comment: lithotripsy - Endocrine/Metabolic Hx Endocrine Disorders: Yes Hx Diabetes Mellitus Type 2: Yes - Hematological/Oncological Hx Blood Disorders: No - Integumentary Hx Dermatological Disorder: No - Musculoskeletal/Rheumatological Hx Musculoskeletal Disorders: No - Gastrointestinal Hx Gastrointestinal Disorders: Yes Other/Comment: colorectal cancer - Genitourinary/Gynecological Hx Genitourinary Disorders: Yes Hx Ovarian Cancer: Yes - Psychiatric Hx Psychophysiologic Disorder: Yes Hx Anxiety: Yes Hx Substance Use: No - Surgical History Hx Appendectomy: Yes Hx Cholecystectomy: Yes Hx Hysterectomy: Yes Other/Comment: CYSTOSCOPY - Anesthesia Hx Anesthesia Reactions: No Hx Malignant Hyperthermia: No - Suicidal Assessment Feels Threatened In Home Enviroment: No <Marti Rosario - Last Filed: 10/21/17 11:10> - Provider Review Nursing Documentation Reviewed: Yes <Lukasz Diaz DO - Last Filed: 10/21/17 18:19> Family/Social History Smoking Status: Former Smoker Hx Alcohol Use: No Hx Substance Use: No Hx Substance Use Treatment: No <Marti Rosario - Last Filed: 10/21/17 11:10> - Physician Review Nursing Documentation Reviewed: Yes Family/Social History: Unknown Family HX <Lukasz Diaz DO - Last Filed: 10/21/17 18:19> Allergies/Home Meds <Marti Rosario - Last Filed: 10/21/17 11:10> <Lukasz Diaz DO - Last Filed: 10/21/17 18:19> Allergies/Adverse Reactions: Allergies No Known Allergies Allergy (Verified 10/21/17 09:19) Home Medications: Home Meds Medication Instructions Recorded Confirmed Levetiracetam [Keppra] 750 mg PO BID 05/02/17 10/21/17 Metformin HCl [Glucophage] 1,000 mg PO BID 05/02/17 10/21/17 carBAMazepine [Tegretol] 250 mg PO BID 05/02/17 10/21/17 Capecitabine [Capecitabine] 500 mg PO BID 06/11/17 10/21/17 Review of Systems - Review of Systems Constitutional: Fatigue. absent: Fevers Eyes: Normal ENT: Sore Throat. absent: Rhinorrhea, Sinus Congestion Respiratory: SOB, Cough. absent: Sputum, Wheezing Cardiovascular: Chest Pain, KHAN. absent: Palpitations, Edema, Calf Pain, Syncope Gastrointestinal: Nausea, Vomiting. absent: Abdominal Pain, Constipation, Diarrhea Genitourinary Female: absent: Dysuria, Frequency, Hematuria Musculoskeletal: Myalgias Skin: absent: Rash Neurological: absent: Headache Endocrine: absent: Diaphoresis <Marti Rosario - Last Filed: 10/21/17 11:10> Physical Exam - Systems Exam Head: Present: Atraumatic, Normocephalic Pupils: Present: PERRL Extroacular Muscles: Present: EOMI Conjunctiva: Present: Normal Mouth: Present: Moist Mucous Membranes Pharnyx: No: ERYTHEMA, EXUDATE Nose (Internal): Present: Normal Inspection. No: Rhinorrhea Neck: Present: Normal Range of Motion Respiratory/Chest: Present: Clear to Auscultation, Good Air Exchange. No: Respiratory Distress, Accessory Muscle Use, Wheezes, Rales, Rhonchi Cardiovascular: Present: Regular Rate and Rhythm, Normal S1, S2. No: Murmurs Abdomen: Present: Normal Bowel Sounds. No: Tenderness, Distention, Peritoneal Signs Upper Extremity: Present: Normal Inspection, Other (portacath in right arm) Lower Extremity: Present: Normal Inspection. No: Edema, CALF TENDERNESS Neurological: Present: GCS=15, Speech Normal Skin: Present: Warm, Dry, Normal Color. No: Rashes Psychiatric: Present: Alert, Oriented x 3, Normal Insight, Normal Concentration <Marti Rosario - Last Filed: 10/21/17 11:10> Vital Signs Reviewed: Yes Temperature: Afebrile Blood Pressure: Normal Pulse: Regular Respiratory Rate: Normal Appearance: Positive for: Well-Appearing, Non-Toxic, Comfortable Pain Distress: None Mental Status: Positive for: Alert and Oriented X 3 <Lukasz Diaz DO - Last Filed: 10/21/17 18:19> Vital Signs Temp Pulse Resp BP Pulse Ox 10/21/17 11:50 74 18 98 10/21/17 11:49 75 19 98 10/21/17 09:17 98.5 F 90 18 123/61 98 Medical Decision Making <Marti Rosario - Last Filed: 10/21/17 11:10> - EKG Interpretation Interpreted by ED Physician: Yes Type: 12 lead EKG <Lukasz Diaz DO - Last Filed: 10/21/17 18:19> ED Course and Treatment: 10/21/17 Plan: -- EKG -- Glucophage -- Reassess and disposition Progress Notes: In agreement with resident note, which includes further HPI details. Patient was seen and evaluated with resident, came up with plan and treatment together. (Lukasz Diaz DO) - Lab Interpretations Lab Results: 10/21/17 10:00 10/21/17 10:00 Lab Results 10/21/17 10:56: Influenza Typ A,B (EIA) Negative for flu a/b 10/21/17 10:00: Sodium 138, Potassium 4.0, Chloride 103, Carbon Dioxide 26, Anion Gap 12, BUN 12, Creatinine 0.7, Est GFR ( Amer) > 60, Est GFR (Non- Af Amer) > 60, Random Glucose 365 H*, Calcium 8.5, Total Bilirubin 1.0, AST 97 H , ALT 99 H, Alkaline Phosphatase 152 H, Lactate Dehydrogenase 537, Total Creatine Kinase 85, Troponin I < 0.01, Total Protein 6.7, Albumin 3.6, Globulin 3.1, Albumin/Globulin Ratio 1.1 10/21/17 10:00: WBC 7.8 D, RBC 3.98, Hgb 13.8, Hct 37.4, MCV 94.0 D, MCH 34.7 , MCHC 36.9, RDW 14.2, Plt Count 103 L, MPV 9.9, Gran % 55.4, Lymph % (Auto) 30.7, [place] % (Auto) 10.2 H, Eos % (Auto) 3.3, Baso % (Auto) 0.4, Gran # 4.32, Lymph # (Auto) 2.4, [place] # (Auto) 0.8 H, Eos # (Auto) 0.3, Baso # (Auto) 0.03 - RAD Interpretation Radiology Orders: 10/21/17 09:54 CXR [CHEST TWO VIEWS (PA/LAT)] [RAD] Stat - Medication Orders Current Medication Orders: Discontinued Medications Sodium Chloride (Sodium Chloride 0.9%) 500 mls @ 999 mls/hr IV .Q31M STA Stop: 10/21/17 11:28 Last Admin: 10/21/17 11:17 Dose: 999 mls/hr eMAR Start Stop Document 10/21/17 11:17 [email or web address] (Rec: 10/21/17 11:17 [email or web address] [id number]) Intravenous Solution Start Date 10/21/17 Start Time 11:17 End Date 10/21/17 Metformin HCl (Glucophage) 1,000 mg PO STAT STA Stop: 10/21/17 10:49 Last Admin: 10/21/17 11:04 Dose: 1,000 mg - PA / CALIBRATION ENGINEER / Resident Statement ZACH has reviewed & agrees with the documentation as recorded. ZACH has examined the patient and agrees with the treatment plan. <Marti Rosario - Last Filed: 10/21/17 11:10> - PA / CALIBRATION ENGINEER / Resident Statement ZACH has reviewed & agrees with the documentation as recorded. ZACH has examined the patient and agrees with the treatment plan. - Scribe Statement The provider has reviewed the documentation as recorded by the Scribe <Lukasz Diaz DO - Last Filed: 10/21/17 18:19> - Scribe Statement Yola Burdickdua Provider Scribe Attestation: All medical record entries made by the Scribe were at my direction and personally dictated by me. I have reviewed the chart and agree that the record accurately reflects my personal performance of the history, physical exam, medical decision making, and the department course for this patient. I have also personally directed, reviewed, and agree with the discharge instructions and disposition. (Lukasz Diaz DO) Disposition/Present on Arrival - Present on Arrival History of DVT/PE: No History of Uncontrolled Diabetes: Yes Urinary Catheter: No History of Decub. Ulcer: No History Surgical Site Infection Following: None <Marti Rosario - Last Filed: 10/21/17 11:10> - Present on Arrival Any Indicators Present on Arrival: Yes - Disposition Have Diagnosis and Disposition been Completed?: Yes Disposition Time: 11:00 <Lukasz Diaz DO - Last Filed: 10/21/17 18:19> - Disposition Diagnosis: Viral syndrome, Hyperglycemia Disposition: HOME/ ROUTINE Condition: IMPROVED Discharge Instructions (ExitCare): Hyperglycemia, Adult, Viral Syndrome (DC) Additional Instructions: Thank you for letting us take care of you today. The emergency medical care you received today was directed at your acute symptoms. If you were prescribed any medication, please fill it and take as directed. It may take several days for your symptoms to resolve. Return to the Emergency Department if your symptoms worsen, do not improve, or if you have any other problems. Please contact your doctor or call one of the physicians/clinics you have been referred to that are listed on the Patient Visit Information form that is included in your discharge packet. Bring any paperwork you were given at discharge with you along with any medications you are taking to your follow up visit. Our treatment cannot replace ongoing medical care by a primary care provider (PCP) outside of the emergency department. Thank you for allowing the [facility] team to be part of your care today. Follow up with your primary care doctor in 2-3 days for re-evaluation and further management. Prescriptions: Benzonatate [Tessalon Perle] 100 mg PO Q8 PRN #20 capsule PRN Reason: Cough Referrals: Lane Shea MD [Primary Care Provider] - Follow up with primary Forms: [employer] ([place])
--- NOTE | 2017-10-21 10:22 | RAD ---
HISTORY: cough, chest pain COMPARISON: 06/15/2017 TECHNIQUE: Chest PA and lateral FINDINGS: LUNGS: No active pulmonary disease. PLEURA: No significant pleural effusion identified. No pneumothorax apparent. CARDIOVASCULAR: Normal. OSSEOUS STRUCTURES: No significant abnormalities. VISUALIZED UPPER ABDOMEN: Normal. OTHER FINDINGS: None. IMPRESSION: No active disease.
[2017-10-21 10:31] LABS: BASO # 0.03 K/mm3 (0.0-2.0); BASO % 0.4 % (0.0-3.0); EOS # 0.3 (0.0-0.7); EOS % 3.3 % (1.5-5.0); GRAN # 4.32 (1.4-6.5); GRAN % 55.4 % (50.0-68.0); HEMOGLOBIN 13.8 g/dL (12.0-16.0); LYMPH # 2.4 (1.2-3.4); LYMPH % 30.7 % (22.0-35.0); MEAN CORPUSCULAR HEMOGLOBIN 34.7 pg (25.0-35.0); MEAN CORPUSCULAR HGB CONC 36.9 g/dl (31.0-37.0); MEAN PLATELET VOLUME 9.9 fl (7.0-11.0); MONO # 0.8 (0.1-0.6); MONO % 10.2 % (1.0-6.0); RBC 3.98 10^6/uL (3.5-6.1); RED CELL DISTRIBUTION WIDTH 14.2 % (11.5-14.5); WHITE BLOOD COUNT 7.8 10^3/ul (4.5-11.0)
[2017-10-21 10:32] LABS: ALB/GLOB RATIO 1.1 (1.1-1.8); ALBUMIN 3.6 g/dL (3.0-4.8); ALT/SGPT 99 U/L (7-56); AST/SGOT 97 U/L (14-36); BLOOD UREA NITROGEN 12 mg/dL (7-21); CALCIUM 8.5 mg/dL (8.4-10.5); GFR AFRICAN-AMERICAN > 60; GFR NON-AFRICAN AMERICAN > 60
[2017-10-21 10:34] LABS: TROPONIN I < 0.01 ng/mL
[2017-10-21] MEDS ORDERED: Sodium Chloride 0.9% 500 ML IV STA (10:58)
[2017-10-21 11:51] VITALS: PULSE 74; RESP 18
--- NOTE | 2017-10-21 15:01 | CARD ---
APPROVED REPORT EKG Measurement Heart [id number] IN 120P14 [id number] <Conclusion> Normal sinus rhythm Minimal voltage criteria for LVH, may be normal variant
== END 2017-10-21 11:53 | disposition home or self-care (01) ==
LOC: ED 09:02
DX: E11.65 Type 2 diabetes mellitus with hyperglycemia (principal); B34.9 Viral infection, unspecified
CPT/HCPCS: 71046; 80053; 82550; 83615; 84484; 85025; 87804; 93005; 99282; J7040

== ENCOUNTER 2018-01-06 16:40 | Observation (INO) | payer MEDICARE, OTHER ==
--- NOTE | 2018-01-06 17:50 | ED PDOC ---
Arrival/HPI - General Chief Complaint: Abdominal Pain Time Seen by Provider: 01/06/18 17:19 Historian: Patient - History of Present Illness Narrative History of Present Illness (Text): 01/06/18 17:46 67 year old female, whose past medical history includes colon and ovarian cancer , diabetes, asthma, osteoarthritis, and seizure disorder, who presents to the emergency department complaining of 3 episodes of substernal chest pain that radiates to the neck and left arm. Patient notes no associated symptoms. Patient denies any fever, chills, shortness of breath, nausea, vomiting, diarrhea, back pain, neck pain, headache, dizziness, or any other complaints. Time/Duration: Other (today) Symptom Onset: Sudden Symptom Course: Unchanged Activities at Onset: Light Context: Home Past Medical History - Provider Review Nursing Documentation Reviewed: Yes - Past History Past History: Non-Contributing - Infectious Disease Hx of Infectious Diseases: None - Tetanus Immunization Tetanus Immunization: Unknown - Reproductive Menopause: Yes - Past Medical History Past Medical History: No Previous - Cardiac Hx Cardiac Disorders: Yes Other/Comment: CHEST PAIN - Pulmonary Hx Respiratory Disorders: Yes Hx Asthma: Yes - Neurological Hx Neurological Disorder: Yes Hx Headaches: Yes - HEENT Hx HEENT Disorder: No - Renal Hx Renal Disorder: Yes Hx Kidney Stones: Yes (cystoscopy with stent) Other/Comment: lithotripsy - Endocrine/Metabolic Hx Endocrine Disorders: Yes Hx Diabetes Mellitus Type 2: Yes - Hematological/Oncological Hx Blood Disorders: No - Integumentary Hx Dermatological Disorder: No - Musculoskeletal/Rheumatological Hx Musculoskeletal Disorders: No - Gastrointestinal Hx Gastrointestinal Disorders: Yes Other/Comment: colorectal cancer - Genitourinary/Gynecological Hx Genitourinary Disorders: Yes Hx Ovarian Cancer: Yes - Psychiatric Hx Psychophysiologic Disorder: Yes Hx Anxiety: Yes Hx Substance Use: No - Surgical History Hx Appendectomy: Yes Hx Cholecystectomy: Yes Hx Hysterectomy: Yes Other/Comment: CYSTOSCOPY - Anesthesia Hx Anesthesia Reactions: No Hx Malignant Hyperthermia: No - Suicidal Assessment Feels Threatened In Home Enviroment: No Family/Social History - Physician Review Nursing Documentation Reviewed: Yes Family/Social History: Unknown Family HX Smoking Status: Former Smoker Hx Alcohol Use: No Hx Substance Use: No Hx Substance Use Treatment: No Allergies/Home Meds Allergies/Adverse Reactions: Allergies No Known Allergies Allergy (Verified 10/21/17 09:19) Home Medications: Home Meds Medication Instructions Recorded Confirmed Levetiracetam [Keppra] 750 mg PO BID 05/02/17 01/06/18 Metformin HCl [Glucophage] 1,000 mg PO BID 05/02/17 01/06/18 Capecitabine [Capecitabine] 500 mg PO BID 06/11/17 01/06/18 Enzetimib 10 mg PO DAILY 01/06/18 Simvastatin [Zocor] 20 mg PO DAILY 01/06/18 01/06/18 Review of Systems - Physician Review All systems were reviewed & negative as marked: Yes - Review of Systems Constitutional: Normal Eyes: Normal ENT: Normal Respiratory: Normal. absent: SOB, Cough Cardiovascular: Chest Pain (substernal chest pain radiating to neck and left arm ) Gastrointestinal: Normal. absent: Abdominal Pain, Diarrhea, Nausea, Vomiting Genitourinary Female: Normal. absent: Dysuria, Frequency Musculoskeletal: Normal. absent: Back Pain, Neck Pain Skin: Normal. absent: Rash Neurological: Normal. absent: Headache Endocrine: Normal Hemo/Lymphatic: Normal Psychiatric: Normal Physical Exam Vital Signs Reviewed: Yes Vital Signs Temp Pulse Resp BP Pulse Ox 01/06/18 17:54 64 142/86 01/06/18 17:17 98.8 F 64 18 122/78 98 Temperature: Afebrile Blood Pressure: Normal Pulse: Regular Respiratory Rate: Normal Appearance: Positive for: Well-Appearing, Non-Toxic, Comfortable Pain Distress: None Mental Status: Positive for: Alert and Oriented X 3 - Systems Exam Head: Present: Atraumatic, Normocephalic Pupils: Present: PERRL Extroacular Muscles: Present: EOMI Conjunctiva: Present: Normal Mouth: Present: Moist Mucous Membranes Neck: Present: Normal Range of Motion Respiratory/Chest: Present: Clear to Auscultation, Good Air Exchange. No: Respiratory Distress, Accessory Muscle Use Cardiovascular: Present: Regular Rate and Rhythm, Normal S1, S2. No: Murmurs Abdomen: No: Tenderness, Distention, Peritoneal Signs Back: Present: Normal Inspection Upper Extremity: Present: Normal Inspection. No: Cyanosis, Edema Lower Extremity: Present: Normal Inspection. No: Edema Neurological: Present: GCS=15, CN II-XII Intact, Speech Normal Skin: Present: Warm, Dry, Normal Color. No: Rashes Psychiatric: Present: Alert, Oriented x 3, Normal Insight, Normal Concentration Medical Decision Making ED Course and Treatment: 01/06/18 17:54 Impression: 67 year old female presents to the emergency department complaining of 3 episodes of substernal chest pain radiating to the neck and left arm. Plan: -- Cardiac Enzymes -- Chest X-ray -- Labs -- Aspirin -- Lopressor -- EKG -- Reassess and disposition Progress Notes: 01/06/18 18:37 Chest X-ray reviewed, shows: LUNGS: No active pulmonary disease. PLEURA: No significant pleural effusion identified, no pneumothorax apparent. CARDIOVASCULAR: Normal. OSSEOUS STRUCTURES: Unchanged. VISUALIZED UPPER ABDOMEN: Right lower quadrant surgical clips redemonstrated. OTHER FINDINGS: Right upper extremity PICC, unchanged. IMPRESSION: No active disease. 01/06/18 18:57 EKG reviewed, shows NSR 68 bpm. Left ventricular hypertrophy. - Lab Interpretations Lab Results: 01/06/18 17:50 01/06/18 17:50 Lab Results 01/06/18 17:50: Sodium 139, Potassium 4.1, Chloride 106, Carbon Dioxide 23, Anion Gap 14, BUN 14, Creatinine 0.7, Est GFR ( Amer) > 60, Est GFR (Non- Af Amer) > 60, Random Glucose 225 H, Calcium 8.6, Total Bilirubin 0.8, AST 68 H D, ALT 86 H, Alkaline Phosphatase 103, Lactate Dehydrogenase 573, Total Creatine Kinase 63, Troponin I < 0.01, Total Protein 6.8, Albumin 3.7, Globulin 3.1, Albumin/Globulin Ratio 1.2 01/06/18 17:50: PT 13.0 H, INR 1.14 H 01/06/18 17:50: WBC 8.0, RBC 4.04, Hgb 14.1, Hct 39.5, MCV 97.8 D, MCH 34.9, MCHC 35.7, RDW 15.2 H, Plt Count 116 L, MPV 10.5, Gran % 43.6 L, Lymph % (Auto) 45.9 H, [place] % (Auto) 6.9 H, Eos % (Auto) 3.1, Baso % (Auto) 0.5, Gran # 3.48, Lymph # (Auto) 3.7 H, [place] # (Auto) 0.6, Eos # (Auto) 0.3, Baso # (Auto) 0.04 - RAD Interpretation Radiology Orders: 01/06/18 17:41 CHEST PORTABLE [RAD] Stat - Medication Orders Current Medication Orders: Discontinued Medications Aspirin (Aspirin Chewable) 324 mg PO STAT STA Stop: 01/06/18 17:42 Last Admin: 01/06/18 17:54 Dose: 324 mg Metoprolol Tartrate (Lopressor) 25 mg PO STAT STA Stop: 01/06/18 17:42 Last Admin: 01/06/18 17:54 Dose: 25 mg MAR Pulse and Blood Pressure Document 01/06/18 17:54 GMD (Rec: 01/06/18 17:55 GMD [id number]) Pulse Pulse Rate (60-90) 64 Blood Pressure Blood Pressure (100/60-150/90) 142/86 - Scribe Statement The provider has reviewed the documentation as recorded by the Scribe Laura Jorge All medical record entries made by the Scribe were at my direction and personally dictated by me. I have reviewed the chart and agree that the record accurately reflects my personal performance of the history, physical exam, medical decision making, and the department course for this patient. I have also personally directed, reviewed, and agree with the discharge instructions and disposition. Disposition/Present on Arrival - Present on Arrival History of DVT/PE: No History of Uncontrolled Diabetes: Yes Urinary Catheter: No History of Decub. Ulcer: No History Surgical Site Infection Following: None - Disposition Forms: [employer] ([place])
[2018-01-06 18:04] LABS: BASO # 0.04 K/mm3 (0.0-2.0); BASO % 0.5 % (0.0-3.0); EOS # 0.3 (0.0-0.7); EOS % 3.1 % (1.5-5.0); GRAN # 3.48 (1.4-6.5); GRAN % 43.6 % (50.0-68.0); HEMOGLOBIN 14.1 g/dL (12.0-16.0); LYMPH # 3.7 (1.2-3.4); LYMPH % 45.9 % (22.0-35.0); MEAN CELL VOLUME 97.8 fl (80.0-105.0); MEAN CORPUSCULAR HEMOGLOBIN 34.9 pg (25.0-35.0); MEAN CORPUSCULAR HGB CONC 35.7 g/dl (31.0-37.0); MEAN PLATELET VOLUME 10.5 fl (7.0-11.0); MONO # 0.6 (0.1-0.6); MONO % 6.9 % (1.0-6.0); RBC 4.04 10^6/uL (3.5-6.1); RED CELL DISTRIBUTION WIDTH 15.2 % (11.5-14.5)
[2018-01-06 18:07] LABS: INR 1.14 (0.93-1.08)
[2018-01-06 18:11] LABS: ALB/GLOB RATIO 1.2 (1.1-1.8); ALBUMIN 3.7 g/dL (3.0-4.8); ALT/SGPT 86 U/L (7-56); AST/SGOT 68 U/L (14-36); BLOOD UREA NITROGEN 14 mg/dL (7-21); CALCIUM 8.6 mg/dL (8.4-10.5); GFR AFRICAN-AMERICAN > 60; GFR NON-AFRICAN AMERICAN > 60
--- NOTE | 2018-01-06 18:16 | RAD ---
Date of service: 01/06/2018 HISTORY: Chest Pain / ACS COMPARISON: Chest radiograph dated 10/21/2017. FINDINGS: LUNGS: No active pulmonary disease. PLEURA: No significant pleural effusion identified, no pneumothorax apparent. CARDIOVASCULAR: Normal. OSSEOUS STRUCTURES: Unchanged. VISUALIZED UPPER ABDOMEN: Right lower quadrant surgical clips redemonstrated. OTHER FINDINGS: Right upper extremity PICC, unchanged. IMPRESSION: No active disease.
[2018-01-06 18:22] LABS: TROPONIN I < 0.01 ng/mL
[2018-01-06 23:13] VITALS: BMI 28.1
[2018-01-06] MEDS ORDERED: Pneumococcal 23-Valent Vaccine IM ONE (23:13)
[2018-01-07 00:34] VITALS: O2SAT 100
[2018-01-07 06:53] VITALS: RESP 18
--- NOTE | 2018-01-07 09:57 | CON ---
DATE: 01/07/2018 CARDIOLOGY CONSULTATION HISTORY: The patient is a 67-year-old woman, who presents with similar symptoms late last year. She underwent cardiac catheterization that showed unremarkable coronary arteries with nonobstructive CAD. Her past medical history includes diabetes mellitus and hypercholesterolemia. Her symptoms are atypical and currently chest pain free. SOCIAL HISTORY: The patient does not smoke. REVIEW OF SYSTEMS: Fourteen-point review of systems is reviewed in detail. No cardiac symptoms are noted. PHYSICAL EXAMINATION: VITAL SIGNS: Stable. NECK: Negative JVD. LUNGS: Without rales. HEART: Reveals S1, S2. EXTREMITIES: Without edema. LABORATORY DATA: Laboratories includes an EKG that shows no acute changes. Troponins are negative. IMPRESSION: 1. Recurrent chest pain symptoms. 2. History of nonobstructive coronary artery disease on cardiac catheterization within the past year. 3. Diabetes mellitus. 4. Hypercholesterolemia. PLAN: Given these findings, no further cardiac workup is necessary. There is no evidence for acute coronary syndrome. We will discontinue telemetry today. The patient has been referred back to her primary care doctor for consideration for an outpatient workup for a noncardiac source of chest discomfort. Benjie Lovelace MD
[2018-01-07] MEDS ORDERED: Pantoprazole 40 mg EC Tab PO STA (10:52)
[2018-01-07] MEDS ORDERED: Naproxen 550 mg Tab PO STA (10:52)
[2018-01-07 12:14] VITALS: BP 128/67; PULSE 59; TEMP 97.8
--- NOTE | 2018-01-07 13:15 | HP ---
HISTORY OF PRESENT ILLNESS: The patient is 67 years old, came to emergency room because of chest discomfort, hurts more on taking deep breath. Also, complained of pain more with ambulation. The patient had cardiac cath done almost a year ago. It was found to be nonobstructive coronaries. Denies any nausea or vomiting. No history of fever. No chills. No abdominal discomfort. No hemoptysis. No hematemesis. Denies any trauma. No falls. PAST MEDICAL HISTORY: Significant for, 1. Hypertension. 2. Xpm-vabrfue-kexykpfnx diabetes. 3. Generalized osteoarthritis. 4. History of seizure disorder. ALLERGY: THE PATIENT IS NOT ALLERGIC TO ANY MEDICATIONS. MEDICATION AT HOME: The patient is on simvastatin 20 mg daily, metformin 1000 twice a day, Keppra 750 twice a day. She is on Vytorin and capecitabine. SOCIAL HISTORY: She lives with the boyfriend. Denies smoking or drinking. Used to be heavy smoker, but quit a couple of years ago. REVIEW OF SYSTEMS: Significant for chest discomfort, more on ambulation. PHYSICAL EXAMINATION: GENERAL: She is awake, alert, oriented, communicative. VITAL SIGNS: She is afebrile, pulse 60, respirations 18, blood pressure 113/64. LUNGS: Bilateral fair airflow. No rhonchi or crackle. HEART: S1 and S2 audible. ABDOMEN: Soft. Nontender. No rebound. No guarding. NEUROLOGICAL: She is awake, alert, oriented, communicative, nonfocal. EXTREMITIES: Bilateral leg, no edema. CHEST: She has palpable discomfort in the mid chest area. LABORATORY EXAM: WBC is 8, hemoglobin 14, hematocrit 39.5, platelet of 116, PT 13, INR 1.14. Chemistry: Sodium 139, potassium 4.1, chloride 106, CO2 of 23, BUN 14, creatinine 0.7, blood sugar 225, AST 68, ALT 86. EKG, normal sinus rhythm, low-voltage criteria. ASSESSMENT: 1. Noncardiac chest pain. 2. Costochondritis. 3. Ihj-jscxuiu-wrvibvspq diabetes. 4. Hypertension. 5. Hyperlipidemia. 6. History of seizure disorder. PLAN: We will give her a dose of Naproxen and Protonix 40 daily. Encourage ambulation. After an hour or two, she will be reevaluated and she will be discharged later on today. She will follow up with her primary care doctor, Dr. Modi. The patient was told that her LFTs are abnormal. She need workup as outpatient. She already has history of cholecystectomy. She denies drinking alcohol or overusing Tylenol. So this can be worked up as outpatient and I explained at length, she understands and will follow up with her primary care doctor. Kirstin Adhikari MD
--- NOTE | 2018-01-08 18:49 | CARD ---
APPROVED REPORT Date of service: 01/06/2018 EKG Measurement Heart [id number] [place] 122P23 [id number] <Conclusion> Normal sinus rhythm Voltage criteria for left ventricular hypertrophy Abnormal ECG
== END 2018-01-07 12:55 | disposition home or self-care (01) ==
LOC: ED 16:40 → ERH 20:14 → INTOOBSV 20:14 → ERH 20:33 → 2RNO 21:50
PROVIDERS: ADMIT Internal Medicine; ATTEND Internal Medicine
DX: M94.0 Chondrocostal junction syndrome [Tietze] (principal); I11.9 Hypertensive heart disease without heart failure; E11.9 Type 2 diabetes mellitus without complications; M15.9 Polyosteoarthritis, unspecified; G40.909 Epilepsy, unspecified, not intractable, without status epilepticus; I25.10 Atherosclerotic heart disease of native coronary artery without angina pectoris; E78.5 Hyperlipidemia, unspecified; E78.00 Pure hypercholesterolemia, unspecified; J45.909 Unspecified asthma, uncomplicated; Z79.84 Long term (current) use of oral hypoglycemic drugs; Z85.048 Personal history of other malignant neoplasm of rectum, rectosigmoid junction, and anus; Z85.43 Personal history of malignant neoplasm of ovary; Z87.442 Personal history of urinary calculi; Z87.891 Personal history of nicotine dependence; Z90.49 Acquired absence of other specified parts of digestive tract; Z90.710 Acquired absence of both cervix and uterus
CPT/HCPCS: 71045; 80053; 82550; 83615; 84484; 85025; 85610; 93005; 99283; G0378

== ENCOUNTER 2018-02-12 05:30 | Inpatient (IN) | payer MEDICARE, OTHER ==
[2018-02-12] MEDS ORDERED: Sodium Chloride 0.9% 1,000 ML IV STA (05:54)
--- NOTE | 2018-02-12 05:57 | ED PDOC ---
Arrival/HPI - General Chief Complaint: Back Pain Time Seen by Provider: 02/12/18 05:51 Historian: Patient - History of Present Illness Narrative History of Present Illness (Text): 02/12/18 05:54 67 year old female, with past medical history of colon and ovarian cancer, diabetes, asthma, osteoarthritis, and seizure disorder, presents to the Emergency department complaining of left sided flank pain radiating to his mid back since 1 hour. Patient describes a squeezing pain prompting him to present to the Emergency department for medical evaluation. Patient informs associated nausea but denies any fevers, chills, headache, dizziness, chest pain, shortness of breath, dyspnea on exertion, cough, vomiting, diarrhea, back pain, neck pain, or any other complaints. Time/Duration: 1 hour Symptom Onset: Gradual Symptom Course: Unchanged Quality: Pressure Activities at Onset: Light Context: Home Past Medical History - Provider Review Nursing Documentation Reviewed: Yes - Past History Past History: Non-Contributing - Infectious Disease Hx of Infectious Diseases: None - Tetanus Immunization Tetanus Immunization: Unknown - Past Medical History Past Medical History: No Previous - Cardiac Hx Cardiac Disorders: Yes (CAD) - Pulmonary Hx Respiratory Disorders: Yes (USED TO SMOKE CIGARETTES. QUIT 07-27-2009) - Neurological Hx Neurological Disorder: Yes Hx Headaches: Yes - HEENT Hx HEENT Disorder: No - Renal Hx Renal Disorder: Yes Hx Kidney Stones: Yes (cystoscopy with stent) Other/Comment: lithotripsy - Endocrine/Metabolic Hx Endocrine Disorders: Yes Hx Diabetes Mellitus Type 2: Yes - Hematological/Oncological Hx Blood Disorders: Yes - Integumentary Hx Dermatological Disorder: No - Musculoskeletal/Rheumatological Hx Musculoskeletal Disorders: No - Gastrointestinal Hx Gastrointestinal Disorders: Yes (RECTAL BLEED,APPENDECTOMY) - Genitourinary/Gynecological Hx Genitourinary Disorders: Yes (OVARIAM CA DXED 2014,HYSTERECTOMY) - Psychiatric Hx Psychophysiologic Disorder: Yes Hx Anxiety: Yes Hx Substance Use: No - Surgical History Hx Appendectomy: Yes Hx Cholecystectomy: Yes Hx Hysterectomy: Yes Other/Comment: CYSTOSCOPY - Anesthesia Hx Anesthesia Reactions: No Hx Malignant Hyperthermia: No - Suicidal Assessment Feels Threatened In Home Enviroment: No Family/Social History - Physician Review Nursing Documentation Reviewed: Yes Family/Social History: No Known Family HX Smoking Status: Former Smoker Hx Alcohol Use: No Hx Substance Use: No Hx Substance Use Treatment: No Allergies/Home Meds Allergies/Adverse Reactions: Allergies No Known Allergies Allergy (Verified 02/12/18 05:39) Home Medications: Home Meds Medication Instructions Recorded Confirmed Levetiracetam [Keppra] 750 mg PO BID 05/02/17 02/12/18 Metformin HCl [Glucophage] 1,000 mg PO BID 05/02/17 02/12/18 Capecitabine 500 mg PO BID 06/11/17 02/12/18 Ezetimibe/Simvastatin 10 mg PO DAILY 01/06/18 02/12/18 [Ezetimibe-Simvastatin 10-10 mg] Alirocumab [Praluent Pen] 150 mg SQ Q2W 02/12/18 02/12/18 Clopidogrel [Plavix] 75 mg PO DAILY 02/12/18 02/12/18 Dapagliflozin Propanediol [Farxiga] 10 mg PO DAILY 02/12/18 02/12/18 Ezetimibe [Zetia] 10 mg PO DAILY 02/12/18 02/12/18 Hydrocortisone 1% Cream [Cortizone 1 % TP DAILY 02/12/18 02/12/18 1% Cream] Insulin Detemir [Levemir] 20 unit SC HS 02/12/18 02/12/18 carBAMazepine [TEGretol] 200 mg PO BID 02/12/18 02/12/18 Review of Systems - Physician Review All systems were reviewed & negative as marked: Yes - Review of Systems Constitutional: absent: Fevers Respiratory: absent: SOB, Cough Cardiovascular: absent: Chest Pain, KHAN Gastrointestinal: Abdominal Pain (left flank pain), Nausea. absent: Diarrhea, Vomiting Musculoskeletal: absent: Back Pain, Neck Pain Neurological: absent: Headache, Dizziness Physical Exam Vital Signs Reviewed: Yes Vital Signs Temp Pulse Resp BP Pulse Ox 02/12/18 09:17 60 18 109/53 L 100 02/12/18 07:40 98.2 F 62 16 112/59 L 99 02/12/18 05:40 98.7 F 71 18 137/87 99 Temperature: Afebrile Blood Pressure: Normal Pulse: Regular Respiratory Rate: Normal Appearance: Positive for: Well-Appearing, Non-Toxic, Comfortable Pain Distress: None Mental Status: Positive for: Alert and Oriented X 3 - Systems Exam Head: Present: Atraumatic, Normocephalic Pupils: Present: PERRL Extroacular Muscles: Present: EOMI Conjunctiva: Present: Normal Mouth: Present: Moist Mucous Membranes Neck: Present: Normal Range of Motion Respiratory/Chest: Present: Clear to Auscultation, Good Air Exchange. No: Respiratory Distress, Accessory Muscle Use Cardiovascular: Present: Regular Rate and Rhythm, Normal S1, S2. No: Murmurs Abdomen: No: Tenderness, Distention, Peritoneal Signs Back: Present: Normal Inspection Upper Extremity: Present: Normal Inspection. No: Cyanosis, Edema Lower Extremity: Present: Normal Inspection. No: Edema Neurological: Present: GCS=15, CN II-XII Intact, Speech Normal Skin: Present: Warm, Dry, Normal Color. No: Rashes Psychiatric: Present: Alert, Oriented x 3, Normal Insight, Normal Concentration Medical Decision Making ED Course and Treatment: 02/12/18 05:59 Impression: 67 year old female presents to the Emergency department complaining of left flank pain. Plan: -- CT of abdomen/pelvis -- Labs -- IV fluids -- Toradol -- Zofran -- Urinalysis -- Reassess and disposition Prior Visits: Notes and results from previous visits were reviewed. Progress Notes: - Lab Interpretations Lab Results: 02/12/18 06:11 02/12/18 06:11 Lab Results 02/12/18 06:11: Sodium 143, Potassium 3.9, Chloride 107, Carbon Dioxide 24, Anion Gap 16, BUN 13, Creatinine 0.8, Est GFR ( Amer) > 60, Est GFR (Non- Af Amer) > 60, Random Glucose 178 H, Calcium 9.3, Total Bilirubin 0.6, AST 103 H D, ALT 70 H, Alkaline Phosphatase 115, Total Protein 6.9, Albumin 4.0, Globulin 2.9, Albumin/Globulin Ratio 1.4 02/12/18 06:11: Urine Color Yellow, Urine Appearance Slight-cloudy, Urine pH 6.0 , Ur Specific [place] >= 1.030, Urine Protein Trace H, Urine Glucose (UA) >=1000 , Urine Ketones Negative, Urine Blood Negative, Urine Nitrate Positive H, Urine Bilirubin Negative, Urine Urobilinogen 0.2, Ur Leukocyte Esterase Small H, Urine RBC 0 - 2, Urine WBC 15 - 20, Ur Epithelial Cells 4 - 5, Calcium Oxalate Crystal Few, Urine Bacteria Large, Urine Other Mucus 02/12/18 06:11: PT 13.4 H, INR 1.16, APTT 28.7 02/12/18 06:11: WBC 8.1, RBC 3.98, Hgb 13.9, Hct 39.3, MCV 98.7, MCH 34.9, MCHC 35.4, RDW 14.9 H, Plt Count 159, MPV 10.0, Gran % 50.5, Lymph % (Auto) 37.0 H, [place] % (Auto) 8.3 H, Eos % (Auto) 3.7, Baso % (Auto) 0.5, Gran # 4.10, Lymph # ( Auto) 3.0, [place] # (Auto) 0.7 H, Eos # (Auto) 0.3, Baso # (Auto) 0.04 - RAD Interpretation Radiology Orders: 02/12/18 05:54 ABD & PELVIS W/O PO OR IV CONT [CT] Stat - Medication Orders Current Medication Orders: Carbamazepine (Tegretol) 200 mg PO BID RASHEEDA PRN Reason: Protocol Clopidogrel Bisulfate (Plavix) 75 mg PO DAILY [facility] Ceftriaxone Sodium (Rocephin 1 Gram Ivpb) 1 gm in 100 mls @ 100 mls/hr IVPB DAILY RASHEEDA PRN Reason: Protocol Insulin Detemir (Levemir) 20 unit SC HS RASHEEDA Levetiracetam (Keppra) 750 mg PO BID [facility] Metformin HCl (Glucophage) 1,000 mg PO BID [facility] Xeloda [Capecitabine (] 500 Mg)) 500 mg PO BID [facility] (Dapagliflozin Propanediol [Farxiga ] 10 Mg) 10 mg PO DAILY [facility] Oxycodone/Acetaminophen (Percocet 5/325 Mg Tab) 1 tab PO Q6H PRN PRN Reason: Pain, severe (8-10) Stop: 02/15/18 11:19 Last Admin: 02/12/18 12:33 Dose: 1 tab [facility] Pain Assessment Document 02/12/18 12:33 CV (Rec: 02/12/18 12:33 CV [id number]) Pain Reassessment Is this a pain reassessment? No Presence of Pain Presence of Pain Yes Pain Scale Used Pain Scale Used Numeric Description Description Intermittent Discontinued Medications Sodium Chloride (Sodium Chloride 0.9%) 1,000 mls @ 100 mls/hr IV .Q10H STA Stop: 02/12/18 15:53 Last Admin: 02/12/18 06:09 Dose: 100 mls/hr eMAR Start Stop Document 02/12/18 06:09 AD (Rec: 02/12/18 06:12 AD [id number]) Intravenous Solution Start Date 02/12/18 Start Time 06:12 Ceftriaxone Sodium (Rocephin 1 Gram Ivpb) 1 gm in 100 mls @ 100 mls/hr IVPB ONCE ONE PRN Reason: Protocol Stop: 02/12/18 08:36 Last Admin: 02/12/18 07:45 Dose: 100 mls/hr eMAR Start Stop Document 02/12/18 07:45 SZA (Rec: 02/12/18 07:46 CRYSTAL [id number]) Intravenous Solution Start Date 02/12/18 Start Time 07:45 End Date 02/12/18 End time 08:15 Total Infusion Time 30 Ketorolac Tromethamine (Toradol) 15 mg IVP ONCE ONE Stop: 02/12/18 05:58 Last Admin: 02/12/18 06:12 Dose: 15 mg MAR Pain Assessment Document 02/12/18 06:12 AD (Rec: 02/12/18 06:13 AD [id number]) Pain Reassessment Is this a pain reassessment? No Presence of Pain Presence of Pain Yes Pain Scale Used Pain Scale Used Numeric Location Left, Right or Bilateral Left Description Intensity of Pain at present 8 Pain Behavior Facial Grimacing IVP Administration Document 02/12/18 06:12 AD (Rec: 02/12/18 06:13 AD [id number]) Charges for Administration # of IVP Administrations 1 Levetiracetam (Keppra) 750 mg PO .EXTRA DOSE ONE Stop: 02/12/18 18:46 Ondansetron HCl (Zofran Inj) 4 mg IVP STAT STA Stop: 02/12/18 05:55 Last Admin: 02/12/18 06:12 Dose: 4 mg IVP Administration Document 02/12/18 06:12 AD (Rec: 02/12/18 06:12 AD [id number]) Charges for Administration # of IVP Administrations 1 - Transfer of Care Patient signed out to Dr:: konstantin labs ct and dispo - Scribe Statement The provider has reviewed the documentation as recorded by the Scribe Kenn Strange. All medical record entries made by the Claudia were at my direction and personally dictated by me. I have reviewed the chart and agree that the record accurately reflects my personal performance of the history, physical exam, medical decision making, and the department course for this patient. I have also personally directed, reviewed, and agree with the discharge instructions and disposition. Disposition/Present on Arrival - Present on Arrival Any Indicators Present on Arrival: No History of DVT/PE: No History of Uncontrolled Diabetes: Yes Urinary Catheter: No History of Decub. Ulcer: No History Surgical Site Infection Following: None - Disposition Have Diagnosis and Disposition been Completed?: Yes Diagnosis: Pyelonephritis Disposition: HOSPITALIZED Disposition Time: 07:00 Patient Problems: Current Active Problems Problem Status Onset Pyelonephritis Acute Condition: GOOD
[2018-02-12 06:33] LABS: URINE BILIRUBIN NEGATIVE (NEGATIVE); URINE BLOOD NEGATIVE (NEGATIVE); URINE GLUCOSE (UA) >=1000 mg/dL (NEGATIVE); URINE LEUKOCYTE ESTERASE SMALL Leu/uL (NEGATIVE); URINE PROTEIN TRACE mg/dL (<30 mg/dL); URINE UROBILINOGEN 0.2 E.U./dL (<1 E.U./dL)
[2018-02-12 06:36] LABS: BASO # 0.04 K/mm3 (0.0-2.0); BASO % 0.5 % (0.0-3.0); EOS # 0.3 (0.0-0.7); EOS % 3.7 % (1.5-5.0); GRAN # 4.1 (1.4-6.5); GRAN % 50.5 % (50.0-68.0); HEMOGLOBIN 13.9 g/dL (12.0-16.0); MEAN CELL VOLUME 98.7 fl (80.0-105.0); MEAN CORPUSCULAR HEMOGLOBIN 34.9 pg (25.0-35.0); MEAN CORPUSCULAR HGB CONC 35.4 g/dl (31.0-37.0); MONO # 0.7 (0.1-0.6); MONO % 8.3 % (1.0-6.0); RBC 3.98 10^6/uL (3.5-6.1); RED CELL DISTRIBUTION WIDTH 14.9 % (11.5-14.5); WHITE BLOOD COUNT 8.1 10^3/ul (4.5-11.0)
[2018-02-12 06:49] LABS: INR 1.16; PARTIAL THROMBOPLASTIN TIME 28.7 Seconds (25.1-36.5); PROTHROMBIN TIME 13.4 SECONDS (9.4-12.5)
[2018-02-12 06:52] LABS: ALB/GLOB RATIO 1.4 (1.1-1.8); ALT/SGPT 70 U/L (7-56); AST/SGOT 103 U/L (14-36); BLOOD UREA NITROGEN 13 mg/dL (7-21); CALCIUM 9.3 mg/dL (8.4-10.5); GFR NON-AFRICAN AMERICAN > 60
[2018-02-12 06:54] LABS: URINE APPEARANCE SLIGHT-CLOUDY (CLEAR); URINE COLOR YELLOW (YELLOW)
[2018-02-12 06:58] LABS: URINE RBC 0 - 2 /hpf (0-2)
[2018-02-12 06:59] LABS: URINE BACTERIA LARGE (NEG); URINE CALCIUM OXALATE CRYSTALS FEW /hpf; URINE WBC 15 - 20 /hpf (0-6)
[2018-02-12] MEDS ORDERED: cefTRIAXone 1 gm 1 GM/100 ML BAG IVPB ONE (07:37)
--- NOTE | 2018-02-12 08:07 | ED PDOC ---
Physical Exam Vital Signs Temp Pulse Resp BP Pulse Ox 02/12/18 07:40 98.2 F 62 16 112/59 L 99 02/12/18 05:40 98.7 F 71 18 137/87 99 - Systems Exam Head: Present: Atraumatic, Normocephalic Pupils: Present: PERRL Extroacular Muscles: Present: EOMI Conjunctiva: Present: Normal Mouth: Present: Moist Mucous Membranes Neck: Present: Normal Range of Motion Respiratory/Chest: Present: Clear to Auscultation, Good Air Exchange. No: Respiratory Distress, Accessory Muscle Use Cardiovascular: Present: Regular Rate and Rhythm, Normal S1, S2. No: Murmurs Abdomen: No: Tenderness, Distention, Peritoneal Signs Back: Present: CVA Tenderness (left) Upper Extremity: Present: Normal Inspection. No: Cyanosis, Edema Lower Extremity: Present: Normal Inspection. No: Edema Neurological: Present: GCS=15, CN II-XII Intact, Speech Normal Skin: Present: Warm, Dry, Normal Color. No: Rashes Psychiatric: Present: Alert, Oriented x 3, Normal Insight, Normal Concentration Medical Decision Making ED Course and Treatment: 02/12/18 07:05 Patient endorsed to me by Dr. De Jesus. Patient here with left flank pain. Awaiting lab and Abd/Pelvis CT results. 02/12/18 07:30 Patient's lab results reveals she has a UTI. 02/12/2018 06:59 Abd/Pelvis CT IMPRESSION: No evidence of an acute intra abdominal or pelvic abnormality. Nonobstructing left renal stones. Dictator: Charissa Adhikari paged [phone] Dr[address] Adhikari repaged 02/12/18 08:20 DM, w/ CVAT + UTI- likely pyelo. given DM and advanced age- will likely require admission Case discussed with Dr. Adhikari, who accepts for patient to be admitted under her service. - Lab Interpretations Lab Results: 02/12/18 06:11 02/12/18 06:11 Lab Results 02/12/18 06:11: Sodium 143, Potassium 3.9, Chloride 107, Carbon Dioxide 24, Anion Gap 16, BUN 13, Creatinine 0.8, Est GFR ( Amer) > 60, Est GFR (Non- Af Amer) > 60, Random Glucose 178 H, Calcium 9.3, Total Bilirubin 0.6, AST 103 H D, ALT 70 H, Alkaline Phosphatase 115, Total Protein 6.9, Albumin 4.0, Globulin 2.9, Albumin/Globulin Ratio 1.4 02/12/18 06:11: Urine Color Yellow, Urine Appearance Slight-cloudy, Urine pH 6.0 , Ur Specific [place] >= 1.030, Urine Protein Trace H, Urine Glucose (UA) >=1000 , Urine Ketones Negative, Urine Blood Negative, Urine Nitrate Positive H, Urine Bilirubin Negative, Urine Urobilinogen 0.2, Ur Leukocyte Esterase Small H, Urine RBC 0 - 2, Urine WBC 15 - 20, Ur Epithelial Cells 4 - 5, Calcium Oxalate Crystal Few, Urine Bacteria Large, Urine Other Mucus 02/12/18 06:11: PT 13.4 H, INR 1.16, APTT 28.7 02/12/18 06:11: WBC 8.1, RBC 3.98, Hgb 13.9, Hct 39.3, MCV 98.7, MCH 34.9, MCHC 35.4, RDW 14.9 H, Plt Count 159, MPV 10.0, Gran % 50.5, Lymph % (Auto) 37.0 H, [place] % (Auto) 8.3 H, Eos % (Auto) 3.7, Baso % (Auto) 0.5, Gran # 4.10, Lymph # ( Auto) 3.0, [place] # (Auto) 0.7 H, Eos # (Auto) 0.3, Baso # (Auto) 0.04 - RAD Interpretation Radiology Orders: 02/12/18 05:54 ABD & PELVIS W/O PO OR IV CONT [CT] Stat - Medication Orders Current Medication Orders: Sodium Chloride (Sodium Chloride 0.9%) 1,000 mls @ 100 mls/hr IV .Q10H STA Stop: 02/12/18 15:53 Last Admin: 02/12/18 06:09 Dose: 100 mls/hr eMAR Start Stop Document 02/12/18 06:09 AD (Rec: 02/12/18 06:12 AD [id number]) Intravenous Solution Start Date 02/12/18 Start Time 06:12 Discontinued Medications Ceftriaxone Sodium (Rocephin 1 Gram Ivpb) 1 gm in 100 mls @ 100 mls/hr IVPB ONCE ONE PRN Reason: Protocol Stop: 02/12/18 08:36 Last Admin: 02/12/18 07:45 Dose: 100 mls/hr eMAR Start Stop Document 02/12/18 07:45 CRYSTAL (Rec: 02/12/18 07:46 CRYSTAL [id number]) Intravenous Solution Start Date 02/12/18 Start Time 07:45 End Date 02/12/18 End time 08:15 Total Infusion Time 30 Ketorolac Tromethamine (Toradol) 15 mg IVP ONCE ONE Stop: 02/12/18 05:58 Last Admin: 02/12/18 06:12 Dose: 15 mg MAR Pain Assessment Document 02/12/18 06:12 AD (Rec: 02/12/18 06:13 AD [id number]) Pain Reassessment Is this a pain reassessment? No Presence of Pain Presence of Pain Yes Pain Scale Used Pain Scale Used Numeric Location Left, Right or Bilateral Left Description Intensity of Pain at present 8 Pain Behavior Facial Grimacing IVP Administration Document 02/12/18 06:12 AD (Rec: 02/12/18 06:13 AD [id number]) Charges for Administration # of IVP Administrations 1 Ondansetron HCl (Zofran Inj) 4 mg IVP STAT STA Stop: 02/12/18 05:55 Last Admin: 02/12/18 06:12 Dose: 4 mg IVP Administration Document 02/12/18 06:12 AD (Rec: 02/12/18 06:12 AD [id number]) Charges for Administration # of IVP Administrations 1 - Scribe Statement The provider has reviewed the documentation as recorded by the Claudia Cedillo Provider Scribe Attestation: All medical record entries made by the Sangiblucia were at my direction and personally dictated by me. I have reviewed the chart and agree that the record accurately reflects my personal performance of the history, physical exam, medical decision making, and the department course for this patient. I have also personally directed, reviewed, and agree with the discharge instructions and disposition. Disposition/Present on Arrival - Present on Arrival Any Indicators Present on Arrival: No History of DVT/PE: No History of Uncontrolled Diabetes: Yes Urinary Catheter: No History of Decub. Ulcer: No History Surgical Site Infection Following: None - Disposition Have Diagnosis and Disposition been Completed?: Yes Diagnosis: Pyelonephritis Disposition: HOME/ ROUTINE Disposition Time: 08:20 Condition: GOOD
--- NOTE | 2018-02-12 09:59 | CT ---
PROCEDURE: CT Abdomen and Pelvis without Oral or IV contrast. HISTORY: left flank pain COMPARISON: CT abdomen and pelvis without contrast performed 08/18/17, CT chest without contrast performed 01/23/18 TECHNIQUE: Contiguous axial images of the abdomen and pelvis. No oral or IV contrast administered. Coronal and Sagittal reformats generated and reviewed. Radiation dose: Total exam DLP = 535.30 mGy-cm. This CT exam was performed using one or more of the following dose reduction techniques: Automated exposure control, adjustment of the mA and/or kV according to patient size, and/or use of iterative reconstruction technique. FINDINGS: There is limited evaluation of the solid organs without the administration of IV contrast. Partially imaged central venous catheter. LOWER THORAX: No visible consolidation, pleural effusion, or pneumothorax. 4 mm right lower lobe pulmonary nodule, grossly stable. LIVER: Mildly nodular hepatic contour. GALLBLADDER AND BILE DUCTS: Cholecystectomy. PANCREAS: Unremarkable unenhanced appearance. SPLEEN: Unremarkable unenhanced appearance. ADRENALS: Unremarkable unenhanced appearance. KIDNEYS AND URETERS: Nonobstructing left renal calcifications. No hydronephrosis or obstructing renal calculus. BLADDER: Decompressed urinary bladder limits evaluation. REPRODUCTIVE: Hysterectomy. APPENDIX: Appendectomy. BOWEL: The stomach is nondistended. Lack of oral contrast limits evaluation for bowel pathology. The bowel loops appear within normal limits of caliber without evidence of intestinal obstruction. Anastomotic suture material, sigmoid colon. PERITONEUM: No significant free fluid. No definite free air. LYMPH NODES: No bulky lymphadenopathy identified. VASCULATURE: Dense atherosclerotic calcifications of the aorta and branches. No aortic aneurysm. Right common iliac stent. BONES: Degenerative changes. OTHER FINDINGS: None. IMPRESSION: Nonobstructing left renal calculi. Additional findings as above. Preliminary impression was provided by [facility].
[2018-02-12] MEDS: Oxycodone/Acetaminophen 5/325 mg Tab PO PRN (12:33)
[2018-02-12 13:10] VITALS: BMI 46.5
[2018-02-12] MEDS: XELODA 500 MG PO SCH (20:03)
[2018-02-12] MEDS: Insulin Detemir 100 units/ml Vial (Levemir) SC SCH (22:24)
--- NOTE | 2018-02-13 05:18 | HP ---
Copied To: Kirstin Adhikari MD Attending MD: Kirstin Adhikari MD HISTORY OF PRESENT ILLNESS: The patient is 67 years old female who came to emergency room with left flank pain that started yesterday associated with nausea and chills, complained of some chest discomfort. No shortness of breath. No cough. No congestion. Then, complained of some suprapubic discomfort and left flank discomfort. PAST MEDICAL HISTORY: Significant for; 1. Ovarian CA. 2. Rjh-djaemrc-afsqepush diabetes. 3. Hypertension. 4. Generalized osteoarthritis. 5. Seizure disorder. ALLERGY: PATIENT IS NOT ALLERGIC TO ANY MEDICATIONS. MEDICATIONS AT HOME: She is on simvastatin 20 mg daily, metformin 1000 twice a day, Keppra 750 twice a day. She is on Vytorin and capecitabine. SOCIAL HISTORY: She lives with her boyfriend. Denies smoking, drinking or alcohol use. She used to be a smoker, but quit couple of years ago. PHYSICAL EXAMINATION: GENERAL: Patient is awake, alert, oriented, communicative. VITAL SIGNS: She is afebrile, pulse 60, respirations 18, blood pressure 132/69. LUNGS: Bilateral good airflow. No rhonchi or crackle. HEART: S1 and S2 audible. ABDOMEN: Soft. Left flank palpable discomfort, mid chest palpable discomfort. NEUROLOGICAL: She is awake, alert, oriented, communicative. EXTREMITIES: Bilateral legs, no edema. LABORATORY EXAM: WBC is 8.1, hemoglobin 13.9, hematocrit 39.3, platelet 159. PT 13.4. INR 1.16. Chemistry: Sodium 143, potassium 3.9, chloride 107, CO2 of 25, BUN 13, creatinine 0.8. Blood sugar 137. AST 103, ALT 70. Leukocytes small and nitrites are positive. DIAGNOSTIC DATA: She had CT scan of the abdomen and pelvis done that showed nonobstructing left renal calculi. Additional finding as above. CT scan of the chest is negative. ASSESSMENT: 1. Left flank pain probably pyelonephritis. 2. Hypertension. 3. Seizure disorder. 4. [id number] diabetes. PLAN: We will start her on IV fluid, IV antibiotics. Monitor her blood sugar. I will resume her Keppra. Continue antibiotics. We will follow up this patient in a.m. Kirstin Adhikari MD [facility] # [id number]
[2018-02-13] MEDS: Oxycodone/Acetaminophen 5/325 mg Tab PO PRN (07:20)
[2018-02-13 07:25] LABS: BASO # 0.02 K/mm3 (0.0-2.0); BASO % 0.3 % (0.0-3.0); EOS # 0.3 (0.0-0.7); EOS % 4.4 % (1.5-5.0); GRAN # 3.26 (1.4-6.5); GRAN % 48.2 % (50.0-68.0); HEMOGLOBIN 13.2 g/dL (12.0-16.0); LYMPH # 2.6 (1.2-3.4); LYMPH % 39.1 % (22.0-35.0); MEAN CORPUSCULAR HGB CONC 34.4 g/dl (31.0-37.0); MEAN PLATELET VOLUME 9.9 fl (7.0-11.0); MONO # 0.5 (0.1-0.6); RBC 3.88 10^6/uL (3.5-6.1); RED CELL DISTRIBUTION WIDTH 15.2 % (11.5-14.5); WHITE BLOOD COUNT 6.8 10^3/ul (4.5-11.0)
[2018-02-13 07:49] LABS: ALB/GLOB RATIO 1.1 (1.1-1.8); ALBUMIN 3.3 g/dL (3.0-4.8); ALT/SGPT 71 U/L (7-56); AST/SGOT 92 U/L (14-36); BLOOD UREA NITROGEN 11 mg/dL (7-21); CALCIUM 8.6 mg/dL (8.4-10.5); GFR NON-AFRICAN AMERICAN > 60
[2018-02-13] MEDS: XELODA 500 MG PO SCH ×2 (10:23→17:11)
[2018-02-13] MEDS: cefTRIAXone 1 gm 1 GM/100 ML BAG IVPB SCH (10:24)
[2018-02-13] MEDS ORDERED: Gadodiamide 287 MG/ML VIAL (15ML) IV ONE (17:57)
--- NOTE | 2018-02-13 20:58 | PN ---
Copied To: Kirstin Adhikari MD Attending MD: Kirstin Adhikari MD DATE: 02/13/2018 SUBJECTIVE: The patient is 67 years old, seen and examined. She states she feels better. She still has lower mid back pain. Denies any nausea or vomiting. Eating and tolerating. PHYSICAL EXAMINATION: VITAL SIGNS: She is afebrile, pulse 60, respirations 20, blood pressure 96/54. LUNGS: Bilateral fair airflow. No rhonchi or crackle. HEART: S1 and S2 audible. ABDOMEN: Soft, nontender. No rebound. No guarding. NEUROLOGIC: She is awake, alert, oriented, communicative and ambulatory. LABORATORY DATA: WBC is 6.8, hemoglobin 13, hematocrit 38, platelets of 135. Chemistry: Sodium 140, potassium 4, chloride 109, CO2 of 24, BUN of 11, creatinine 0.5, blood sugar of 177. Cultures are pending. CT scan of the abdomen and pelvis shows nonobstructing left renal calculus. ASSESSMENT: 1. History of ovarian cancer status post oophorectomy and hysterectomy. 2. History of seizure disorder. 3. Non-insulin dependent diabetes. 4. Hypertension. 5. Hyperlipidemia. PLAN: We will continue the patient on current medication. Analgesics as needed. I will order for MRI of L-S spine and we will continue medication for now. We will request for physical therapy evaluation. Kirstin Adhikari MD
[2018-02-13] MEDS: Insulin Detemir 100 units/ml Vial (Levemir) SC SCH (22:00)
[2018-02-14] MEDS: Oxycodone/Acetaminophen 5/325 mg Tab PO PRN (09:45)
[2018-02-14] MEDS: XELODA 500 MG PO SCH (09:46)
[2018-02-14] MEDS: cefTRIAXone 1 gm 1 GM/100 ML BAG IVPB SCH (09:47)
--- NOTE | 2018-02-14 10:06 | CARD ---
APPROVED REPORT Date of service: 02/14/2018 EKG Measurement Heart [id number] <Conclusion> Normal sinus rhythm Minimal voltage criteria for LVH, may be normal variant No change
--- NOTE | 2018-02-14 10:58 | MRI ---
Date of service: 02/13/2018 PROCEDURE: MR LUMBAR SPINE WITH AND WITHOUT CONTRAST HISTORY: lower back pain COMPARISON: 01/23/2018 TECHNIQUE: Multiecho multiplanar sequences were performed through the lumbar spine with and without the use of intravenous contrast. 15 cc of Omniscan. FINDINGS: Normal lumbar lordosis. Vertebral body heights are preserved. Marrow signal unremarkable. Conus medullaris unremarkable at the level of T12 Paraspinal soft tissues are unremarkable. No abnormal enhancement. T12-L1: No disc herniation, spinal canal stenosis or neural foraminal narrowing. L1-2: No disc herniation, spinal canal stenosis or neural foraminal narrowing. L2-3: No disc herniation, spinal canal stenosis or neural foraminal narrowing. L3-4: Asymmetric disc bulge to the right with mild foraminal narrowing L4-5: Disc bulge with radial tear in the outer fibers of the annulus. L5-S1: Small central disc protrusion with annular tear OTHER FINDINGS: The report concurs with the preliminary [facility] report IMPRESSION: Mild multilevel degenerative changes as described above. No significant central canal stenosis
[2018-02-14 14:59] LABS: TROPONIN I < 0.01 ng/mL
--- NOTE | 2018-02-14 17:16 | CARD ---
APPROVED REPORT Date of service: 02/14/2018 EXAM: Two-dimensional and M-mode echocardiogram with Doppler and color Doppler. INDICATION Chest Pain 2D DIMENSIONS Left Atrium (2D)3.8 (1.6-4.0cm)IVSd0.8 (0.7-1.1cm) LVDd4.2 (3.9-5.9cm)PWd1.0 (0.7-1.1cm) LVDs3.1 (2.5-4.0cm)FS (%) 27.6 % LVEF (%)53.9 (>50%) M-Mode DIMENSIONS Aortic Root2.40 (2.2-3.7cm)Aortic Cusp Exc.1.70 (1.5-2.0cm) Aortic Valve AoV Peak Roogqhdh988.0cm/Nell Peak GR.7mmHg Mitral Valve E/A ratio0.0 TDI E/Lateral E'0.0E/Medial E'0.0 Tricuspid Valve TR Peak [id number] [id number] Peak Gr.20mmHg [id number] LEFT VENTRICLE The left ventricle is normal size. There is normal left ventricular wall thickness. The left ventricular function is normal.EF-55% There is normal LV segmental wall motion. The left ventricular diastolic function is normal. No left ventricle thrombus noted on this study. There is no ventricular septal defect visualized. There is no left ventricular aneurysm. There is no mass noted in the left ventricle. RIGHT VENTRICLE The right ventricle is normal size. There is normal right ventricular wall thickness. The right ventricular systolic function is normal. ATRIA The left atrium size is normal. The right atrium size is normal. The interatrial septum is intact with no evidence for an atrial septal defect. AORTIC VALVE The aortic valve is thickened but opens well. The aortic valve is mildly to moderately sclerotic. No aortic regurgitation is present. There is no aortic valvular stenosis. There is no aortic valvular vegetation. MITRAL VALVE The mitral valve is thickened but opens well. Mitral regurgitation is trace to mild. There is no mitral valve stenosis. There is no evidence of mitral valve prolapse. TRICUSPID VALVE The tricuspid valve leaflets are thickened , but open well. There is trace to mild tricuspid regurgitation.RVSP-30 mmof hg. There is no tricuspid valve stenosis. There is no tricuspid valve prolapse or vegetation. PULMONIC VALVE The pulmonary valve is normal in structure. There is no pulmonic valvular regurgitation. There is no pulmonic valvular stenosis. GREAT VESSELS The aortic root is normal in size. The ascending aorta is normal in size. The pulmonary artery is normal. The IVC is normal in size and collapses >50% with inspiration. PERICARDIAL EFFUSION There is no pleural effusion. There is no pericardial effusion. <Conclusion> Normal chamber Size. Ef-55% Mitral regurgitation is trace to mild. There is trace to mild tricuspid regurgitation.RVSP-30 mmof hg. The IVC is normal in size and collapses >50% with inspiration. There is no pericardial effusion.
--- NOTE | 2018-02-14 17:26 | CON ---
Copied To: Amarilys Yang MD Attending MD: Amarilys Yang MD DATE: 02/14/2018 SERVICE: Cardiology. REASON FOR CONSULTATION: Cardiac evaluation for chest pain. BRIEF CLINICAL HISTORY: This is a 67-year-old female with past medical history significant for hypertension, ovarian CA, colorectal cancer history, history of surgery in the past. Admitted with acute pyelonephritis. This morning, patient complained of retrosternal chest pain, so cardiology consult was called. Patient denies any prior episodes of chest pain. PAST HISTORY: Significant for hypertension, seizure disorder, osteoarthritis, and diabetes. Past history of significant for ovarian cancer, status post hysterectomy; history of colorectal cancer; history of appendectomy. PAST SURGICAL HISTORY: Significant for bilateral salpingo-oophorectomy for ovarian cancer; history of colon cancer, status post resection, no colostomy; history of appendectomy; history of cholecystectomy. SOCIAL HISTORY: Denies any history of alcohol abuse. Used to smoke, but quit smoking at least 20 years ago. MEDICATIONS: Current medications patient is taking at home before coming to the hospital: Zetia, Plavix 75 mg daily, insulin, and metformin. ALLERGIES: NO KNOWN DRUG ALLERGIES. PREVIOUS CARDIAC WORKUP: Patient had echo and a stress test at Dr. Modi's office at [facility], was told as negative. REVIEW OF SYSTEMS: As per HPI. PHYSICAL EXAMINATION: As follows: GENERAL: Height of the patient 5 feet, weight of the patient is 246, body mass index 46 kg/m2. VITAL SIGNS: Temperature afebrile, heart rate 70, blood pressure 102/56. HEENT: PERRLA. Extraocular muscles intact. NECK: Supple. No carotid bruit or thyromegaly. CHEST: Clear to auscultation. HEART: S1 and S2, regular. ABDOMEN: Soft. EXTREMITIES: Clubbing and cyanosis negative. LABORATORY DATA: Blood workup as follows: WBC 6.8, hemoglobin 13.2, hematocrit 38.4, and platelet count 135. Chemistry shows sodium 140, potassium 4, chloride 109, carbon dioxide 24, anion gap of 12. BUN 11, creatinine 0.7. IMPRESSION: A 67-year-old female with past medical history significant for diabetes, hypertension, hyperlipidemia, history of colorectal cancer, status post resection, history of ovarian cancer status post bilateral salpingo-oophorectomy, history of appendectomy, cholecystectomy, admitted with acute pyelonephritis and complained of chest pain. Very tender on the chest. Patient jumps on pressing the chest, though the spot is retrosternal, is very prominent for cardiac condition, but patient with severe tenderness. Examined in front of the nurses and the patient was jumping. RECOMMENDATIONS: We will NSAID. We will follow up CPK, troponin. EKG is pretty benign. Consider stress test when patient is stable. Patient had a stress test 2 years ago. We suggested a stress test as an outpatient. We will follow with you. We will get echo to assess LV function. Thank you Dr. Adhikari, for providing the opportunity in taking care of the patient, Cynthia Allen. Amarilys Yang MD cc: Kirstin Adhikari MD
[2018-02-14] MEDS: Insulin Detemir 100 units/ml Vial (Levemir) SC SCH (21:43)
[2018-02-14 21:50] VITALS: RESP 20
--- NOTE | 2018-02-15 00:05 | PN ---
Copied To: Kirstin Adhikari MD Attending MD: Kirstin Adhikari MD DATE: 02/14/2018 SUBJECTIVE: The patient is 67 years old, seen and examined , complaining of left leg and mid back pain. She complain of chest pain this morning, although it was palpable. Had EKG done, unremarkable. Had echocardiogram done. PHYSICAL EXAMINATION: GENERAL: She is awake, alert, oriented, communicative. VITAL SIGNS: She is afebrile, pulse 84, respirations 20, blood pressure 126/63. LUNGS: Bilateral fair airflow. No rhonchi or crackle. HEART: S1 and S2 audible. ABDOMEN: Soft, nontender. No rebound. NEUROLOGIC: She is awake, alert, oriented, able to communicate. Moves all extremities. Complaining of mid back pain. LABORATORY DATA: Blood sugar is 172. Urine culture positive for E. coli that is sensitive to Bactrim. Had MRI of lumbar spine done that shows multilevel degenerative disk disease. No spinal stenosis. Had echocardiogram done that shows normal chamber size, ejection fraction 55%, mitral regurg and [id number] tricuspid regurg. ASSESSMENT AND PLAN: 1. Left nephrolithiasis. 2. Seizure disorder. 3. History of ovarian cancer. 4. Non-insulin dependent diabetes. 5. Seizure disorder. PLAN: We will continue the patient on current medication and switch our antibiotic to p.o. Bactrim and will be discharged home in a.m. Kirstin Adhikari MD
[2018-02-15 07:46] VITALS: BP 112/57; PULSE 63; TEMP 97.9; O2SAT 99
[2018-02-15 08:05] LABS: BASO # 0.03 K/mm3 (0.0-2.0); BASO % 0.4 % (0.0-3.0); EOS # 0.3 (0.0-0.7); GRAN # 2.92 (1.4-6.5); GRAN % 41.9 % (50.0-68.0); HEMOGLOBIN 14.6 g/dL (12.0-16.0); LYMPH # 3.1 (1.2-3.4); LYMPH % 44.8 % (22.0-35.0); MEAN CELL VOLUME 98.8 fl (80.0-105.0); MEAN CORPUSCULAR HEMOGLOBIN 34.9 pg (25.0-35.0); MEAN CORPUSCULAR HGB CONC 35.4 g/dl (31.0-37.0); MEAN PLATELET VOLUME 9.8 fl (7.0-11.0); MONO # 0.6 (0.1-0.6); MONO % 8.9 % (1.0-6.0); RBC 4.18 10^6/uL (3.5-6.1)
[2018-02-15 08:23] LABS: ALB/GLOB RATIO 1.2 (1.1-1.8); ALBUMIN 3.6 g/dL (3.0-4.8); ALT/SGPT 65 U/L (7-56); AST/SGOT 59 U/L (14-36); BLOOD UREA NITROGEN 16 mg/dL (7-21); CALCIUM 8.8 mg/dL (8.4-10.5); GFR NON-AFRICAN AMERICAN > 60; HDL CHOLESTEROL 80 mg/dL (29-60); LDL CHOLESTEROL < 30 mg/dL (0-129)
[2018-02-15] MEDS: cefTRIAXone 1 gm 1 GM/100 ML BAG IVPB SCH (09:37)
[2018-02-15] MEDS: XELODA 500 MG PO SCH (09:48)
--- NOTE | 2018-02-16 03:58 | DS ---
Copied To: Kirstin Adhikari MD Attending MD: Kirstin Adhikari MD HISTORY OF PRESENT ILLNESS: The patient is a 67 years old woman who came to emergency room after left-sided flank pain. The patient was given IV fluids and IV antibiotics because urine culture is positive for E. coli. Initially was on Rocephin, did well. The patient was complaining of mid back pain since she has a history of ovarian CA. I did lumbosacral MRI that was unremarkable. The patient developed chest pain yesterday. EKG was unremarkable. Troponin was negative. Echocardiogram shows normal chamber size with an ejection fraction of 55% and lumbar spine MRI shows multilevel degenerative disk disease. No spinal stenosis. ASSESSMENT: 1. Left nephrolithiasis. 2. Escherichia coli urinary tract infection. 3. History of ovarian cancer. 4. History of hypertension. 5. Dwg-hxmnkgx-opnfblblz diabetes. 6. Hyperlipidemia. 7. Coronary artery disease. 8. History of seizure disorder, on Keppra. PLAN: The patient is given Bactrim DS 1 tablet twice a day for a week and she was given prescription of Ultracet p.r.n. She will follow up with her PMD. Kirstin Adhikari MD
== END 2018-02-15 13:38 | disposition home or self-care (01) | DRG 690 ==
LOC: ED 05:30 → ERH 08:21 → UNDOADMIN 08:29 → ERH 08:48 → 5RSO 09:34 → ERH 09:34
PROVIDERS: ADMIT Internal Medicine; ATTEND Internal Medicine
DX: N10 Acute pyelonephritis (principal); N20.0 Calculus of kidney; B96.20 Unspecified Escherichia coli [E. coli] as the cause of diseases classified elsewhere; E11.9 Type 2 diabetes mellitus without complications; E78.5 Hyperlipidemia, unspecified; G40.909 Epilepsy, unspecified, not intractable, without status epilepticus; I10 Essential (primary) hypertension; M51.36 Other intervertebral disc degeneration, lumbar region; J45.909 Unspecified asthma, uncomplicated; I25.10 Atherosclerotic heart disease of native coronary artery without angina pectoris; I08.1 Rheumatic disorders of both mitral and tricuspid valves; M15.9 Polyosteoarthritis, unspecified; Z79.4 Long term (current) use of insulin; Z79.02 Long term (current) use of antithrombotics/antiplatelets; Z85.43 Personal history of malignant neoplasm of ovary; Z85.048 Personal history of other malignant neoplasm of rectum, rectosigmoid junction, and anus; Z87.891 Personal history of nicotine dependence

== ENCOUNTER 2018-03-23 05:25 | Emergency (ER) | payer MEDICARE, OTHER ==
[2018-03-23 05:25] VITALS: BMI 46.5
--- NOTE | 2018-03-23 06:11 | ED PDOC ---
Arrival/HPI - General Historian: Patient - History of Present Illness Narrative History of Present Illness (Text): 03/23/18 06:02 Pt is a 67 yo F with pmhx of DM, HTN, asthma, OA, seizures, PVD s/p stent in R knee who is complaining of pain behind R knee and b/l calf cramping. She states that the cramping began at 3am, and woke her from her sleep. Then the pain remit and occurred again 30 min later. She states that she has never experienced pain like this before, though the pain is improving. Pt was able to walk into ED and is able to put weight on her legs without pain. She states that now her pain is better and only a 5/10 but she is afraid that the pain will come back. She denies any trauma to the area and also denies radiation of the pain or limited ROM in her knees or ankles. She denies any fevers, chills, numbness, tingling, or weakness in her legs. She also denies any fevers, chills, chest pain, SOB, cough, abd pain, n/v, c/d, dysuria or hematuria. Pmhx: DM, HTN, Asthma, OA, seizures, PVD s/p stent in R knee Pshx: Stent placement in R knee All: Denies Social: Denies tobacco use, etoh or illicit drug use Fam Hx: Denies 03/23/18 06:31 Time/Duration: 1-3 hours Symptom Onset: Sudden Symptom Course: Improving Severity Level: 5 <Wong Mustafa - Last Filed: 03/23/18 06:31> <Jay Templeton - Last Filed: 03/23/18 06:53> - General Time Seen by Provider: 03/23/18 05:33 Past Medical History - Provider Review Nursing Documentation Reviewed: Yes - Past History Past History: Non-Contributing - Infectious Disease Hx of Infectious Diseases: None - Tetanus Immunization Tetanus Immunization: Unknown - Reproductive Menopause: No - Past Medical History Past Medical History: No Previous - Cardiac Hx Cardiac Disorders: Yes (CAD) - Pulmonary Hx Respiratory Disorders: Yes (USED TO SMOKE CIGARETTES. QUIT 07-27-2009) - Neurological Hx Neurological Disorder: Yes Hx Headaches: Yes Hx Seizures: Yes - HEENT Hx HEENT Disorder: No - Renal Hx Renal Disorder: Yes Hx Kidney Stones: Yes (cystoscopy with stent) Other/Comment: lithotripsy - Endocrine/Metabolic Hx Diabetes Mellitus Type 2: Yes - Hematological/Oncological Hx Blood Disorders: Yes - Integumentary Hx Dermatological Disorder: No - Musculoskeletal/Rheumatological Hx Musculoskeletal Disorders: No Other/Comment: stent in right knee - Gastrointestinal Hx Gastrointestinal Disorders: Yes (RECTAL BLEED,APPENDECTOMY) - Genitourinary/Gynecological Hx Genitourinary Disorders: Yes (OVARIAM CA DXED 2014,HYSTERECTOMY) - Psychiatric Hx Psychophysiologic Disorder: Yes Hx Anxiety: Yes Hx Substance Use: No - Surgical History Hx Appendectomy: Yes Hx Cholecystectomy: Yes Hx Hysterectomy: Yes Other/Comment: CYSTOSCOPY - Anesthesia Hx Anesthesia: No Hx Anesthesia Reactions: Yes Hx Malignant Hyperthermia: No - Suicidal Assessment Feels Threatened In Home Enviroment: No <Wong Mustafa - Last Filed: 03/23/18 06:31> Family/Social History - Physician Review Nursing Documentation Reviewed: Yes Family/Social History: No Known Family HX Smoking Status: Former Smoker Hx Alcohol Use: No Hx Substance Use: No Hx Substance Use Treatment: No <Wong Mustafa - Last Filed: 03/23/18 06:31> Allergies/Home Meds <Wong Mustafa - Last Filed: 03/23/18 06:31> <Jay Templeton - Last Filed: 03/23/18 06:53> Allergies/Adverse Reactions: Allergies No Known Allergies Allergy (Verified 03/23/18 05:53) Home Medications: Home Meds Medication Instructions Recorded Confirmed Metformin HCl [Glucophage] 1,000 mg PO BID 05/02/17 03/23/18 Capecitabine 500 mg PO BID 06/11/17 03/23/18 Clopidogrel [Plavix] 70 mg PO DAILY 03/23/18 03/23/18 Dapagliflozin Propanediol [Farxiga] 5 mg PO DAILY 03/23/18 03/23/18 Insulin Detemir [Levemir] 20 units SQ DAILY 03/23/18 03/23/18 Review of Systems - Physician Review All systems were reviewed & negative as marked: Yes - Review of Systems Musculoskeletal: Arthralgias (R worse than L knee pain, present on the medial aspect of the R knee.). absent: Joint Swelling Neurological: absent: Focal Weakness, Disequilibrium <RamseyLopezBack - Last Filed: 03/23/18 06:31> Physical Exam Appearance: Positive for: Well-Appearing, Non-Toxic, Comfortable Pain Distress: None Mental Status: Positive for: Alert and Oriented X 3 - Systems Exam Head: Present: Atraumatic, Normocephalic Pupils: Present: PERRL Extroacular Muscles: Present: EOMI Respiratory/Chest: Present: Clear to Auscultation, Good Air Exchange. No: Respiratory Distress, Accessory Muscle Use, Wheezes, Rales, Rhonchi Cardiovascular: Present: Regular Rate and Rhythm, Normal S1, S2. No: Murmurs, Rub, Gallop Abdomen: Present: Normal Bowel Sounds. No: Tenderness, Distention, Peritoneal Signs, Rebound, Guarding Lower Extremity: Present: Normal Inspection, Normal ROM, Tenderness (R medial knee tenderness upon palpation, no R ankle tenderness or swelling, L knee less tender than R with no L ankle tenderness. No limit to ROM. ), Neurovascularly Intact. No: Edema, CALF TENDERNESS Neurological: Present: GCS=15, Speech Normal, Motor Func Grossly Intact, Normal Sensory Function Skin: Present: Warm, Dry, Normal Color. No: Rashes Psychiatric: Present: Alert, Oriented x 3, Normal Insight, Normal Concentration <Lopez Mustafahammad - Last Filed: 03/23/18 06:31> Vital Signs Temp Pulse Resp BP Pulse Ox 03/23/18 06:06 97.9 F 72 17 132/91 H 100 <Jay Templeton - Last Filed: 03/23/18 06:53> Medical Decision Making ED Course and Treatment: 03/23/18 06:16 Pt is a 67 yo F with pmhx detailed above who presents for b/l leg cramping and knee pain. - CBC - CMP - b/l LE Doppler US - b/l Knee and patella 3 view XR - RAD Interpretation Radiology Orders: 03/23/18 05:58 KNEE W PATELLA BILAT 3 VIEW [RAD] Stat DUPLEX LOWER EXTRM VEIN BILAT [US] Stat <Wong Mustafa - Last Filed: 03/23/18 06:31> ED Course and Treatment: 03/23/18 06:15 Patient seen and evaluated with director global medical affairs.Agree with HPI/assessment/treatment and plan. 03/23/18 07:00 Case endorsed to /pending Leg doppler U/S/Xrays/labs/reassess/final disposition - Lab Interpretations Lab Results: 03/23/18 06:14 Lab Results 03/23/18 06:14: Sodium 136, Potassium 3.8, Chloride 106, Carbon Dioxide 22, Anion Gap 12, BUN 14, Creatinine 0.7, Est GFR ( Amer) > 60, Est GFR (Non- Af Amer) > 60, Random Glucose 157 H, Calcium 8.8, Phosphorus 4.2, Magnesium 2.0, Total Bilirubin 0.6, AST 65 H, ALT 58 H, Alkaline Phosphatase 99, Total Protein 6.8, Albumin 3.8, Globulin 3.1, Albumin/Globulin Ratio 1.2 - RAD Interpretation Radiology Orders: 03/23/18 05:58 KNEE W PATELLA BILAT 3 VIEW [RAD] Stat DUPLEX LOWER EXTRM VEIN BILAT [US] Stat - Medication Orders Current Medication Orders: Acetaminophen (Tylenol 325mg Tab) 650 mg PO STAT STA Stop: 03/23/18 06:40 <Jay Templeton - Last Filed: 03/23/18 06:53> - PA / GUIDE WINDER / Resident Statement ZACH has reviewed & agrees with the documentation as recorded. ZACH has examined the patient and agrees with the treatment plan. <Jay Templeton - Last Filed: 03/23/18 06:53> Disposition/Present on Arrival - Present on Arrival History of DVT/PE: No History of Uncontrolled Diabetes: Yes Urinary Catheter: No History of Decub. Ulcer: No History Surgical Site Infection Following: None <Wong Mustafa - Last Filed: 03/23/18 06:31> - Present on Arrival Any Indicators Present on Arrival: No - Disposition Have Diagnosis and Disposition been Completed?: No Disposition Time: 07:00 <Jay Templeton - Last Filed: 03/23/18 06:53> - Disposition Diagnosis: Leg pain, Knee pain Patient Problems: Current Active Problems Problem Status Onset Knee pain Acute Leg pain Acute Condition: STABLE Referrals: Nely Modi DO [Primary Care Provider] - Follow up with primary
[2018-03-23 06:28] LABS: BASO # 0.04 K/mm3 (0.0-2.0); BASO % 0.5 % (0.0-3.0); EOS # 0.3 (0.0-0.7); EOS % 4.2 % (1.5-5.0); GRAN # 3.77 (1.4-6.5); GRAN % 49.4 % (50.0-68.0); LYMPH # 2.9 (1.2-3.4); MEAN CELL VOLUME 99.7 fl (80.0-105.0); MEAN CORPUSCULAR HEMOGLOBIN 34.3 pg (25.0-35.0); MEAN CORPUSCULAR HGB CONC 34.4 g/dl (31.0-37.0); MEAN PLATELET VOLUME 9.8 fl (7.0-11.0); MONO # 0.6 (0.1-0.6); MONO % 7.9 % (1.0-6.0); RBC 3.79 10^6/uL (3.5-6.1); RED CELL DISTRIBUTION WIDTH 14.5 % (11.5-14.5); WHITE BLOOD COUNT 7.6 10^3/ul (4.5-11.0)
[2018-03-23 06:37] LABS: ALB/GLOB RATIO 1.2 (1.1-1.8); ALBUMIN 3.8 g/dL (3.0-4.8); ALT/SGPT 58 U/L (7-56); AST/SGOT 65 U/L (14-36); BLOOD UREA NITROGEN 14 mg/dL (7-21); CALCIUM 8.8 mg/dL (8.4-10.5); GFR NON-AFRICAN AMERICAN > 60
--- NOTE | 2018-03-23 07:06 | ED PDOC ---
Physical Exam Vital Signs Reviewed: Yes Vital Signs Temp Pulse Resp BP Pulse Ox 03/23/18 06:06 97.9 F 72 17 132/91 H 100 Temperature: Afebrile Blood Pressure: Hypertensive Pulse: Regular Respiratory Rate: Normal Appearance: Positive for: Well-Appearing, Non-Toxic, Comfortable Pain Distress: None Mental Status: Positive for: Alert and Oriented X 3 Medical Decision Making ED Course and Treatment: 03/23/18 07:05: Case endorsed to me by Dr. Templeton. Pending Knee X-rays, Lower Extremity Doppler Ultrasound, labs, reassessment and disposition. 03/23/18 08:41 all data reviewed with patient. patient reports she had a severe muscle cramp in the back of her knees. patient also reports she occasionally gets radicular low back pain. at this time there are no neuro deficits, no weakness, strength is intact, no saddle anesthesia. patient discharged in stable condition to follow up with her pcp. - Lab Interpretations Lab Results: 03/23/18 06:14 Lab Results 03/23/18 06:14: Sodium 136, Potassium 3.8, Chloride 106, Carbon Dioxide 22, Anion Gap 12, BUN 14, Creatinine 0.7, Est GFR ( Amer) > 60, Est GFR (Non- Af Amer) > 60, Random Glucose 157 H, Calcium 8.8, Phosphorus 4.2, Magnesium 2.0, Total Bilirubin 0.6, AST 65 H, ALT 58 H, Alkaline Phosphatase 99, Total Protein 6.8, Albumin 3.8, Globulin 3.1, Albumin/Globulin Ratio 1.2 - RAD Interpretation Narrative RAD Interpretations (Text): 03/23/18 08:38 xray my read: no fracture, djd 03/23/18 08:39 preliminary US report: negative bilat DVT Radiology Orders: 03/23/18 05:58 KNEE W PATELLA BILAT 3 VIEW [RAD] Stat DUPLEX LOWER EXTRM VEIN BILAT [US] Stat Chief Meter Reader: ED Physician - Medication Orders Current Medication Orders: Discontinued Medications Acetaminophen (Tylenol 325mg Tab) 650 mg PO STAT STA Stop: 03/23/18 06:40 Last Admin: 03/23/18 06:51 Dose: 650 mg - Scribe Statement The provider has reviewed the documentation as recorded by the Claudia Browne Provider Scribe Attestation: All medical record entries made by the Scribe were at my direction and personally dictated by me. I have reviewed the chart and agree that the record accurately reflects my personal performance of the history, physical exam, medical decision making, and the department course for this patient. I have also personally directed, reviewed, and agree with the discharge instructions and disposition Disposition/Present on Arrival - Present on Arrival Any Indicators Present on Arrival: No History of DVT/PE: No History of Uncontrolled Diabetes: Yes Urinary Catheter: No History of Decub. Ulcer: No History Surgical Site Infection Following: None - Disposition Have Diagnosis and Disposition been Completed?: Yes Diagnosis: Leg pain, Knee pain, Radiculopathy of lumbosacral region Disposition: HOME/ ROUTINE Disposition Time: 08:43 Patient Plan: Discharge Patient Problems: Current Active Problems Problem Status Onset Leg pain Acute Knee pain Acute Condition: STABLE Discharge Instructions (ExitCare): Radiculopathy, Knee Pain (DC) Prescriptions: Cyclobenzaprine [Flexeril] 5 mg PO TID #15 tab Referrals: Nely Modi DO [Primary Care Provider] - Follow up with primary Forms: WORK NOTE
[2018-03-23 08:54] VITALS: BP 134/78; PULSE 59; RESP 18; TEMP 98.2; O2SAT 97
--- NOTE | 2018-03-23 11:41 | RAD ---
Date of service: 03/23/2018 PROCEDURE: Bilateral Knee Radiographs. HISTORY: Knee pain COMPARISON: None. FINDINGS: BONES: Right Knee: Normal. No fracture. Left Knee: Normal. No fracture. JOINTS: Right Knee: Normal. No osteoarthritis. Left knee: Normal. No osteoarthritis. SOFT TISSUES: Right Knee: Normal. Left Knee: Normal. JOINT EFFUSION: Right Knee: None. Left Knee: None. OTHER FINDINGS: None. IMPRESSION: Normal radiographs of the knees.
--- NOTE | 2018-03-23 19:55 | US ---
HISTORY: Leg pain and swelling. Evaluate for DVT PHYSICIAN(S): Benjie Lott MD. TECHNIQUE: Duplex sonography and color-flow Doppler with graded compression were used to evaluate the deep venous systems of both lower extremities. FINDINGS: The visualized deep venous systems of both lower extremities are sonographically normal and compressible. Normal wave forms and augmentation are seen. There is no sonographic evidence for deep venous thrombosis in the visualized segments of both lower extremities. IMPRESSION: No sonographic evidence for deep venous thrombosis in the visualized segments of both lower extremities.
== END 2018-03-23 08:50 | disposition home or self-care (01) ==
LOC: ED 05:25
DX: M25.561 Pain in right knee (principal); M25.562 Pain in left knee; M54.17 Radiculopathy, lumbosacral region; M79.605 Pain in left leg; M79.661 Pain in right lower leg

== ENCOUNTER 2018-07-02 06:15 | Emergency (ER) | payer MEDICARE, OTHER ==
[2018-07-02 06:15] VITALS: BMI 46.5
--- NOTE | 2018-07-02 06:37 | ED PDOC ---
Arrival/HPI - General Chief Complaint: Chest Pain Time Seen by Provider: 07/02/18 06:28 Historian: Patient - History of Present Illness Narrative History of Present Illness (Text): 07/02/18 06:33 Cynthia Allen is a 67 year old female, whose past medical history includes ovarian cancer s/p bilateral salpingo-oophorectomy, colorectal cancer s/p resection, cholecystectomy, NIDDM, hypertension, seizure disorder, and osteoarthritis, who presents to the Emergency department complaining of chest pain. Patient states she woke up this morning with mid-sternal chest pain, worsened with movement and palpation of the area. Patient denies any fever, chills, shortness of breath, nausea, vomiting, diarrhea, urinary symptoms, back pain, neck pain, headache, dizziness, or any other complaints. Symptom Onset: Gradual Symptom Course: Unchanged Activities at Onset: Light Context: Home Past Medical History - Provider Review Nursing Documentation Reviewed: Yes - Past History Past History: Non-Contributing - Infectious Disease Hx of Infectious Diseases: None - Tetanus Immunization Tetanus Immunization: Unknown - Past Medical History Past Medical History: No Previous - Cardiac Hx Cardiac Disorders: Yes (CAD) - Pulmonary Hx Respiratory Disorders: Yes (USED TO SMOKE CIGARETTES. QUIT 07-27-2009) - Neurological Hx Neurological Disorder: Yes Hx Headaches: Yes Hx Seizures: Yes - HEENT Hx HEENT Disorder: No - Renal Hx Renal Disorder: Yes Hx Kidney Stones: Yes (cystoscopy with stent) Other/Comment: lithotripsy - Endocrine/Metabolic Hx Diabetes Mellitus Type 2: Yes - Hematological/Oncological Hx Blood Disorders: Yes - Integumentary Hx Dermatological Disorder: No - Musculoskeletal/Rheumatological Hx Musculoskeletal Disorders: No Other/Comment: stent in right knee - Gastrointestinal Hx Gastrointestinal Disorders: Yes (RECTAL BLEED,APPENDECTOMY) - Genitourinary/Gynecological Hx Genitourinary Disorders: Yes (OVARIAM CA DXED 2014,HYSTERECTOMY) - Psychiatric Hx Psychophysiologic Disorder: Yes Hx Anxiety: Yes Hx Substance Use: No - Surgical History Hx Appendectomy: Yes Hx Cholecystectomy: Yes Hx Hysterectomy: Yes Other/Comment: CYSTOSCOPY - Anesthesia Hx Anesthesia: No Hx Anesthesia Reactions: Yes Hx Malignant Hyperthermia: No - Suicidal Assessment Feels Threatened In Home Enviroment: No Family/Social History - Physician Review Nursing Documentation Reviewed: Yes Family/Social History: Unknown Family HX Smoking Status: Former Smoker Hx Alcohol Use: No Hx Substance Use: No Hx Substance Use Treatment: No Allergies/Home Meds Allergies/Adverse Reactions: Allergies No Known Allergies Allergy (Verified 07/02/18 06:21) Home Medications: Home Meds Medication Instructions Recorded Confirmed Metformin HCl [Glucophage] 1,000 mg PO BID 05/02/17 07/02/18 Capecitabine 500 mg PO BID 06/11/17 07/02/18 Clopidogrel [Plavix] 70 mg PO DAILY 03/23/18 07/02/18 Dapagliflozin Propanediol [Farxiga] 5 mg PO DAILY 03/23/18 07/02/18 Insulin Detemir [Levemir] 20 units SQ DAILY 03/23/18 07/02/18 Review of Systems - Physician Review All systems were reviewed & negative as marked: Yes - Review of Systems Constitutional: Normal. absent: Fevers Eyes: Normal ENT: Normal Respiratory: Normal. absent: SOB, Cough Cardiovascular: Chest Pain Gastrointestinal: Normal. absent: Abdominal Pain, Diarrhea, Nausea Genitourinary Female: Normal. absent: Dysuria, Frequency, Hematuria, Urine Output Changes Musculoskeletal: Normal. absent: Back Pain, Neck Pain Skin: Normal. absent: Rash Neurological: Normal. absent: Headache, Dizziness Endocrine: Normal Hemo/Lymphatic: Normal Psychiatric: Normal Physical Exam Vital Signs Reviewed: Yes Vital Signs Temp Pulse Resp BP Pulse Ox 07/02/18 06:29 97.6 F 68 16 141/52 L 98 Temperature: Afebrile Blood Pressure: Normal Pulse: Regular Respiratory Rate: Normal Appearance: Positive for: Well-Appearing, Non-Toxic, Comfortable Pain Distress: None Mental Status: Positive for: Alert and Oriented X 3 - Systems Exam Head: Present: Atraumatic, Normocephalic Pupils: Present: PERRL Extroacular Muscles: Present: EOMI Conjunctiva: Present: Normal Mouth: Present: Moist Mucous Membranes Neck: Present: Normal Range of Motion Respiratory/Chest: Present: Clear to Auscultation, Good Air Exchange, Tender to Palpation (Anterior chest wall tenderness on palpation). No: Respiratory Distress, Accessory Muscle Use Cardiovascular: Present: Regular Rate and Rhythm, Normal S1, S2. No: Murmurs Abdomen: No: Tenderness, Distention, Peritoneal Signs Back: Present: Normal Inspection Upper Extremity: Present: Normal Inspection. No: Cyanosis, Edema Lower Extremity: Present: Normal Inspection. No: Edema Neurological: Present: GCS=15, CN II-XII Intact, Speech Normal Skin: Present: Warm, Dry, Normal Color. No: Rashes Psychiatric: Present: Alert, Oriented x 3, Normal Insight, Normal Concentration Medical Decision Making ED Course and Treatment: 07/02/18 06:33 Impression: 67 year old female complaining of mid-sternal cjhes Plan: -- EKG -- Chest X-ray -- Labs, cardiac enzymes, D-dimer -- Urinalysis -- Toradol -- Reassess and disposition Prior Visits: Notes and results from previous visits were reviewed. Progress Notes: Reviewed EKG. NSR at [address]H. Non-specific ST/T wave changes. 07/02/18 06:56 Chest X-ray reviewed, shows no acute processes. 07/02/18 07:[address] Krishnamurthy, pending labs, re-evaluation, and disposition. - EKG Interpretation Interpreted by ED Physician: Yes Type: 12 lead EKG - Scribe Statement The provider has reviewed the documentation as recorded by the Scriblucia Orr Provider Scribe Attestation: All medical record entries made by the Scribe were at my direction and personally dictated by me. I have reviewed the chart and agree that the record accurately reflects my personal performance of the history, physical exam, medical decision making, and the department course for this patient. I have also personally directed, reviewed, and agree with the discharge instructions and disposition. Disposition/Present on Arrival - Present on Arrival History of DVT/PE: No History of Uncontrolled Diabetes: Yes Urinary Catheter: No History of Decub. Ulcer: No History Surgical Site Infection Following: None - Disposition Referrals: Nely Modi DO [Primary Care Provider] - Follow up with primary Forms: [employer] (Albanian)
[2018-07-02 07:01] LABS: BASO # 0.04 K/mm3 (0.0-2.0); BASO % 0.5 % (0.0-3.0); EOS # 0.3 (0.0-0.7); EOS % 4.3 % (1.5-5.0); GRAN # 3.76 (1.4-6.5); GRAN % 47.3 % (50.0-68.0); HEMOGLOBIN 12.9 g/dL (12.0-16.0); LYMPH % 38.2 % (22.0-35.0); MEAN CELL VOLUME 97.2 fl (80.0-105.0); MEAN CORPUSCULAR HEMOGLOBIN 32.9 pg (25.0-35.0); MEAN CORPUSCULAR HGB CONC 33.9 g/dl (31.0-37.0); MEAN PLATELET VOLUME 10.5 fl (7.0-11.0); MONO # 0.8 (0.1-0.6); MONO % 9.7 % (1.0-6.0); RBC 3.92 10^6/uL (3.5-6.1); RED CELL DISTRIBUTION WIDTH 15.5 % (11.5-14.5); WHITE BLOOD COUNT 7.9 10^3/uL (4.5-11.0)
[2018-07-02 07:10] LABS: ALB/GLOB RATIO 1.2 (1.1-1.8); ALBUMIN 3.8 g/dL (3.0-4.8); ALT/SGPT 56 U/L (7-56); AST/SGOT 61 U/L (14-36); BLOOD UREA NITROGEN 10 mg/dL (7-21); CALCIUM 8.9 mg/dL (8.4-10.5); GFR NON-AFRICAN AMERICAN > 60
--- NOTE | 2018-07-02 07:15 | ED PDOC ---
Physical Exam Vital Signs Temp Pulse Resp BP Pulse Ox 07/02/18 06:29 97.6 F 68 16 141/52 L 98 Medical Decision Making ED Course and Treatment: 07/02/18 07:00 Case endorsed to me by Dr. De Jesus, pending labs, re-evaluation, and disposition. 07/02/18 07:40 On reevaluation, patient states she feels better and her pain has improved. On re-examination, there is mild tenderness to the chest wall. Patient states she would like to go home, and will follow-up with her PMD, Dr. Modi. Patient was also advised to follow-up with her lvn this week. Pt does not recall the name of her lvn, but expresses understanding. - Lab Interpretations Lab Results: Total Bilirubin 0.6 mg/dL (0.2-1.3) 07/02/18 06:00 AST 61 U/L (14-36) H 07/02/18 06:00 ALT 56 U/L (7-56) 07/02/18 06:00 Alkaline Phosphatase 115 U/L (38-126) 07/02/18 06:00 Total Protein 6.9 g/dL (5.8-8.3) 07/02/18 06:00 Albumin 3.8 g/dL (3.0-4.8) 07/02/18 06:00 Globulin 3.2 gm/dL 07/02/18 06:00 Albumin/Globulin Ratio 1.2 (1.1-1.8) 07/02/18 06:00 I have reviewed the lab results: Yes - RAD Interpretation Radiology Orders: 07/02/18 06:35 CHEST PORTABLE [RAD] Stat - Medication Orders Current Medication Orders: Discontinued Medications Ketorolac Tromethamine (Toradol) 15 mg IVP ONCE ONE Stop: 07/02/18 06:36 Last Admin: 07/02/18 06:54 Dose: 15 mg MAR Pain Assessment Document 07/02/18 06:54 MIRIAM (Rec: 07/02/18 06:57 MIRIAM [id number]) Pain Reassessment Is this a pain reassessment? Yes Presence of Pain Presence of Pain Yes Location Pain Location Body Site Chest Back Description Description Pressure Pain Behavior Rubbing Site IVP Administration Document 07/02/18 06:54 MIRIAM (Rec: 07/02/18 06:57 RG [id number]) Charges for Administration # of IVP Administrations 1 - Scribe Statement The provider has reviewed the documentation as recorded by the Claudia Orr Provider Scribe Attestation: All medical record entries made by the Scribe were at my direction and personally dictated by me. I have reviewed the chart and agree that the record accurately reflects my personal performance of the history, physical exam, medical decision making, and the department course for this patient. I have also personally directed, reviewed, and agree with the discharge instructions and disposition. Disposition/Present on Arrival - Present on Arrival Any Indicators Present on Arrival: Yes History of DVT/PE: No History of Uncontrolled Diabetes: Yes Urinary Catheter: No History of Decub. Ulcer: No History Surgical Site Infection Following: None - Disposition Have Diagnosis and Disposition been Completed?: Yes Diagnosis: Chest pain Disposition: HOME/ ROUTINE Disposition Time: 07:40 Patient Plan: Discharge Condition: IMPROVED Discharge Instructions (ExitCare): Costochondritis (DC), Chest Pain (ED) Additional Instructions: MISSY BRUCE, thank you for letting us take care of you today. Your provider was Ric Krishnamurthy DO and you were treated for Chest Pain. The emergency medical care you received today was directed at your acute symptoms. If you were prescribed any medication, please fill it and take as directed. It may take several days for your symptoms to resolve. Return to the Emergency Department if your symptoms worsen, do not improve, or if you have any other problems. Please contact your doctor or call one of the physicians/clinics you have been referred to that are listed on the Patient Visit Information form that is included in your discharge packet. Bring any paperwork you were given at discharge with you along with any medications you are taking to your follow up visit. Our treatment cannot replace ongoing medical care by a primary care provider outside of the emergency department. Thank you for allowing the [email or web address] team to be part of your care today. If you had an X-Ray or CT scan: A Radiologist will review the ED reading if any change in treatment is needed we will contact you. If you had a blood, urine, or wound culture: It will take several days for the results, if any change in treatment is needed we will contact you. If you had an STI test: It will take 48 hours for the results. Please call after 1 week if you have not heard back. Prescriptions: Acetaminophen [Tylenol Extra Strength] 500 mg PO Q4 #30 tablet Referrals: Nely Modi, [Primary Care Provider] - Follow up with primary Forms: [employer] (Grenadian), WORK NOTE
[2018-07-02 07:20] LABS: TROPONIN I < 0.01 ng/mL
[2018-07-02 07:35] LABS: INR 1.13; PARTIAL THROMBOPLASTIN TIME 28.8 Seconds (25.1-36.5)
[2018-07-02 07:36] VITALS: BP 119/64; PULSE 66; RESP 18; TEMP 97.9; O2SAT 100
[2018-07-02 07:42] LABS: D DIMER < 200 ng/mlDDU (0-243)
--- NOTE | 2018-07-02 10:42 | RAD ---
Date of service: 07/02/2018 HISTORY: cp COMPARISON: 01/06/2018 FINDINGS: LUNGS: No active pulmonary disease. PLEURA: No significant pleural effusion identified, no pneumothorax apparent. CARDIOVASCULAR: No aortic atherosclerotic calcification present. Normal cardiac size. No pulmonary vascular congestion. OSSEOUS STRUCTURES: No significant abnormalities. VISUALIZED UPPER ABDOMEN: Normal. OTHER FINDINGS: Right-sided central line terminating at the junction of the SVC and right atrium IMPRESSION: No active disease.
--- NOTE | 2018-07-02 12:39 | CARD ---
APPROVED REPORT Date of service: 07/02/2018 EKG Measurement Heart [id number] MD [id number] <Conclusion> Normal sinus rhythm Left ventricular hypertrophy NSSTW changes
== END 2018-07-02 08:01 | disposition home or self-care (01) ==
LOC: ED 06:15
DX: R07.9 Chest pain, unspecified (principal); E11.9 Type 2 diabetes mellitus without complications; I10 Essential (primary) hypertension; Z87.891 Personal history of nicotine dependence; I25.10 Atherosclerotic heart disease of native coronary artery without angina pectoris
CPT/HCPCS: 71045; 80053; 82550; 83615; 83735; 84484; 85025; 85378; 85610; 85730; 93005; 96374; 99283; J1885

== ENCOUNTER 2018-07-27 17:12 | Observation (INO) | payer MEDICARE, OTHER ==
[2018-07-27 17:15] VITALS: BMI 27.3
--- NOTE | 2018-07-27 17:33 | ED PDOC ---
Arrival/HPI - General Chief Complaint: Chest Pain Time Seen by Provider: 07/27/18 17:14 Historian: Patient - History of Present Illness Narrative History of Present Illness (Text): 07/27/18 17:30 A 67 year old female, whose past medical history includes ovarian cancer s/p bilateral salpingo-oophorectomy, colorectal cancer s/p resection, cholecystectomy, NIDDM, hypertension, seizure disorder, and osteoarthritis, presents to the emergency department complaining of pressure-like chest pain starting 1 hour [employer]. Patient reports she went outside for a walk, and upon arriving back home she began experiencing the pain. States pain remains the same severity with deep breathing and with movement/pressing down onto chest. Patient notes also experiencing abdominal pain, however denies any urinary symptoms, falls, shortness of breath, nausea, vomiting, diarrhea, constipation, bilateral leg swelling, or any other complaints at this time. Denies any history of hypertension or cardiac stents. Mentions taking Plavix 10 mg, Aspirin 175 mg, and other medications for diabetes. Mentions having chronic back pain as well. PMD: Dr. Modi Past Medical History - Provider Review Nursing Documentation Reviewed: Yes - Past History Past History: Non-Contributing - Infectious Disease Hx of Infectious Diseases: None - Tetanus Immunization Tetanus Immunization: Unknown - Reproductive Menopause: Yes - Past Medical History Past Medical History: No Previous - Cardiac Hx Cardiac Disorders: Yes (CAD) - Pulmonary Hx Respiratory Disorders: Yes (USED TO SMOKE CIGARETTES. QUIT 07-27-2009) - Neurological Hx Neurological Disorder: Yes Hx Headaches: Yes Hx Seizures: Yes - HEENT Hx HEENT Disorder: No - Renal Hx Renal Disorder: Yes Hx Kidney Stones: Yes (cystoscopy with stent) Other/Comment: lithotripsy - Endocrine/Metabolic Hx Diabetes Mellitus Type 2: Yes - Hematological/Oncological Hx Blood Disorders: Yes - Integumentary Hx Dermatological Disorder: No - Musculoskeletal/Rheumatological Hx Musculoskeletal Disorders: No Other/Comment: stent in right knee - Gastrointestinal Hx Gastrointestinal Disorders: Yes (RECTAL BLEED,APPENDECTOMY) - Genitourinary/Gynecological Hx Genitourinary Disorders: Yes (OVARIAM CA DXED 2014,HYSTERECTOMY) - Psychiatric Hx Psychophysiologic Disorder: Yes Hx Anxiety: Yes Hx Substance Use: No - Surgical History Hx Appendectomy: Yes Hx Cholecystectomy: Yes Hx Hysterectomy: Yes Other/Comment: CYSTOSCOPY - Anesthesia Hx Anesthesia: No Hx Anesthesia Reactions: Yes Hx Malignant Hyperthermia: No - Suicidal Assessment Feels Threatened In Home Enviroment: No Family/Social History - Physician Review Nursing Documentation Reviewed: Yes Family/Social History: No Known Family HX Smoking Status: Former Smoker Hx Alcohol Use: No Hx Substance Use: No Hx Substance Use Treatment: No Allergies/Home Meds Allergies/Adverse Reactions: Allergies No Known Allergies Allergy (Verified 07/02/18 06:21) Home Medications: Home Meds Medication Instructions Recorded Confirmed Metformin HCl [Glucophage] 1,000 mg PO BID 05/02/17 07/02/18 Capecitabine 500 mg PO BID 06/11/17 07/02/18 Clopidogrel [Plavix] 70 mg PO DAILY 03/23/18 07/02/18 Dapagliflozin Propanediol [Farxiga] 5 mg PO DAILY 03/23/18 07/02/18 Insulin Detemir [Levemir] 20 units SQ DAILY 03/23/18 07/02/18 Review of Systems - Physician Review All systems were reviewed & negative as marked: Yes - Review of Systems Constitutional: absent: Other (no falls) Respiratory: absent: SOB Cardiovascular: Chest Pain (pressure-like) Gastrointestinal: Abdominal Pain (left-side). absent: Constipation, Diarrhea, Nausea, Vomiting Genitourinary Female: absent: Dysuria, Frequency, Hematuria, Urine Output Changes Musculoskeletal: absent: Other (no bilateral leg swelling) Physical Exam Vital Signs Reviewed: Yes Vital Signs Temp Pulse Resp BP Pulse Ox 07/27/18 17:13 98.6 F 70 18 156/79 H 99 Temperature: Afebrile Blood Pressure: Hypertensive Pulse: Regular Respiratory Rate: Normal Appearance: Positive for: Well-Appearing, Non-Toxic, Comfortable Pain Distress: None Mental Status: Positive for: Alert and Oriented X 3 - Systems Exam Head: Present: Atraumatic, Normocephalic Pupils: Present: PERRL Extroacular Muscles: Present: EOMI Conjunctiva: Present: Normal Mouth: Present: Moist Mucous Membranes Neck: Present: Normal Range of Motion Respiratory/Chest: Present: Clear to Auscultation, Good Air Exchange. No: Respiratory Distress, Accessory Muscle Use Cardiovascular: Present: Regular Rate and Rhythm, Normal S1, S2. No: Murmurs Abdomen: Present: Other (LLQ pain). No: Tenderness, Distention, Peritoneal Signs Back: Present: Normal Inspection Upper Extremity: Present: Normal Inspection. No: Cyanosis, Edema Lower Extremity: Present: Normal Inspection. No: Edema Neurological: Present: GCS=15, CN II-XII Intact, Speech Normal Skin: Present: Warm, Dry, Normal Color. No: Rashes Psychiatric: Present: Alert, Oriented x 3, Normal Insight, Normal Concentration Medical Decision Making ED Course and Treatment: 07/27/18 17:36 Impression: 67 year old female with pressure-like chest pain and left-side abdominal pain. Plan: -- EKG -- Chest X-Ray -- Labs -- Gallbladder Ultrasound -- Reassess and disposition Prior Visits: Notes and results from previous visits were reviewed. Patient was last seen in the emergency department on 07/02/2018 for chest pain. Patient was discharged home. Progress Notes: 07/27/18 19:43 labs unremarkable CXR unremarkable pending CTAP. No peritoneal signs, pt in NAD will require admission for serial trops appreciate consultation w/ Dr. Adhikari: to admit to her service - RAD Interpretation Radiology Orders: 07/27/18 17:20 CHEST TWO VIEWS (PA/LAT) [RAD] Stat GALLBLADDER & COMMON DUCT [US] Stat - Scribe Statement The provider has reviewed the documentation as recorded by the Sangiblucia Cedillo Provider Scribe Attestation: All medical record entries made by the Scribe were at my direction and personally dictated by me. I have reviewed the chart and agree that the record accurately reflects my personal performance of the history, physical exam, medical decision making, and the department course for this patient. I have also personally directed, reviewed, and agree with the discharge instructions and disposition. Disposition/Present on Arrival - Present on Arrival Any Indicators Present on Arrival: No History of DVT/PE: No History of Uncontrolled Diabetes: Yes Urinary Catheter: No History of Decub. Ulcer: No History Surgical Site Infection Following: None - Disposition Have Diagnosis and Disposition been Completed?: Yes Diagnosis: Chest pain, Abdominal pain Disposition Time: 19:43 Condition: STABLE Discharge Instructions (ExitCare): Chest Pain (ED) Forms: [employer] (Tajik)
[2018-07-27 17:53] LABS: BASO # 0.04 K/mm3 (0.0-2.0); BASO % 0.6 % (0.0-3.0); EOS # 0.3 (0.0-0.7); EOS % 4.3 % (1.5-5.0); HEMOGLOBIN 12.3 g/dL (12.0-16.0); LYMPH # 3.1 (1.2-3.4); LYMPH % 43.5 % (22.0-35.0); MEAN CELL VOLUME 98.1 fl (80.0-105.0); MEAN CORPUSCULAR HGB CONC 33.6 g/dl (31.0-37.0); MEAN PLATELET VOLUME 10.2 fl (7.0-11.0); MONO # 0.6 (0.1-0.6); MONO % 8.1 % (1.0-6.0); RBC 3.73 10^6/uL (3.5-6.1); RED CELL DISTRIBUTION WIDTH 15.8 % (11.5-14.5); WHITE BLOOD COUNT 7.2 10^3/uL (4.5-11.0)
[2018-07-27 18:18] LABS: B-TYPE NATRIURETIC PEPTIDE 43.3 pg/mL (0-450); TROPONIN I < 0.01 ng/mL
[2018-07-27 18:34] LABS: INR 1.23; PARTIAL THROMBOPLASTIN TIME 32.8 Seconds (26.9-38.3); PROTHROMBIN TIME 13.6 SECONDS (9.4-12.5)
[2018-07-27] MEDS ORDERED: Iohexol 350 MG/100 ML VIAL ONE (18:34)
[2018-07-27 18:53] LABS: ALB/GLOB RATIO 1.3 (1.1-1.8); ALBUMIN 3.7 g/dL (3.0-4.8); ALT/SGPT 49 U/L (7-56); AST/SGOT 77 U/L (14-36); BLOOD UREA NITROGEN 9 mg/dL (7-21); CALCIUM 8.7 mg/dL (8.4-10.5); GFR NON-AFRICAN AMERICAN > 60
[2018-07-27] MEDS: Insulin Lispro (humaLOG) MEDIUM Coverage SC SCH (21:51)
[2018-07-27] MEDS ORDERED: Insulin Detemir 100 units/ml Vial (Levemir) SC SCH (22:00)
--- NOTE | 2018-07-28 00:16 | HP ---
DATE OF EXAM: 07/27/2018 HISTORY OF PRESENT ILLNESS: The patient is a 67-year-old female who come into emergency room because of chest pressure. Denies any radiation. No history of associated nausea or vomiting. The patient states she went out for walk and she came back she was having chest discomfort more so on deep breathing and also on moving. Denies any nausea or vomiting. No history of hemoptysis. No hematemesis. No fever or chills. No cough or congestion. PAST MEDICAL HISTORY: 1. Significant for CA colon. 2. History of ovarian CA status post bilateral salpingo oophorectomy with hysterectomy. 3. Status post cholecystectomy. 4. Partial colectomy. 5. Non-insulin dependent diabetes. 6. Hypertension. 7. History of seizure disorder. 8. Osteoarthritis. ALLERGIES: SHE IS NOT ALLERGIC TO ANY MEDICATIONS. MEDICATIONS AT HOME: She is on metformin 1000 twice a day, Levemir 20 unit at bedtime, mg three times day, Plavix 70 mg daily, capecitabine 500 twice a day, 500 twice a day, Tylenol as needed. SOCIAL HISTORY: She used to be heavy smoker, quit 7 years ago. REVIEW OF SYSTEMS: Significant for chest discomfort, but feels better now. PHYSICAL EXAMINATION GENERAL: She is awake, alert, oriented, communicative. VITAL SIGNS: She is afebrile, pulse 69, respirations 18, blood pressure 142/72. LUNGS: Bilateral fair airflow. No rhonchi or crackle. HEART: S1 and S2 audible. ABDOMEN: Soft, nontender. No rebound. No guarding. NEUROLOGIC: The patient is awake, alert, oriented, able to communicate. EXTREMITIES: Bilateral legs, no edema. LABORATORY DATA: WBC 7.2, hemoglobin 12.3, hematocrit 36, platelets 178. PT 13.6, INR 1.23. Chemistry: Sodium 138, potassium 4.0, chloride 108, CO2 of 22, BUN 9, creatinine 0.7, blood sugar , AST 77, ALT 49. X-ray chest is unremarkable. CT scan of the abdomen and pelvis is pending. IMPRESSION: 1. Chest pain rule out underlying coronary ischemia. 2. Non-insulin dependent diabetes. 3. Hypertension. 4. Hyperlipidemia. 5. History of carcinoma of colon. 6. History of ovarian cancer. PLAN: The patient will be placed on observation. We will monitor her sugar. Follow troponin. Cardiology consult by Dr. Lovelace has been requested. We will monitor blood sugar. Followup CT scan of the abdomen and pelvis. Kirstin Adhikari MD
[2018-07-28] MEDS ORDERED: Pantoprazole 40 mg EC Tab PO SCH (06:00)
[2018-07-28 07:14] LABS: ALB/GLOB RATIO 1.2 (1.1-1.8); ALBUMIN 3.7 g/dL (3.0-4.8); ALT/SGPT 52 U/L (7-56); AST/SGOT 79 U/L (14-36); BLOOD UREA NITROGEN 9 mg/dL (7-21); GFR NON-AFRICAN AMERICAN > 60
[2018-07-28] MEDS: Insulin Lispro (humaLOG) MEDIUM Coverage SC SCH ×3 (07:51→16:01)
[2018-07-28 08:09] VITALS: O2SAT 97
--- NOTE | 2018-07-28 09:17 | CARD ---
APPROVED REPORT Date of service: 07/27/2018 EKG Measurement Heart [id number] OR 116P0 [id number] <Conclusion> Normal sinus rhythm Voltage criteria for left ventricular hypertrophy Abnormal ECG
[2018-07-28] MEDS ORDERED: CAPECITABINE 500 MG PO SCH (10:00)
--- NOTE | 2018-07-28 10:32 | CT ---
Date of service: 07/27/2018 PROCEDURE: CT Abdomen and Pelvis with contrast HISTORY: luq pain COMPARISON: 02/12/2018 TECHNIQUE: Contrast dose: 100 cc of Omni 350 Radiation dose: Total exam DLP = 452.57 mGy-cm. This CT exam was performed using one or more of the following dose reduction techniques: Automated exposure control, adjustment of the mA and/or kV according to patient size, and/or use of iterative reconstruction technique. FINDINGS: LOWER THORAX: Unremarkable. LIVER: Unremarkable. No gross lesion or ductal dilatation. GALLBLADDER AND BILE DUCTS: Gallbladder removed PANCREAS: Unremarkable. No gross lesion or ductal dilatation. SPLEEN: Unremarkable. ADRENALS: Unremarkable. No mass. KIDNEYS AND URETERS: Unremarkable. No hydronephrosis. No solid mass. VASCULATURE: Unremarkable. No aortic aneurysm. No aortic atherosclerotic calcification or mural plaque present. BOWEL: Unremarkable. No obstruction. No gross mural thickening. APPENDIX: Removed PERITONEUM: Unremarkable. No free fluid. No free air. LYMPH NODES: Unremarkable. No enlarged lymph nodes. BLADDER: Unremarkable. REPRODUCTIVE: Unremarkable. BONES: No acute fracture. OTHER FINDINGS: The report concurs with the preliminary [facility] report IMPRESSION: No acute intra-abdominal findings
--- NOTE | 2018-07-28 10:34 | RAD ---
Date of service: 07/27/2018 HISTORY: Chest pain. COMPARISON: 07/02/2018 TECHNIQUE: Chest PA and lateral FINDINGS: LUNGS: No active pulmonary disease. PLEURA: No significant pleural effusion identified. No pneumothorax apparent. CARDIOVASCULAR: No aortic atherosclerotic calcification present. Normal cardiac size. No pulmonary vascular congestion. OSSEOUS STRUCTURES: No significant abnormalities. VISUALIZED UPPER ABDOMEN: Normal. OTHER FINDINGS: None. IMPRESSION: No active disease. No significant interval change compared to the prior examination(s). Concordant results with the preliminary interpretation rendered by the emergency department physician procedure.
[2018-07-28] MEDS ORDERED: CARBAMAZEPINE 200 MG PO SCH (11:45)
[2018-07-28] MEDS ORDERED: Iohexol 350 MG/100 ML VIAL ONE (13:28)
--- NOTE | 2018-07-28 14:48 | CP.PCM.APN ---
Subjective - Date & Time of Evaluation Date of Evaluation: 07/28/18 Time of Evaluation: 11:30 - Subjective Subjective: Pt. seen and examined at bedside, denied chest pain, denied abdominal pain, denied nausea , vomiting. Ambulates with no complaint of chest pain. States no dysuria, or abnormal BM. Objective - Vital Signs/Intake and Output Vital Signs (last 24 hours): Temp Pulse Resp BP Pulse Ox 97.5 F L 67 19 98/51 L 97 07/28/18 08:08 07/28/18 14:00 07/28/18 08:08 07/28/18 08:08 07/28/18 08:08 Intake and Output: 07/28/18 07/28/18 06:59 18:59 Intake Total 0 Balance 0 - Medications Medications: Current Medications Acetaminophen (Tylenol 325mg Tab) 650 mg PO Q6H PRN PRN Reason: Fever >100.4 F Last Admin: 07/28/18 08:00 Dose: 650 mg Carbamazepine (Tegretol) 200 mg PO BID [facility] Clopidogrel Bisulfate (Plavix) 75 mg PO DAILY [facility] Last Admin: 07/28/18 09:17 Dose: 75 mg Cyclobenzaprine HCl (Flexeril) 5 mg PO TID [facility] Last Admin: 07/28/18 09:17 Dose: 5 mg Insulin Detemir (Levemir) 20 unit SC HS [facility] Last Admin: 07/27/18 22:53 Dose: 20 units Insulin Human Lispro (Humalog Med) 0 units SC [facility]; Protocol Last Admin: 07/28/18 11:50 Dose: 1 unit Levetiracetam (Keppra) 750 mg PO BID [facility] Last Admin: 07/28/18 11:50 Dose: 750 mg Metformin HCl (Glucophage) 1,000 mg PO BID [facility] Last Admin: 07/28/18 09:17 Dose: 1,000 mg Pantoprazole Sodium (Protonix Ec Tab) 40 mg PO 0600 [facility] Last Admin: 07/28/18 05:56 Dose: 40 mg - Labs Labs: 07/27/18 17:45 07/28/18 06:15 PT 13.6 SECONDS (9.4-12.5) H 07/27/18 17:45 INR 1.23 07/27/18 17:45 APTT 32.8 Seconds (26.9-38.3) 07/27/18 17:45 - Constitutional Appears: Well, Non-toxic - Head Exam Head Exam: NORMOCEPHALIC - Eye Exam Eye Exam: absent: Conjunctival injection, EOMI, Normal appearance, Nystagmus, Periorbital swelling, Periorbital tenderness, PERRL, Scleral icterus - ENT Exam ENT Exam: absent: Mucous Membranes Dry, Mucous Membranes Moist, Normal Exam, Normal External Ear Exam, Normal Oropharynx, TM's Normal Bilaterally - Neck Exam Neck Exam: Full ROM - Respiratory Exam Respiratory Exam: Clear to Ausculation Bilateral - Cardiovascular Exam Cardiovascular Exam: REGULAR RHYTHM, +S1, +S2 - GI/Abdominal Exam GI & Abdominal Exam: Soft, Normal Bowel Sounds - Rectal Exam Rectal Exam: Deferred - Exam Exam: absent: Circumcision, NORMAL INSPECTION, Scrotal Swelling, Testicular Tenderness, Uretheral Discharge, Testicular Vertical Lie, Bladder Distension External exam: absent: Ecchymosis, Erythema, Lacerations, Lesions, NORMAL EXTERNAL EXAM, Swelling Speculum exam: absent: Cervical Discharge, Erythema, Foreign Body, Laceration, NORMAL SPECULUM EXAM, Tissue, Vaginal Bleeding, Vaginal Discharge Bimanual exam: absent: Adenexal Mass, Adnexal, Cervical Motion Tendernes, NORMAL BIMANUAL EXAM, Uterine Enlargement, Uterine Tenderness - Extremities Exam Extremities Exam: Full ROM - Back Exam Back Exam: Full ROM, NORMAL INSPECTION - Neurological Exam Neurological Exam: Alert, Awake, Oriented x3 - Psychiatric Exam Psychiatric exam: Normal Affect, Normal Mood - Skin Skin Exam: Dry, Intact, Normal Color, Warm Assessment and Plan - Assessment and Plan (Free Text) Assessment: ITS Impressions Chest X-Ray 07/27/18 17:20 IMPRESSION: No active disease. No significant interval change compared to the prior examination(s). Concordant results with the preliminary interpretation rendered by the emergency department physician procedure. Abdomen/Pelvis CT 07/27/18 17:35 IMPRESSION: No acute intra-abdominal findings Impression: 67 year old female with pressure-like chest pain and left-side abdominal pain, admitted for further eval and treatment, with cardiology consulted. Plan: 1. Chest pain, atypical, troponins neg,-- EKG normal, CT Angiogram pending to r/o PE, Echo pending Recs per bonus clerk, cont. Flexeril. 2. Abdominal pain improved. cont Protonix. will continue to monitor clinical status and follow closely. Discussed with consultants and Pmd.
--- NOTE | 2018-07-28 14:59 | CT ---
Date of service: 07/28/2018 PROCEDURE: CT Chest with contrast (Pulmonary Angiogram) HISTORY: R/O PE COMPARISON: None available. TECHNIQUE: Axial computed tomography images were obtained of the chest in the pulmonary arterial phase of enhancement. Coronal and sagittal reformatted images were created and reviewed. Intravenous contrast dose: Radiation dose: Total exam DLP = 443.38 mGy-cm. This CT exam was performed using one or more of the following dose reduction techniques: Automated exposure control, adjustment of the mA and/or kV according to patient size, and/or use of iterative reconstruction technique. FINDINGS: PULMONARY ARTERIES: Unremarkable. No pulmonary embolism. AORTA: No acute findings. No thoracic aortic aneurysm. No aortic atherosclerotic calcification or mural plaque present. LUNGS: Unremarkable. No nodule, mass or pulmonary consolidation. PLEURAL SPACES: Unremarkable. No effusion or pneumothorax. HEART: Unremarkable. No cardiomegaly. No significant pericardial effusion. LYMPH NODES: No lymphadenopathy. BONES, CHEST WALL: Unremarkable. No fracture or destructive lesion OTHER FINDINGS: Gallbladder removed IMPRESSION: Unremarkable CT pulmonary angiogram. No pulmonary embolus.
--- NOTE | 2018-07-28 15:53 | PN ---
DATE: 07/28/2018 SUBJECTIVE: The patient is a 67-year-old, seen and examined. She states that chest pressure is much better than before. No nausea, no vomiting. No fever. No chills. PHYSICAL EXAMINATION VITAL SIGNS: She is afebrile. Pulse 65, respirations 19, blood pressure 98/51. LUNGS: Bilateral fair airflow. No rhonchi or crackle. HEART: S1 and S1 audible. ABDOMEN: Soft, nontender. No bound. No guarding. NEUROLOGIC: The patient is awake, alert, oriented, able to communicate. LABORATORY DATA: WBC 7.2, hemoglobin 12.3, hematocrit 36, platelet 178. Sodium 139, potassium 4.1, chloride 107, CO2 of 26, BUN 9, creatinine , blood sugar 193. CT scan of the abdomen and pelvis was done that is unremarkable. One set of troponin is negative. Second one is pending. awaiting cardiology input. ASSESSMENT: 1. Chest pain seems to be noncardiac. 2. Non-insulin dependent diabetes. 3. History of seizure disorder. 4. Coronary artery disease. 5. Peptic ulcer disease. 6. History carcinoma of the colon. 7. History of ovarian cancer. PLAN: troponin after cardiology evaluation, we will decide if the patient need further intervention. The patient is not sure when was her last stress test, however, she had cardiac cath done in 05/[address] Benjie Lovelace. At that point, her LV function was pretty good and ejection fraction of 60%, she has 60% in RCA, she has critical stenosis of right iliac that was addressed by Dr. Benjie Lott. She is being followed by Dr. Yanes, waiting his input. We will follow up the patient. Kirstin Adhikari MD
--- NOTE | 2018-07-28 16:25 | CARD ---
APPROVED REPORT Date of service: 07/28/2018 EXAM: Two-dimensional and M-mode echocardiogram with Doppler and color Doppler. INDICATION Chest Pain 2D DIMENSIONS Left Atrium (2D)3.5 (1.6-4.0cm)IVSd0.9 (0.7-1.1cm) LVDd4.5 (3.9-5.9cm)PWd1.0 (0.7-1.1cm) LVDs3.4 (2.5-4.0cm)FS (%) 25.6 % LVEF (%)50.4 (>50%) M-Mode DIMENSIONS Aortic Root2.80 (2.2-3.7cm)Aortic Cusp Exc.1.60 (1.5-2.0cm) Aortic Valve AoV Peak Rurksgey006.0cm/Nell Peak GR.13mmHg Mitral Valve MV E Dxlsnzuu58.5cm/sMV A Xaaifnok138.0cm/sE/A ratio0.8 TDI Lateral E' Peak V10.00cm/sMedial E' Peak V8.58cm/sE/Lateral E'8.1 E/Medial E'9.4 Pulmonary Valve PV Peak Swikseoe57.1cm/sPV Peak Grad.2mmHg Tricuspid Valve TR Peak Wujwehhl296qh/sRAP [id number] Peak Gr.31mmHg [id number] LEFT VENTRICLE The left ventricle is normal size. There is normal left ventricular wall thickness. Left ventricle systolic function is borderline. There is normal LV segmental wall motion. Transmitral Doppler flow pattern is Grade I-abnormal relaxation pattern. RIGHT VENTRICLE The right ventricle is normal size. There is normal right ventricular wall thickness. The right ventricular systolic function is normal. ATRIA The left atrium size is normal. The right atrium size is normal. AORTIC VALVE The aortic valve is mildly thickened. No aortic regurgitation is present. There is no aortic valvular stenosis. MITRAL VALVE The mitral valve is normal in structure. There is no mitral valve regurgitation noted. There is no mitral valve stenosis. TRICUSPID VALVE There is mild tricuspid regurgitation. There is mild pulmonary hypertension. PULMONIC VALVE The pulmonary valve is normal in structure. There is no pulmonic valvular regurgitation. GREAT VESSELS The aortic root is normal in size. The IVC is normal in size and collapses >50% with inspiration. PERICARDIAL EFFUSION There is no pericardial effusion. <Conclusion> There is normal left ventricular wall thickness. Left ventricle systolic function is borderline. There is normal LV segmental wall motion. Transmitral Doppler flow pattern is Grade I-abnormal relaxation pattern. There is mild tricuspid regurgitation. There is mild pulmonary hypertension.
[2018-07-28 18:08] VITALS: BP 116/60; PULSE 65; RESP 18; TEMP 98.2
--- NOTE | 2018-07-28 20:26 | CON ---
DATE: 07/28/2018 CARDIOLOGY CONSULTATION REASON FOR CONSULTATION: Chest pain. HISTORY OF PRESENT ILLNESS: The patient is a 67-year-old female who has a history of colon cancer. In 2009, underwent partial colectomy and in 2014 according to the patient, she was diagnosed with ovarian cancer and underwent bilateral salpingo-oophorectomy and hysterectomy. The patient is currently undergoing chemotherapy possibly for metastatic disease. The patient presented because of chest pain, which she describes as sharp across the upper sternum lasted for 1 hour. The patient denies any associated diaphoresis or dizziness and denies any associated back pain. The patient underwent cardiac catheterization in 05/2017, i.e., about months ago, which revealed 50% ostial RCA stenosis, which was not critical and at that time the recommendation was to search for noncardiac chest pain. At that time, the patient was found to have a stenosis of the right iliac artery for which the patient underwent an intervention. MEDICATIONS: Flexeril 5 mg t.i.d., Glucophage twice a day, Keppra 750 mg twice a day, Plavix 75 mg once a day, Protonix 40 mg once a day, and Tegretol 200 mg twice a day. PAST MEDICAL HISTORY: Hypertension, diabetes mellitus, seizure disorder, colonic CA, ovarian CA, peripheral vascular disease, status post right iliac artery intervention. SOCIAL HISTORY: The patient was a former smoker. REVIEW OF SYSTEMS: No dizziness or syncope. No fever or chills. No productive cough. PHYSICAL EXAMINATION: GENERAL: The patient is an elderly female who does not appear to be in any distress. VITAL SIGNS: Blood pressure 98/51, heart rate 65, temperature 97.5, and respirations 19. HEENT: Normocephalic. CHEST: Clear. HEART: S1 and S2 regular. ABDOMEN: Soft. EXTREMITIES: No edema. No calf tenderness. LABORATORY DATA: CBC; WBC 7.2, hemoglobin and hematocrit 12.3 and 36.6, and platelet count 278,000. Today's INR and PTT are within normal limits. SMA-7 is within normal limits except for glucose of 139 and anion gap of 9. Two sets of troponins are negative. A chest x-ray was unremarkable. A PICC line is noted. Abdomen and pelvis CT scan, no acute intraabdominal findings. EKG revealed normal sinus rhythm. ASSESSMENT: 1. Chest pain, myocardial infarction is ruled out. 2. Rule out pulmonary infarction. 3. History of metastatic cancer. 4. Seizure disorder. 5. Uncontrolled diabetes mellitus. 6. Peripheral vascular disease, status post intervention on the right iliac artery years ago. RECOMMENDATIONS: Continue current Plavix 75 mg once a day, Protonix 40 mg once a day, and Tegretol 200 mg twice a day. Obtain an urgent chest CT angiogram to rule pulmonary embolus and schedule the patient for an echocardiogram. Matt Ennis MD
== END 2018-07-28 19:04 | disposition home or self-care (01) ==
LOC: ED 17:12 → ERH 19:41 → 3RNO 21:57
PROVIDERS: ADMIT Internal Medicine; ATTEND Internal Medicine
DX: R07.89 Other chest pain (principal); E11.51 Type 2 diabetes mellitus with diabetic peripheral angiopathy without gangrene; E78.5 Hyperlipidemia, unspecified; G40.909 Epilepsy, unspecified, not intractable, without status epilepticus; I10 Essential (primary) hypertension; I25.10 Atherosclerotic heart disease of native coronary artery without angina pectoris; G89.29 Other chronic pain; K27.9 Peptic ulcer, site unspecified, unspecified as acute or chronic, without hemorrhage or perforation; Z87.891 Personal history of nicotine dependence; Z85.038 Personal history of other malignant neoplasm of large intestine; Z85.43 Personal history of malignant neoplasm of ovary; Z79.02 Long term (current) use of antithrombotics/antiplatelets; Z79.4 Long term (current) use of insulin
CPT/HCPCS: 36415; 71046; 71275; 74177; 80053; 82948; 83036; 83880; 84484; 85025; 85610; 85730; 86850; 86900; 93005; 93306; 99285; G0378; Q9967